=== PATIENT | male | born 1950 | race American Indian/Alaskan Native ===

== ENCOUNTER 2016-10-23 16:49 | Inpatient (IN) | payer BC, MEDICARE ==
--- NOTE | 2016-10-23 17:47 | Emergency Department Report ---
ED General Adult HPI - General Chief complaint: Chest Pain Stated complaint: CHEST PAIN Time Seen by Provider: 10/23/16 17:46 Source: patient, EMS (ems notes not available at time of chart dictation), RN notes reviewed Mode of arrival: Stretcher Limitations: Physical Limitation - History of Present Illness Initial comments: This is a 66-year-old male. He is previously unknown to me. He comes [facility] us from a local prison. Primary care doctor is Dr. Tinoco. Past medical history includes chronic pain, spinal stenosis, diabetes, bipolar, schizophrenia, congestive heart failure, atrial fibrillation, currently on anticoagulation ( xarelto). The patient indicates the chest pain as central, cannot describe exacerbating or relieving factors, patient is not certain if he's had an thromboembolic disease, he doesn't indicate compliance with his systemic anticoagulation. There is no vomiting or diaphoresis. -: Gradual Location: chest Severity scale (0 -10): 7 Consistency: intermittent Improves with: none Worsens with: none Associated Symptoms: chest pain - Related Data Home Medications Medication Instructions Recorded Confirmed Last Taken ALBUTEROL NEB's 2.5 mg INHALATION Q6HR 10/23/16 10/23/16 Unknown Acetaminophen 325 mg PO Q6HR PRN 10/23/16 10/23/16 Unknown Bumetanide 1 mg PO BID 10/23/16 10/23/16 Unknown Carvedilol 25 mg PO BID 10/23/16 10/23/16 Unknown Dilantin 100 mg PO HS 10/23/16 10/23/16 Unknown Donepezil 5 mg PO HS 10/23/16 10/23/16 Unknown Ergocalciferol 50,000 units PO QWEEK 10/23/16 10/23/16 Unknown Famotidine 20 mg PO BID 10/23/16 10/23/16 Unknown Losartan 25 mg PO DAILY 10/23/16 10/23/16 Unknown Lyrica 200 mg PO BID 10/23/16 10/23/16 Unknown Phenytoin 300 mg PO BID 10/23/16 10/23/16 Unknown Prednisone 5 mg PO DAILY 10/23/16 10/23/16 Unknown Rivaroxaban 20 mg PO DAILY 10/23/16 10/23/16 Unknown Spironolactone 25 mg PO DAILY 10/23/16 10/23/16 Unknown Venlafaxine HCl 75 mg PO BID 10/23/16 10/23/16 Unknown levETIRAcetam 1,000 mg PO BID 10/23/16 10/23/16 Unknown metFORMIN 500 mg PO BID 10/23/16 10/23/16 Unknown Allergies Allergy/AdvReac Type Severity Reaction Status Date / Time No Known Allergies Allergy Verified 10/23/16 17:35 ED Review of Systems ROS: Stated complaint: CHEST PAIN Other details as noted in HPI Constitutional: denies: malaise Eyes: denies: vision change ENT: denies: epistaxis Respiratory: see HPI Cardiovascular: chest pain Gastrointestinal: denies: nausea Genitourinary: as per HPI Musculoskeletal: as per HPI Skin: as per HPI Neurological: weakness Psychiatric: as per HPI ED Past Medical Hx - Past Medical History Hx Congestive Heart Failure: Yes Hx Diabetes: Yes Hx Psychiatric Treatment: Yes (bipolar, depression) - Surgical History Past Surgical History?: Yes Additional Surgical History: righrt leg amputation 10 years ago - Social History Smoking Status: Never Smoker Substance Use Type: None - Medications Home Medications: Home Medications Medication Instructions Recorded Confirmed Last Taken Type ALBUTEROL NEB's 2.5 mg INHALATION Q6HR 10/23/16 10/23/16 Unknown History Acetaminophen 325 mg PO Q6HR PRN 10/23/16 10/23/16 Unknown History Bumetanide 1 mg PO BID 10/23/16 10/23/16 Unknown History Carvedilol 25 mg PO BID 10/23/16 10/23/16 Unknown History Dilantin 100 mg PO HS 10/23/16 10/23/16 Unknown History Donepezil 5 mg PO HS 10/23/16 10/23/16 Unknown History Ergocalciferol 50,000 units PO QWEEK 10/23/16 10/23/16 Unknown History Famotidine 20 mg PO BID 10/23/16 10/23/16 Unknown History Losartan 25 mg PO DAILY 10/23/16 10/23/16 Unknown History Lyrica 200 mg PO BID 10/23/16 10/23/16 Unknown History Phenytoin 300 mg PO BID 10/23/16 10/23/16 Unknown History Prednisone 5 mg PO DAILY 10/23/16 10/23/16 Unknown History Rivaroxaban 20 mg PO DAILY 10/23/16 10/23/16 Unknown History Spironolactone 25 mg PO DAILY 10/23/16 10/23/16 Unknown History Venlafaxine HCl 75 mg PO BID 10/23/16 10/23/16 Unknown History levETIRAcetam 1,000 mg PO BID 10/23/16 10/23/16 Unknown History metFORMIN 500 mg PO BID 10/23/16 10/23/16 Unknown History ED Physical Exam - General Limitations: Physical Limitation General appearance: obese - Head Head exam: Present: atraumatic, normocephalic - Eye Eye exam: Present: normal appearance, EOMI. Absent: nystagmus - ENT ENT exam: Present: normal exam, normal orophraynx, mucous membranes moist, normal external ear exam - Neck Neck exam: Present: normal inspection, full ROM. Absent: tenderness, meningismus - Respiratory Respiratory exam: Present: normal lung sounds bilaterally. Absent: respiratory distress, wheezes, rales, rhonchi, stridor, chest wall tenderness, accessory muscle use, decreased breath sounds, prolonged expiratory - Cardiovascular Cardiovascular Exam: Present: regular rate, irregular rhythm, normal heart sounds. Absent: systolic murmur, diastolic murmur, rubs, gallop - GI/Abdominal GI/Abdominal exam: Present: soft, normal bowel sounds. Absent: distended, tenderness, guarding, rebound, rigid, pulsatile mass - Rectal Rectal exam: Present: deferred - Extremities Exam Extremities exam: Present: normal inspection, normal capillary refill, pedal edema, other (patient has a history of right lower extremity above-knee amputation). Absent: calf tenderness - Back Exam Back exam: Present: normal inspection, CVA tenderness (L). Absent: muscle spasm , paraspinal tenderness, vertebral tenderness - Neurological Exam Neurological exam: Present: alert, other (Extraocular movements intact. Tongue midline. No facial droop. Facial sensation intact to light touch in the V1, V2 , V3 distribution bilaterally. 5 and 5 strength in 4 extremities.. Sensation is intact to light touch in 4 extremities.). Absent: motor sensory deficit - Psychiatric Psychiatric exam: Present: flat affect - Skin Skin exam: Present: warm, dry, intact, normal color. Absent: rash ED Course Vital Signs 10/23/16 17:37 Temperature 98 F Pulse Rate 87 Respiratory 16 Rate Blood Pressure 138/74 O2 Sat by Pulse 95 Oximetry - Reevaluation(s) Reevaluation #1: 10/23/16 18:42 Differential diagnosis: Pneumonia, acute coronary syndrome, GERD, gastritis, reflux, pulmonary embolus Assessment and plan: 66-year-old male with atypical chest pain. Patient has psychiatric illness, he is a poor historian. He is not actively psychotic, and he does not require 1013. He is taking systemic anticoagulation for chronic atrial fibrillation as per his prison documentation. Patient will be admitted for acute coronary syndrome risk stratification. He appears quite comfortable now. I think pulmonary embolus is unlikely as the patient is not hypoxic, not tachycardic, and is taking systemic anticoagulation. The case is discussed with the Hospital physician, Dr. Mercado, who accepts the patient to his service. 10/23/16 21:02 ED Medical Decision Making - Lab Data Result diagrams: 10/23/16 17:56 10/23/16 17:56 Vital Signs 10/23/16 17:37 Temperature 98 F Pulse Rate 87 Respiratory 16 Rate Blood Pressure 138/74 O2 Sat by Pulse 95 Oximetry Lab Results 10/23/16 10/23/16 Range/Units 17:56 17:56 WBC 9.0 (4.5-11.0) K/mm3 RBC 4.95 (3.65-5.03) M/mm3 Hgb 12.2 (11.8-15.2) gm/dl Hct 39.1 (35.5-45.6) % MCV 79 L (84-94) fl MCH 25 L (28-32) pg MCHC 31 L (32-34) % RDW 18.2 H (13.2-15.2) % Plt Count 155 (140-440) K/mm3 Lymph % (Auto) 33.6 (13.4-35.0) % [place] % (Auto) 7.4 H (0.0-7.3) % Eos % (Auto) 1.3 (0.0-4.3) % Baso % (Auto) 0.4 (0.0-1.8) % Lymph # 3.0 (1.2-5.4) K/mm3 [place] # 0.7 (0.0-0.8) K/mm3 Eos # 0.1 (0.0-0.4) K/mm3 Baso # 0.0 (0.0-0.1) K/mm3 Seg Neutrophils % 57.3 (40.0-70.0) % Seg Neutrophils # 5.1 (1.8-7.7) K/mm3 Sodium 139 (137-145) mmol/L Chloride 99.6 (98-107) mmol/L Carbon Dioxide 28 (22-30) mmol/L BUN 10 (9-20) mg/dL Creatinine 0.8 (0.8-1.5) mg/dL Estimated GFR > 60 ml/min BUN/Creatinine Ratio 12.50 % Glucose 109 H (75-100) mg/dL Calcium 9.8 (8.4-10.2) mg/dL Troponin T < 0.010 (0.00-0.029) ng/mL - EKG Data When compared to previous EKG there are: previous EKG unavailable 10/23/16 18:43 Atrial fibrillation, 91 beats per minute, low voltage, poor R-wave progression, incomplete right bundle branch block, not morphologically consistent with STEMI. There is no prior EKG available for comparison. - Radiology Data Radiology results: image reviewed Critical care attestation.: If time is entered above; I have spent that time in minutes in the direct care of this critically ill patient, excluding procedure time. ED Disposition Clinical Impression: Chest pain, Abnormal EKG Disposition: OP ADMITTED IP TO THIS HOSP Is pt being admited?: Yes Does the pt Need Aspirin: Yes Condition: Good
[2016-10-23 18:12] LABS: Basophils % (Auto) 0.4 % (0.0-1.8); Eosinophils % (Auto) 1.3 % (0.0-4.3); Hematocrit 39.1 % (35.5-45.6); Hemoglobin 12.2 gm/dl (11.8-15.2); Mean Corpuscular HGB Conc 31 % (32-34); Mean Corpuscular Volume 79 fl (84-94); Platelet Count 155 K/mm3 (140-440); Red Blood Count 4.95 M/mm3 (3.65-5.03); Red Cell Distribution Width 18.2 % (13.2-15.2)
[2016-10-23 18:15] LABS: Mean Corpuscular Hemoglobin 25 pg (28-32)
[2016-10-23 18:31] LABS: Blood Urea Nitrogen 10 mg/dL (9-20); Calcium 9.8 mg/dL (8.4-10.2); Carbon Dioxide 28 mmol/L (22-30); Chloride 99.6 mmol/L (98-107); Glucose 109 mg/dL (75-100); Sodium 139 mmol/L (137-145)
--- NOTE | 2016-10-23 18:31 | Admit Criteria Form ---
Admission Criteria Documentation: CARDIOLOGY GRG Clinical Indications for Admission to Inpatient Care ( Place 'X' for any and all applicable criteria): Hospital admission is needed for appropriate care of the patient because of ANY ONE of the following (1): [ ] I. Hemodynamic instability as indicated by ALL of the following (1)(2)(3) (4)(5) [ ]a) Vital signs or other findings not as expected for chronic patient condition or baseline [ ]b) Instability indicated by ANY ONE of the following: [ ]i) Hypotension [ ]ii) Symptomatic Tachycardia unresponsive to treatment ( e.g., analgesia, fluids, sedation as indicated) [ ]iii) Inadequate perfusion indicated by ANY ONE of the following: [ ] 1) Lactic acidosis (> 2 mmol/L) [ ] 2) New abnormal capillary refill (> 3 seconds) [ ] 3) Reduced urine output [ ] 4) New altered mental status [ ]iv) Orthostatic vital sign changes unresponsive to treatment (e.g., fluids) [ ]v) IV inotropic or vasopressor medication required to maintain adequate blood pressure or perfusion [ ] II. Severe heart failure as indicated by ANY ONE of the following(17)(18) [ ]a) Respiratory distress [ ]b) Hypotension [ ]c) Anasarca (refractory to outpatient therapy) [ ]d) Cardiac arrhythmias of immediate concern [ ]e) Myocardial ischemia [ ] III. Cardiac arrhythmias or findings of immediate concern indicated by ANY ONE of the following (19)(20): [ ] a) Heart rhythms that are inherently dangerous or unstable indicated by ANY ONE of the following (21)(22)(23): [ ] i) Resuscitated ventricular fibrillation or cardiac arrest [ ] ii) Ventricular escape rhythm [ ] iii) Sustained ventricular tachycardia (30 seconds or more of ventricular rhythm at greater than 100 beats per minute) [ ] iv) Nonsustained ventricular tachycardia and ANY ONE of the following: [ ] 1) Suspected cardiac ischemia as cause or consequence of ventricular tachycardia [ ] 2) In setting of acute myocarditis [ ] b) Unstable cardiac conduction defects indicated by ANY ONE of the following(23)(24)(25) [ ] i) Type II second-degree atrioventricular block [ ]ii) Third-degree atrioventricular block [ ]iii) New-onset left bundle branch block with suspected myocardial ischemia [ ]c) Any heart rhythm and ANY ONE of the following (21)(22)(26)(27) (28) [ ] i) Continuous long-term ECG monitoring needed (e.g., initiation of drug requiring monitoring for more than 24 hours) [ ] ii) Patient has automatic implanted cardioverter defibrillator that is repeatedly firing, malfunctioning, or in need of immediate adjustment of settings beyond the scope of ambulatory or observation care [ ]d) Heart rhythms of concern due to ANY ONE of the following: [ ] i) Hypotension [ ] ii) Respiratory distress [ ] iii) Association with other significant symptoms (e.g., bradycardia with syncope or ongoing dizziness, supraventricular tachycardia with chest pain (14)(15)(17) [ ] IV. Monitoring for cardiac contusion beyond the scope of observation care needed [A](30)(31)(32) [ ] V. Surgical or device complication (e.g., valve replacement complication , pacemaker dysfunction) (35)(41)(44)(45)(46) [ ] . Inpatient palliative care needed. [B](49) Also use Inpatient Palliative Care Criteria [ ] VII. Nonbacterial thrombotic (marantic) endocarditis (36)(43)(47)(48) [X] VIII. Cardiology condition, symptom, or finding for which emergency and observation care has failed or are not considered appropriate. [ ] IX. Acute valvular disease requiring inpatient as indicated by ANY ONE of the following (41) [ ]a) Acute valvular regurgitation (42) [ ]b) Noninfectious valvulitis (43) [ ]c) Obstructive valve thrombosis [ ]d) Paravalvular leak [ ]e) Other significant valvular disorder remaining after emergency or observation level of care (as appropriate) [ ]X. Pericardial disease requiring inpatient treatment as indicated by ANY ONE of the following (33)(34)(35)(36)(37) [ ]a) Suspected tamponade (38)(39)(40) [ ]b) Hemopericardium [ ]c) Other significant pericardial disorder remaining after emergency or observation level of care (as appropriate) [ ] XI. Cardiac ischemia beyond scope of emergency and observation care. [ ] XII. Hypertension requiring inpatient treatment as indicated by ANY ONE of the following (6)(7)(8) [ ]a) SBP greater than 220 mm Hg or DBP greater than 120 mmHg despite treatment [ ]b) SBP greater than 140 mm Hg or DBP greater than 100 mm Hg with evidence of acute end organ damage as indicated by ANY ONE of the following [ ] i) Altered mental status [ ] ii) Acute renal failure as indicated by new onset of ANY ONE of the following (9)(10)(11)(12)(13) [ ]1) 3-fold rise in serum creatinine from baseline [ ]2) Serum creatinine greater than 4 mg/dL ( 354 micromoles/L) with acute rise greater than 0.5 mg/dL (44.2 micromoles/L) [ ]3) Reduction of more than 75% in estimated glomerular filtration rate from baseline [ ]4) Estimated glomerular filtration rate less than 35 mL/min/1.73m2 (0.59 mL/sec/1.73m2) in child up to 18 years of age [ ]5) Cessation of urine output indicated by ALL of the following [ ]A. Adequate volume status [ ]B. Inadequate urine output as indicated by ANY ONE of the following [ ]a. Urine output less than 0.3 mL/kg/hr for 24 hours [ ]b. Anuria (urine output less than 0.1 mL/kg/hr) for 12 hours [ ] iii) Aortic dissection [ ] iv) Myocardial Ischemia [ ] v) Left ventricular heart failure [ ]vi) Retinal Hemorrhage [ ]vii) Other significant finding [ ]c) Hypertension in child requiring inpatient treatment as indicated by ALL of the following(14)(15)(16) [ ] i) Outpatient treatment not effective, not available, or not appropriate [ ]ii) SBP or DBP greater than 95th percentile for age [ ]iii) Evidence of acute end organ damage as indicated by ANY ONE of the following [ ]1) Altered mental status [ ]2) Acute renal failure as indicated by new onset of ANY ONE of the following(9)(10)(11)(12)(13) [ ]A. 3-fold rise in serum creatinine from baseline [ ]B. Serum creatinine greater than 4 mg/dL (354 micromoles/L) with acute rise greater than 0.5 mg/dL (44.2 micromoles/L) [ ]C. Reduction of more than 75% in estimated glomerular filtration rate from baseline [ ]D. Estimated glomerular filtration rate less than 35 mL/min/1.73m2 (0.59 mL/sec/1.73m2) in child up to 18 years of age [ ]E. Cessation of urine output indicated by ALL of the following [ ]a. Adequate volume status [ ]b. Inadequate urine output as indicated by ANY ONE of the following [ ]i) Urine output less than 0.3 mL/kg/hr for 24 hours [ ]ii) Anuria ( urine output less than 0.1 mL/kg/hr) for 12 hours [ ]3) Severe headache [ ]4) Visual disturbance [ ]5) Retinal hemorrhage [ ]6) Other significant finding [ ]XIII. Complications of transplanted heart indicated by ANY ONE of the following(61): [ ]a) Acute graft rejection requiring inpatient management (eg, intravenous immunosuppression)(62)(63) [ ]b) Acute graft heart failure indicated by ANY ONE of the following(64): [ ]i) Hemodynamic instability [ ]ii) Cardiac arrhythmias of immediate concern [ ]iii) Pulmonary edema that is very severe (eg, mechanical ventilation needed, imminent or likely, need for 100% oxygen to keep oxygen saturation above 90%) [ ]iv) Pulmonary edema that is persistent as indicated by ALL of the following: [ ]1) New need for oxygen therapy to keep oxygen saturation above 90% (or increased FiO2 need from baseline) [ ]2) Has not improved sufficiently with emergency department or observation care IV diuretics or other heart failure treatments[E] [ ]v) Altered mental status that is severe or persistent [ ]vi) Increased creatinine (new on laboratory test) with reduction of more than 50% in estimated glomerular filtration rate from baseline [ ]vii) Progressively (ongoing) rising creatinine (known from past laboratory test) with reduction of more than 25% in estimated glomerular filtration rate from baseline [ ]viii) Acute renal failure [ ]ix) Acute peripheral ischemia (eg, examination shows pulseless, cool, mottled, or cyanotic extremity) [ ]x) Pulmonary artery catheter monitoring needed [ ]xi) Other sign or symptom of heart failure requiring inpatient treatment (ie, too severe or not responsive to outpatient and observation care treatment) [ ]c) Infection requiring inpatient management (eg, Hemodynamic instability, need for intravenous antimicrobial treatment)(66)(67)(68)(69)(70) [ ]d) Cardiac allograft vasculopathy requiring inpatient management ( eg evidence of cardiac ischemia)(71) [ ]e) Other complication of transplanted heart (eg, stroke, severe pulmonary hypertension, severe valvular dysfunction) requiring inpatient management(72) The original [facility] [employer] content created by [facility] has been revised. The portions of the content which have been revised are identified through the use of italic text or in bold, and [facility] has neither reviewed nor approved the modified material. All other unmodified content is copyright [facility] [employer] Please see references footnoted in the original [facility] [employer] edition 2016 Admission Criteria Met: Yes
[2016-10-23] MEDS ORDERED: BABY ASPIRIN PO ONE (18:45)
[2016-10-23 18:49] LABS: INR 1.15 (0.87-1.13)
[2016-10-23 18:50] LABS: Partial Thromboplastin Time 39.1 Sec. (24.2-36.6)
[2016-10-23 19:20] LABS: Anion Gap 16 mmol/L; Potassium 4.9 mmol/L (3.6-5.0)
[2016-10-23] MEDS ORDERED: ACETAMINOPHEN 325 MG PO PRN (20:14)
--- NOTE | 2016-10-23 20:14 | Event Note ---
Date: 10/23/16 See H/p in reports Chest pain r/o ME HTN Morbid obesity S/p R AKA
[2016-10-23] MEDS ORDERED: [UNRECOGNIZED DRUG - OTHER] INHALATION SCH (20:15)
[2016-10-23] MEDS ORDERED: SODIUM CHLORIDE FLUSH SYRINGE 10 ML IV PRN (20:19)
[2016-10-23] MEDS ORDERED: TYLENOL PO PRN ×2 (20:25→20:30)
[2016-10-23] MEDS ORDERED: NON-FORMULARY (Losartan 25 MG) PO SCH (20:30)
[2016-10-23] MEDS ORDERED: NON-FORMULARY (Prednisone 5 MG) PO SCH (20:30)
[2016-10-23] MEDS ORDERED: DILAUDID IV PRN (20:30)
[2016-10-23] MEDS ORDERED: NON-FORMULARY (Spironolactone 25 MG) PO SCH (20:30)
[2016-10-23] MEDS ORDERED: DULCOLAX PR PRN (20:30)
[2016-10-23] MEDS ORDERED: RIVAROXABAN 20 MG PO SCH (20:30)
[2016-10-23] MEDS ORDERED: ZOFRAN IV PRN (20:30)
[2016-10-23] MEDS ORDERED: MILK OF MAGNESIA PO PRN (20:30)
--- NOTE | 2016-10-23 21:09 | History and Physical Report ---
CHIEF COMPLAINT: Left-sided chest pain since morning. HISTORY OF PRESENT ILLNESS: A 66-year-old -[place] male, heavy set with a right above-knee amputation and multiple medical problems including chronic pain, diabetes, bipolar disorder, schizophrenia, congestive heart failure, atrial fibrillation, comes in for retrosternal left-sided chest pain. No radiation. The patient has AFib and is on Xarelto. The patient lives in a fpc. Some diaphoresis present. No palpitations. No radiation. Pain is about 6 on a scale of 1 to 10, intermittent in nature. No exacerbating or relieving factors. This is the first episode of chest pain. Does not remember having a catheterization or stress test in the past. PAST MEDICAL HISTORY: 1. As mentioned asthma. 2. Hypertension. 3. Gastroesophageal reflux disease. 4. Peripheral neuropathy. 5. Seizure disorder. 6. Atrial fibrillation with anticoagulation. 7. Depression. 8. Type 2 diabetes. 9. Bipolar disorder. 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 SOCIAL HISTORY: Does not smoke. No alcohol, no recreational drugs. CURRENT MEDICATIONS: Albuterol 2.5 q.6 h. p.r.n., acetaminophen 325 mg p.o. q. 6 p.r.n., bumetanide 1 mg p.o. b.i.d., Coreg 25 mg twice a day, Dilantin 100 mg p.o. at bedtime, donepezil 5 mg p.o. at bedtime, vitamin D 50,000 units q. weekly, famotidine 20 mg twice a day, losartan 25 mg once a day, Lyrica 200 mg twice a day, phenytoin 300 mg twice a day, prednisone 5 mg p.o. daily, Xarelto 20 mg p.o. daily, spironolactone 25 mg p.o. daily, Effexor 75 mg twice a day, Keppra 1000 mg twice a day, metformin 500 mg twice a day. ALLERGIES: No known allergies. FAMILY HISTORY: Significant for hypertension. PERSONAL HISTORY: Does not smoke. No alcohol, no recreational drugs. Lives at a local fpc. Gets around by the electric power chair. REVIEW OF SYSTEMS: CONSTITUTIONAL: No weight loss, no weight gain. No fever, no chills. HEENT: No sore throat. No postnasal drip. CARDIOVASCULAR AND RESPIRATORY: As mentioned in history of present illness. Left-sided chest pain and retrosternal chest pain present. No cough, no wheezing. GASTROINTESTINAL: No nausea, no vomiting, no diarrhea. MUSCULOSKELETAL: No joint pains. CENTRAL NERVOUS SYSTEM: No syncope, no seizures. EXTREMITIES: Right ____ amputation secondary to right knee surgery. CENTRAL NERVOUS SYSTEM: No syncope, no seizures, no focal deficits. SKIN: No rashes. PSYCHIATRIC: No depression. No suicidal or homicidal ideation. A 14-point review of systems done, otherwise negative other than the chest pain. 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 VITAL SIGNS: Blood pressure is 138/74, temperature is 98, pulse is 87, respirations 16, sats are 95%. HEENT: Unremarkable. Pupils equal and reactive. NECK: Supple, no lymphadenopathy, no thyromegaly. LUNGS: Clear to auscultation and percussion. Good air entry. CARDIOVASCULAR: S1, S2 heard. No gallop, no murmur, no rub. Apical impulse in left fifth intercostal space and midclavicular line. ABDOMEN: Soft and benign. No hepatosplenomegaly. No guarding, no rigidity. Hernial orifices are normal. EXTREMITIES: Left lower extremity, good pedal pulses. Right lower extremity above-knee amputation. SKIN: Normal. LABORATORY DATA: White count is 9000, H and H is 12.2 and 39.1, platelet count is 155,000. Protime is 14.6. INR is 1.15. Sodium is 139, potassium is 4.9, chloride is 99.6, bicarbonate is 28, BUN and creatinine is 10 and 0.8. Estimated GFR is more than 60. Glucose is 109, calcium is 9.8. Troponin is less than 0.010. Phenytoin is 29.2, high. DIAGNOSTIC DATA: EKG shows atrial fibrillation, heart rate of 80 per minute, rate controlled. Chest x-ray, no acute infiltrates. ASSESSMENT AND PLAN: 1. Chest pain, rule out myocardial infarction, chest pain protocol. Differential diagnosis of costochondritis, acute coronary syndrome and gastroesophageal reflux disease. I am more in favor of gastroesophageal reflux disease with severe reflux because of his morbid obesity. We will get a cardiac Lexiscan in the morning and also serial cardiac enzymes in the meantime. The question is whether he needs echocardiogram at this point. 2. Asthma/chronic obstructive pulmonary disease. Continue albuterol inhalers 2 puffs q.i.d. p.r.n. 3. Hypertension. Continue Coreg 25 b.i.d. and losartan 25 mg p.o. daily. 4. Seizure disorder. Continue phenytoin 300 mg twice a day. We shall decrease it to 200 mg because of the high phenytoin levels and also Keppra 1000 mg twice a day 5. Mild dementia. Continue Aricept (donepezil) 5 mg p.o. at bedtime. 6. Type 2 diabetes. The patient is on metformin, which may be secondary to metabolic syndrome. We will get Accu-Cheks and coverage. 7. Gastroesophageal reflux disease. Continue famotidine 20 mg twice a day. 8. Peripheral neuropathy. Continue Lyrica 200 mg twice a day 9. Atrial fibrillation. Continue Xarelto at 20 mg daily. 10. Depression. Continue Effexor 75 mg twice a day. 11. Deep venous thrombosis prophylaxis, Lovenox 40 mg subcutaneous daily. JOB# [id number] VSM/NTS
[2016-10-23 21:57] LABS: Creatine Kinase 57 units/L (55-170)
[2016-10-23 21:59] LABS: Creatine Kinase MB < 1.0 ng/mL (0.0-4.0)
[2016-10-23] MEDS ORDERED: DONEPEZIL 5 MG PO SCH (22:00)
[2016-10-23] MEDS ORDERED: LYRICA 200 MG PO SCH (22:00)
[2016-10-23] MEDS ORDERED: BUMETANIDE 1 MG PO SCH (22:00)
[2016-10-23] MEDS ORDERED: PHENYTOIN 300 MG PO SCH (22:00)
[2016-10-23] MEDS ORDERED: VENLAFAXINE HCL 75 MG PO SCH (22:00)
[2016-10-23] MEDS ORDERED: DILANTIN 100 MG PO SCH (22:00)
[2016-10-23] MEDS ORDERED: NON-FORMULARY (Carvedilol 25 MG) PO SCH (22:00)
[2016-10-23] MEDS ORDERED: NON-FORMULARY (Metformin 500 MG) PO SCH (22:00)
[2016-10-23] MEDS ORDERED: NON-FORMULARY (Famotidine 20 MG) PO SCH (22:00)
[2016-10-23] MEDS ORDERED: NON-FORMULARY (Levetiracetam 1,000 MG) PO SCH (22:00)
[2016-10-23] MEDS: DILANTIN PO SCH (22:40)
[2016-10-23] MEDS: PEPCID PO SCH (22:41)
[2016-10-23] MEDS: LYRICA PO SCH ×2 (22:42→22:43)
[2016-10-23] MEDS: COZAAR PO SCH (22:42)
[2016-10-23] MEDS: KEPPRA PO SCH (22:44)
[2016-10-23] MEDS: COREG PO SCH (22:45)
[2016-10-23] MEDS: EFFEXOR PO SCH (22:45)
[2016-10-23] MEDS: ALDACTONE PO SCH (22:46)
[2016-10-23] MEDS: ARICEPT PO SCH (22:46)
[2016-10-23] MEDS: DELTASONE PO SCH (22:46)
[2016-10-23] MEDS: GLUCOPHAGE PO SCH (22:47)
[2016-10-23] MEDS: XARELTO PO SCH (22:50)
[2016-10-23] MEDS: BUMEX PO SCH (22:51)
[2016-10-23] MEDS: AMBIEN PO PRN (22:51)
[2016-10-23] MEDS: NORCO 5/325 PO PRN (22:51)
[2016-10-23] MEDS: NOVOLOG SUB-Q SCH (22:53)
[2016-10-24] MEDS: PROVENTIL IH SCH ×4 (02:34→21:18)
[2016-10-24 06:59] LABS: Creatine Kinase MB < 1.0 ng/mL (0.0-4.0)
[2016-10-24 07:02] LABS: Creatine Kinase 27 units/L (55-170)
--- NOTE | 2016-10-24 07:11 | XRay Report ---
Single view chest: History: Chest pain. Findings: Cardiomegaly. Trachea is midline. Mild pulmonary venous congestion. No consolidation or pleural effusion. Impression: Cardiomegaly with mild pulmonary venous congestion.
--- NOTE | 2016-10-24 09:18 | Discharge Summary ---
Providers - Providers Date of Admission: 10/23/16 18:44 Date of discharge: 10/24/16 Attending physician: AMARA CHARLES MD 10/23/16 Consult to Cardiac Rehabilitation [CONS] Routine Reason For Exam: Phase I 10/24/16 04:13 Consult to Dietitian/Nutrition [CONS] Routine Physician Instructions: Reason For Exam: Reason for Consult: Torsten score of 14 10/24/16 08:48 Consult to Physician [CONS] Routine Consulting Provider: FRANDY SOTELO Reason For Exam: chest pain Primary care physician: AUDI ALCARAZ Hospitalization Reason for admission: CHEST PAIN Condition: Good Hospital course: The patient is a 66-year-old male with a past medical history significant for hypertension, atrial fibrillation on Xarelto, status post right AKA, bipolar disorder, schizophrenia, morbid obesity, and chronic pain syndrome and 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 He presented with complaints of chest pain 3 days prior to arrival and states that the pain is reproducible. He denies any precipitating, aggravating or relieving factors. He is a poor historian. He denies any shortness of breath, palpitations, nausea, vomiting, diaphoresis, dizziness, or syncope. patient unfortunately cannot obtain stress test due to weight, obesity management discussed in detail with the patient. Cardiology consulted and Echo cardiogram ordered and will be follow with cardiology for result. Plan discussed with the patient and also with the daughter, Gini Discharge Diagnosis * Atypical Chest pain * Atrial fibrillation -Chronic. * HTN * Morbid obesity * s/p right AKA * Bipolar / schizophrenia Disposition: DISCHARGED TO HOME OR SELFCARE Time spent for discharge: 35 MINS Core Measure Documentation - Palliative Care Palliative Care/ Comfort Measures: Not Applicable - Core Measures Any of the following diagnoses?: none - VTE Discharge Requirements Deep Vein Thrombosis/Pulmonary Embolism Present on Admission: No Exam - Physical Exam Narrative exam: VITAL SIGNS: Reviewed. GENERAL: The patient appeared well nourished and normally developed. Morbidly obese. Vital signs as documented. HEAD: No signs of head trauma. EYES: Pupils are equal. Extraocular motions intact. EARS: Hearing grossly intact. MOUTH: Oropharynx is normal. NECK: No adenopathy, no JVD. CHEST: Chest with clear breath sounds bilaterally. No wheezes, rales, or rhonchi. CARDIAC: Regular rate and rhythm. S1 and S2, without murmurs, gallops, or rubs. VASCULAR: No Edema. Peripheral pulses normal and equal in all extremities. ABDOMEN: Soft, without detectable tenderness. No sign of distention. No rebound or guarding, and no masses palpated. Bowel Sounds normal. MUSCULOSKELETAL: Good range of motion of all major joints. Extremities Right BKA NEUROLOGIC EXAM: Alert and oriented x 3. No focal sensory or strength deficits. Speech normal. Follows commands. PSYCHIATRIC: Mood normal. SKIN: No rash or lesions. - Constitutional Vitals: Temp Pulse Resp BP Pulse Ox 97.8 F 70 20 132/61 95 10/24/16 04:05 10/24/16 04:05 10/24/16 04:05 10/24/16 04:05 10/24/16 04:05 Plan Activity: advance as tolerated, fall precautions Diet: low fat, low salt Special Instructions: record daily weights, record daily BP diary, record blood sugar diary, physical therapy, occupational therapy Follow up with: AUDI ALCARAZ MD [Primary Care Provider] - 3-5 Days Prescriptions: Famotidine [Pepcid] 20 mg PO BID #30 tablet HYDROcodone/APAP 5-325 [[place] 5-325 mg TAB] 1 each PO Q6H PRN #20 tablet PRN Reason: Pain, Moderate (4-6)
[2016-10-24] MEDS: LYRICA PO SCH ×4 (10:47→21:28)
[2016-10-24] MEDS: COREG PO SCH ×2 (10:48→21:29)
[2016-10-24] MEDS: PEPCID PO SCH ×2 (10:48→21:28)
[2016-10-24] MEDS: KEPPRA PO SCH ×2 (10:48→21:28)
[2016-10-24] MEDS: COZAAR PO SCH (10:49)
[2016-10-24] MEDS: DELTASONE PO SCH (10:50)
[2016-10-24] MEDS: DILANTIN PO SCH ×2 (10:50→21:28)
[2016-10-24] MEDS: ALDACTONE PO SCH (10:50)
[2016-10-24] MEDS: EFFEXOR PO SCH ×2 (10:51→21:29)
[2016-10-24] MEDS: NORCO 5/325 PO PRN ×2 (10:57→18:18)
[2016-10-24] MEDS: BUMEX PO SCH ×2 (10:57→21:29)
[2016-10-24] MEDS: GLUCOPHAGE PO SCH ×2 (11:06→18:18)
[2016-10-24] MEDS: XARELTO PO SCH (11:06)
--- NOTE | 2016-10-24 11:41 | Consultation ---
History of Present Illness Consult date: 10/24/16 Requesting physician: AMARA CHARLES Consult reason: chest pain History of present illness: The patient is a 66-year-old male with a past medical history significant for hypertension, atrial fibrillation on Xarelto, status post right AKA, bipolar disorder, schizophrenia, morbid obesity, and chronic pain syndrome. He has previously been known to our practice. 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 He presented with complaints of chest pain 3 days prior to arrival. He describes his chest pain as a nonexertional, nonradiating, midsternal, constant chest pressure. He denies any precipitating, aggravating or relieving factors. He is a poor historian. He denies any shortness of breath, palpitations, nausea, vomiting, diaphoresis, dizziness, or syncope. Past History Past Medical History: atrial fib, hypertension, other (morbid obesity; s/p right AKA; bipolar; schizophrenia ) Past Surgical History: total knee replacement, Other (right AKA - states he developed infection in right knee after right TKR and required amputation ) Social history: denies: smoking, alcohol abuse, prescription drug abuse Medications and Allergies Allergies Allergy/AdvReac Type Severity Reaction Status Date / Time No Known Allergies Allergy Verified 10/23/16 17:35 Home Medications Medication Instructions Recorded Confirmed Last Taken Type ALBUTEROL NEB's 2.5 mg INHALATION Q6HR 10/23/16 10/23/16 Unknown History Acetaminophen 325 mg PO Q6HR PRN 10/23/16 10/23/16 Unknown History Bumetanide 1 mg PO BID 10/23/16 10/23/16 Unknown History Carvedilol 25 mg PO BID 10/23/16 10/23/16 Unknown History Dilantin 100 mg PO HS 10/23/16 10/23/16 Unknown History Donepezil 5 mg PO HS 10/23/16 10/23/16 Unknown History Ergocalciferol 50,000 units PO QWEEK 10/23/16 10/23/16 Unknown History Famotidine 20 mg PO BID 10/23/16 10/23/16 Unknown History Losartan 25 mg PO DAILY 10/23/16 10/23/16 Unknown History Lyrica 200 mg PO BID 10/23/16 10/23/16 Unknown History Phenytoin 300 mg PO BID 10/23/16 10/23/16 Unknown History Prednisone 5 mg PO DAILY 10/23/16 10/23/16 Unknown History Rivaroxaban 20 mg PO DAILY 10/23/16 10/23/16 Unknown History Spironolactone 25 mg PO DAILY 10/23/16 10/23/16 Unknown History Venlafaxine HCl 75 mg PO BID 10/23/16 10/23/16 Unknown History levETIRAcetam 1,000 mg PO BID 10/23/16 10/23/16 Unknown History metFORMIN 500 mg PO BID 10/23/16 10/23/16 Unknown History Famotidine [Pepcid] 20 mg PO BID #30 tablet 10/24/16 Unknown Rx HYDROcodone/APAP 5-325 [[place] 1 each PO Q6H PRN #20 tablet 10/24/16 Unknown Rx 5-325 mg TAB] Active Meds: Active Medications Acetaminophen (Tylenol) 650 mg PO Q4H PRN PRN Reason: Pain MILD(1-3)/Fever >100.5/[place] Acetaminophen/Hydrocodone Bitart ([place] 5/325) 2 each PO Q6H PRN PRN Reason: Pain, Moderate (4-6) Last Admin: 10/24/16 10:57 Dose: 2 each Albuterol (Proventil) 2.5 mg IH Q6HRT [facility] Last Admin: 10/24/16 07:42 Dose: 2.5 mg Bisacodyl (Dulcolax) 10 mg NE QDAY PRN PRN Reason: Constipation unrelieved by MOM Bumetanide (Bumex) 1 mg PO BID [facility] Last Admin: 10/24/16 10:57 Dose: 1 mg Carvedilol (Coreg) 25 mg PO BID [facility] Last Admin: 10/24/16 10:48 Dose: 25 mg Donepezil HCl (Aricept) 5 mg PO QHS [facility] Last Admin: 10/23/16 22:46 Dose: 5 mg Famotidine (Pepcid) 20 mg PO BID [facility] Last Admin: 10/24/16 10:48 Dose: 20 mg Hydromorphone HCl (Dilaudid) 1 mg IV Q3H PRN PRN Reason: Pain , Severe (7-10) Insulin Aspart (Novolog) 0 units SUB-Q ACHS [facility] PRN Reason: Protocol Last Admin: 10/23/16 22:53 Dose: Not Given Levetiracetam (Keppra) 1,000 mg PO BID [facility] Last Admin: 10/24/16 10:48 Dose: 1,000 mg Losartan Potassium (Cozaar) 25 mg PO QDAY [facility] Last Admin: 10/24/16 10:49 Dose: 25 mg Magnesium Hydroxide (Milk Of Magnesia) 30 ml PO Q4H PRN PRN Reason: Constipation Metformin HCl (Glucophage) 500 mg PO BIDDIAB [facility] Last Admin: 10/24/16 11:06 Dose: 500 mg Ondansetron HCl (Zofran) 4 mg IV Q8H PRN PRN Reason: N/V unrelieved by Reglan Phenytoin (Dilantin) 300 mg PO QAM [facility] Last Admin: 10/24/16 10:50 Dose: 300 mg Phenytoin (Dilantin) 400 mg PO QHS [facility] Last Admin: 10/23/16 22:40 Dose: 400 mg Prednisone (Deltasone) 5 mg PO QDAY [facility] Last Admin: 10/24/16 10:50 Dose: 5 mg Pregabalin (Lyrica) 150 mg PO BID [facility] Last Admin: 10/24/16 10:47 Dose: 150 mg Pregabalin (Lyrica) 50 mg PO BID [facility] Last Admin: 10/24/16 10:47 Dose: 50 mg Rivaroxaban (Xarelto) 20 mg PO QDDIAB [facility] Last Admin: 10/24/16 11:06 Dose: 20 mg Sodium Chloride (Sodium Chloride Flush Syringe 10 Ml) 10 ml IV PRN PRN PRN Reason: LINE FLUSH Spironolactone (Aldactone) 25 mg PO QDAY [facility] Last Admin: 10/24/16 10:50 Dose: 25 mg Venlafaxine HCl (Effexor) 75 mg PO BID [facility] Last Admin: 10/24/16 10:51 Dose: 75 mg Zolpidem Tartrate (Ambien) 5 mg PO QHS PRN PRN Reason: Insomnia Last Admin: 10/23/16 22:51 Dose: 5 mg Review of Systems Constitutional: no weight loss, no weight gain, no fever, no chills, no sweats Ears, nose, mouth and throat: no ear pain, no nasal congestion, no nasal discharge, no sinus pressure, no sinus pain Cardiovascular: chest pain, no orthopnea, no palpitations, no rapid/irregular heart beat, no edema, no syncope, no lightheadedness, no shortness of breath, no high blood pressure, no leg edema Respiratory: no cough, no shortness of breath, no congestion, no wheezing, no pain Gastrointestinal: no abdominal pain, no nausea, no vomiting, no diarrhea, no constipation Genitourinary Male: no dysuria, no hematuria, no flank pain, no discharge, no urinary frequency, no urinary hesitancy Musculoskeletal: other (chronic generalized pain ) Integumentary: no rash, no pruritis, no redness, no sores, no wounds Neurological: no paralysis, no weakness, no parathesias, no numbness, no tingling, no seizures, no syncope Psychiatric: mood swings Endocrine: no cold intolerance, no heat intolerance Hematologic/Lymphatic: no easy bruising, no easy bleeding, no lymphadenopathy Allergic/Immunologic: no urticaria, no wheezing, no persistent infections Physical Examination Vital Signs Temp Pulse Resp BP Pulse Ox 98 F 87 16 138/74 95 10/23/16 17:37 10/23/16 17:37 10/23/16 17:37 10/23/16 17:37 10/23/16 17:37 General appearance: no acute distress HEENT: Positive: PERRL, Normocephaly, Mucus Membranes Moist Neck: Positive: neck supple, trachea midline Cardiac: Positive: irregularly irregular, S1/S2 Lungs: Positive: Decreased Breath Sounds Neuro: Positive: Grossly Intact, Cranial Nerve 2-12 Intact Abdomen: Positive: Unremarkable, Soft, Active Bowel Sounds Skin: Positive: Clear. Negative: Rash, Wound Musculoskeletal: No Pain, Normal Range of Motion Extremities: Present: upper extr. pulses, lower extr. pulses, edema (trace chronic BLE edema ) Results 10/23/16 17:56 10/23/16 17:56 Cardiac Enzymes 10/23/16 10/24/16 Range/Units 20:57 05:44 CK-MB (CK-2) < 1.0 < 1.0 (0.0-4.0) ng/mL - Imaging and Cardiology Echo: pending EKG: report reviewed, image reviewed EKG interpretations - Telemetry EKG Rhythm: Atrial Fibrillation - EKG Supraventricular dysrhythmia: atrial fibrillation Assessment and Plan Assessment: Chest pain, aypical - ECG with NAF; Zoe negative for AMI. Atrial fibrillation - ? chronic; rate controlled; on Xarelto. HTN Morbid obesity s/p right AKA Bipolar / schizophrenia Plan: Obtain echo. Pending echo reveals no gross abnormalities, pt may discharge from cardiology standpoint. Consider ischemic eval (PET) as OP for risk stratification. Assessment and plan reviewed with pt at bedside. The patient has been seen in conjunction with Dr. Stern who agrees with the assessment and plan of care.
[2016-10-24] MEDS: AMBIEN PO PRN (21:29)
[2016-10-24] MEDS: ARICEPT PO SCH (21:29)
[2016-10-24] MEDS: NOVOLOG SUB-Q SCH (21:29)
[2016-10-25] MEDS: PROVENTIL IH SCH ×5 (02:30→19:53)
[2016-10-25] MEDS: NORCO 5/325 PO PRN ×3 (04:30→21:11)
[2016-10-25] MEDS: XARELTO PO SCH (08:35)
[2016-10-25] MEDS: KEPPRA PO SCH ×2 (11:11→21:10)
[2016-10-25] MEDS: PEPCID PO SCH ×2 (11:11→21:11)
[2016-10-25] MEDS: LYRICA PO SCH ×4 (11:12→21:11)
[2016-10-25] MEDS: COREG PO SCH ×2 (11:12→21:12)
[2016-10-25] MEDS: DILANTIN PO SCH ×2 (11:13→21:09)
[2016-10-25] MEDS: COZAAR PO SCH (11:14)
[2016-10-25] MEDS: ALDACTONE PO SCH (11:15)
[2016-10-25] MEDS: EFFEXOR PO SCH ×2 (11:15→21:12)
[2016-10-25] MEDS: BUMEX PO SCH ×2 (11:15→21:09)
[2016-10-25] MEDS: GLUCOPHAGE PO SCH ×2 (11:17→21:10)
[2016-10-25] MEDS: DELTASONE PO SCH (11:23)
--- NOTE | 2016-10-25 12:20 | Progress Note ---
Assessment and Plan Chest pain, aypical - ECG with NAF; Zoe negative for AMI. Atrial fibrillation - ? chronic; rate controlled; on Xarelto. HTN Morbid obesity s/p right AKA Bipolar / schizophrenia Echo. Moderate LVH. EF is 60%. Plan:May be Dc. To office for Pet scan. Here the table for Spect images was not possible because of his weight. Subjective Date of service: 10/25/16 Interval history: No chest pain. Having Echocardiography. Objective Vital Signs Temp Pulse Pulse Pulse Pulse Resp Resp 10/25/16 11:15 64 10/25/16 11:14 64 10/25/16 11:12 64 10/25/16 08:30 72 20 10/25/16 08:20 70 18 10/25/16 07:35 97.8 F 64 22 10/25/16 04:00 98.7 F 72 20 10/25/16 02:51 78 18 10/25/16 02:30 74 16 10/25/16 00:52 98.9 F 70 20 10/25/16 00:51 98.9 F 70 18 10/24/16 22:00 68 10/24/16 21:41 82 16 10/24/16 21:20 66 16 10/24/16 21:19 10/24/16 20:00 98.1 F 83 22 10/24/16 18:51 97.9 F 84 16 10/24/16 13:25 73 20 10/24/16 13:15 76 20 BP BP Pulse Ox 10/25/16 11:15 135/76 10/25/16 11:14 131/76 10/25/16 11:12 135/74 10/25/16 08:30 10/25/16 08:20 97 10/25/16 07:35 135/76 98 10/25/16 04:00 124/53 92 10/25/16 02:51 10/25/16 02:30 10/25/16 00:52 127/59 93 10/25/16 00:51 127/59 93 10/24/16 22:00 10/24/16 21:41 10/24/16 21:20 10/24/16 21:19 96 10/24/16 20:00 107/55 95 10/24/16 18:51 156/84 97 10/24/16 13:25 10/24/16 13:15 - Physical Examination HEENT: Positive: PERRL, Normocephaly, Mucus Membranes Moist Neck: Positive: neck supple, trachea midline. Negative: JVD/HJR Cardiac: Positive: Irregularly Regular Lungs: Positive: Normal Breath Sounds Neuro: Positive: Grossly Intact, Cranial Nerve 2-12 Intact Abdomen: Positive: Unremarkable, Soft, Active Bowel Sounds Skin: Positive: Clear. Negative: Rash, Wound Musculoskeletal: No Pain, Normal Range of Motion Extremities: Present: upper extr. pulses, lower extr. pulses, edema (trace chronic BLE edema ) - Imaging and Cardiology EKG: report reviewed, image reviewed Echo: pending
[2016-10-25] MEDS: NOVOLOG SUB-Q SCH (21:12)
[2016-10-25] MEDS: ARICEPT PO SCH (21:12)
[2016-10-26 00:33] VITALS: BP 115/61
[2016-10-26] MEDS: PROVENTIL IH SCH (01:36)
[2016-10-26] MEDS: NORCO 5/325 PO PRN (03:04)
== END 2016-10-26 04:56 | DRG 392 ==
LOC: ED 16:49 → 4A 18:44
PROVIDERS: ADMIT Internal Medicine; ATTEND Internal Medicine
DX: K21.9 Gastro-esophageal reflux disease without esophagitis (principal); Z68.43 Body mass index [BMI] 50.0-59.9, adult; R94.31 Abnormal electrocardiogram [ECG] [EKG]; I48.91 Unspecified atrial fibrillation; F31.9 Bipolar disorder, unspecified; F20.9 Schizophrenia, unspecified; E66.01 Morbid (severe) obesity due to excess calories; G89.4 Chronic pain syndrome; I11.0 Hypertensive heart disease with heart failure; I50.9 Heart failure, unspecified; E11.42 Type 2 diabetes mellitus with diabetic polyneuropathy; G40.909 Epilepsy, unspecified, not intractable, without status epilepticus; J44.9 Chronic obstructive pulmonary disease, unspecified; F03.90 Unspecified dementia, unspecified severity, without behavioral disturbance, psychotic disturbance, mood disturbance, and anxiety; Z96.651 Presence of right artificial knee joint; Z89.611 Acquired absence of right leg above knee; Z79.01 Long term (current) use of anticoagulants; Z82.49 Family history of ischemic heart disease and other diseases of the circulatory system
CPT/HCPCS: 36415; 71010; 80048; 80185; 82550; 82553; 82962; 83036; 84484; 85025; 85610; 85730; 93005; 93010; 93306; 94640; J7512

== ENCOUNTER 2018-08-12 18:29 | Emergency (ER) | payer MEDICARE ==
--- NOTE | 2018-08-12 20:17 | Emergency Department Report ---
HPI - General Chief Complaint: Extremity Injury, Lower Time Seen by Provider: 08/12/18 20:06 - HPI HPI: Lorenz 25 The patient is a 68-year-old male presenting with a chief complaint of left ankle pain. Patient states 2 days ago while in the mall in his wheelchair he actually got his left lower extremity closed an elevator doors. Patient complains of pain in the left leg since the incident. Patient is a resident at a longterm had an x-ray performed which revealed a fracture. Patient was sent to the ED for further evaluation. Location: Left ankle Duration: [See above] Quality: Pain Severity: Moderate Modifying factors: [see above] Context: [see above] Mode of transportation: [not driving] ED Past Medical Hx - Past Medical History Previous Medical History?: Yes Hx Hypertension: Yes Hx Congestive Heart Failure: Yes Hx Arthritis: Yes Hx Psychiatric Treatment: Yes (bipolar, depression) Hx Asthma: Yes - Surgical History Past Surgical History?: Yes Additional Surgical History: right leg amputation 10 years ago - Family History Family history: no significant - Social History Smoking Status: Never Smoker Substance Use Type: None - Medications Home Medications: Home Medications Medication Instructions Recorded Confirmed Last Taken Type ALBUTEROL NEB's 2.5 mg INHALATION Q6HR 10/23/16 07/17/17 Unknown History Bumetanide 1 mg PO BID 10/23/16 07/17/17 Unknown History Carvedilol 25 mg PO BID 10/23/16 07/17/17 Unknown History Donepezil 5 mg PO HS 10/23/16 07/17/17 Unknown History Ergocalciferol 50,000 units PO QWEEK 10/23/16 07/17/17 Unknown History Famotidine 20 mg PO BID 10/23/16 07/17/17 Unknown History Losartan 25 mg PO DAILY 10/23/16 07/17/17 Unknown History Phenytoin 300 mg PO BID 10/23/16 07/17/17 Unknown History Prednisone 5 mg PO DAILY 10/23/16 07/17/17 Unknown History Spironolactone 25 mg PO DAILY 10/23/16 07/17/17 Unknown History HYDROcodone/APAP 5-325 [[place] 1 each PO Q6H PRN #20 tablet 10/24/16 07/17/17 Unknown Rx 5-325 mg TAB] Lisinopril [Zestril TAB] 40 mg PO BID #60 tablet 07/19/17 Unknown Rx Phenytoin [Dilantin] 100 mg PO QHS #30 capsule.er 07/19/17 Unknown Rx Phenytoin [Dilantin] 300 mg PO BID #60 capsule.er 07/19/17 Unknown Rx Pregabalin [Lyrica] 150 mg PO BID 30 Days #60 capsule 07/19/17 Unknown Rx Rivaroxaban [Xarelto] 20 mg PO DAILY #30 tablet 07/19/17 Unknown Rx levETIRAcetam [Keppra TAB] 1,000 mg PO BID #60 tablet 07/19/17 Unknown Rx levoFLOXacin [Levaquin] 750 mg PO QDAY #5 tablet 07/19/17 Unknown Rx metFORMIN [Glucophage] 500 mg PO BIDDIAB tablet 07/19/17 Unknown Rx HYDROcodone/APAP 5-325 [[place] 1 - 2 each PO Q6HR PRN #30 tablet 08/12/18 Unknown Rx 5/325] Ibuprofen [Motrin 800 MG tab] 800 mg PO Q8HR PRN #20 tablet 08/12/18 Unknown Rx ED Review of Systems ROS: Stated complaint: ANKLE PAIN Other details as noted in HPI Constitutional: no symptoms reported Eyes: denies: eye pain ENT: denies: throat pain Respiratory: no symptoms reported Cardiovascular: denies: chest pain Endocrine: no symptoms reported Gastrointestinal: denies: abdominal pain Genitourinary: denies: dysuria Musculoskeletal: arthralgia, myalgia Neurological: denies: headache Physical Exam - Physical Exam Vital Signs: Vital Signs 08/12/18 18:41 Temperature 97.5 F L Pulse Rate 76 Respiratory 16 Rate Blood Pressure 119/72 O2 Sat by Pulse 97 Oximetry Physical Exam: GENERAL: The patient is well-developed well-nourished male lying on stretcher sleeping at appearing to be in acute distress. [] HEENT: Normocephalic. Atraumatic. Extraocular motions are intact. Patient has moist mucous membranes. NECK: Supple. Trachea midline CHEST/LUNGS: Clear to auscultation. There is no respiratory distress noted. HEART/CARDIOVASCULAR: Regular. There is no tachycardia. There is no gallop rub or murmur. ABDOMEN: Abdomen is soft, nontender. Patient has normal bowel sounds. There is no abdominal distention. SKIN: There is no rash. There is no edema. There is no diaphoresis. No lacerations seen NEURO: The patient is awake, alert, and oriented. The patient is cooperative. The patient has normal speech MUSCULOSKELETAL: Mild tenderness to the distal portion of the anterior left montero. ED Course Vital Signs 08/12/18 18:41 Temperature 97.5 F L Pulse Rate 76 Respiratory 16 Rate Blood Pressure 119/72 O2 Sat by Pulse 97 Oximetry ED Medical Decision Making - Radiology Data Radiology results: image reviewed (left ankle x-ray, left knee x-ray) interpreted by me: Left ankle [id number] tibia fracture Left knee x-ray-no acute fracture. Hardware in place [facility] [address] [place] [address] XRay Report Signed Patient: JAGRUTI THOMAS MR#: [id number] : 1950 Acct:[id number] Age/Sex: 68 / M ADM Date: 08/12/18 Loc: ED Attending Dr: Ordering Physician: CAROL CURRIE MD Date of Service: 08/12/18 Procedure(s): XR ankle 3+V LT Accession Number(s): [id number] cc: CAROL CURRIE MD Fluoro Time In Minutes: FINAL REPORT EXAM: XR ANKLE 3+V LT HISTORY: obvious swelling, pain, injury TECHNIQUE: Left ankle two views PRIORS: None. FINDINGS: Skeletal structures are markedly osteopenic. There is complex minimally displaced fracture through the distal tibia metadiaphysis. Tip of the lateral malleolus is not included in the field of view. Additional views is suggested. Noted is diffuse soft tissue edema IMPRESSION: Acute fracture of the distal tibial metadiaphysis with minimal displacement Marked osteopenia The lateral malleolus is incompletely included on the AP view. Suggest additional AP and oblique views for better visualization. Transcribed By: SAMSON Dictated By: PATY KIM MD Electronically Authenticated By: PATY KIM MD Signed Date/Time: 08/12/182035 DD/ 33 TD/TT: 08/12/182033 - Differential Diagnosis ankle fracture, ankle contusion Critical care attestation.: If time is entered above; I have spent that time in minutes in the direct care of this critically ill patient, excluding procedure time. ED Disposition Clinical Impression: Fracture of distal end of tibia Disposition: - TO HOME OR SELFCARE Is pt being admited?: No Does the pt Need Aspirin: No Condition: Stable Instructions: Leg Fracture (ED) Additional Instructions: Return to the emergency department immediately should you develop worsening symptoms, fever, inability to tolerate food or liquid or any other concerns. Prescriptions: HYDROcodone/APAP 5-325 [[place] 5/325] 1 - 2 each PO Q6HR PRN #30 tablet PRN Reason: Pain Ibuprofen [Motrin 800 MG tab] 800 mg PO Q8HR PRN #20 tablet PRN Reason: Pain, Moderate (4-6) Referrals: MOO MORILLO [Primary Care Provider] - 3-5 Days JOSE MOORE MD [Staff Physician] - 3-5 Days (Dr. Moore is an orthopedic surgeon. Please follow up with him for further evaluation) Time of Disposition: 21:57
--- NOTE | 2018-08-12 20:36 | XRay Report ---
FINAL REPORT EXAM: XR ANKLE 3+V LT HISTORY: obvious swelling, pain, injury TECHNIQUE: Left ankle two views PRIORS: None. FINDINGS: Skeletal structures are markedly osteopenic. There is complex minimally displaced fracture through the distal tibia metadiaphysis. Tip of the late ral malleolus is not included in the field of view. Additional views is suggested. Noted is diffuse soft tissue edema IMPRESSION: Acute fracture of the distal tibial metadiaphysis with minimal displacement Marked osteopenia The lateral malleolus is incompletely included on the AP view. Suggest additional AP and oblique view s for better visualization.
[2018-08-12] MEDS ORDERED: TORADOL IM ONE (22:35)
[2018-08-12] MEDS ORDERED: TORADOL ONE (22:38)
--- NOTE | 2018-08-12 22:50 | XRay Report ---
FINAL REPORT EXAM: XR KNEE 3V LT HISTORY: pain after getting leg caught in an elevator door TECHNIQUE: Two views of the left knee cross-table PRIORS: None. FINDINGS: Positioning is suboptimal. Skeletal structures are osteopenic. There is a total knee prosthesis prese nt. There is subcutaneous soft tissue edema noted. There is suggestion of small joint effusion. IMPRESSION: Total knee prosthesis Possible small joint effusion Osteopenia Subcutaneous edema Limited exam due to positioning
[2018-08-13 03:16] VITALS: BP 122/68
== END 2018-08-13 00:40 | disposition home or self-care (01) ==
LOC: ED 18:29
DX: S82.832A Other fracture of upper and lower end of left fibula, initial encounter for closed fracture (principal); I11.0 Hypertensive heart disease with heart failure; I50.9 Heart failure, unspecified; M19.90 Unspecified osteoarthritis, unspecified site; J45.909 Unspecified asthma, uncomplicated; F31.9 Bipolar disorder, unspecified; F32.9 Major depressive disorder, single episode, unspecified; W22.8XXA Striking against or struck by other objects, initial encounter; Y93.89 Activity, other specified; Y92.89 Other specified places as the place of occurrence of the external cause; Y99.8 Other external cause status
CPT/HCPCS: 73562; 73610; 96372; 99284; J1885

== ENCOUNTER 2018-08-30 14:08 | Inpatient (IN) | payer MEDICARE ==
[2018-08-30] MEDS ORDERED: NACL 0.9% 1000 ML 1,000 ML IV ONE ×2 (16:30→17:42)
[2018-08-30] MEDS ORDERED: NARCAN 2 MG/2 ML IV ONE (16:30)
[2018-08-30] MEDS ORDERED: NACL 0.9% 1000 ML 1,000 ML ONE ×2 (16:30→16:34)
[2018-08-30] MEDS ORDERED: NARCAN 2 MG/2 ML ONE (16:34)
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
[2018-08-30] MEDS ORDERED: ZOFRAN ONE (16:37)
[2018-08-30] MEDS ORDERED: ZOFRAN IV ONE (16:42)
[2018-08-30 17:03] LABS: Basophils % (Auto) 0.4 % (0.0-1.8); Eosinophils # (Auto) 0.1 K/mm3 (0.0-0.4); Eosinophils % (Auto) 1.3 % (0.0-4.3); Hematocrit 32.3 % (35.5-45.6); Hemoglobin 10.4 gm/dl (11.8-15.2); Lymphocytes # (Auto) 2.3 K/mm3 (1.2-5.4); Lymphocytes % (Auto) 37.6 % (13.4-35.0); Mean Corpuscular HGB Conc 32 % (32-34); Mean Corpuscular Volume 78 fl (84-94); Monocytes # (Auto) 0.4 K/mm3 (0.0-0.8); Monocytes % (Auto) 6.1 % (0.0-7.3); Platelet Count 115 K/mm3 (140-440); Red Blood Count 4.14 M/mm3 (3.65-5.03); Red Cell Distribution Width 16.2 % (13.2-15.2)
[2018-08-30 17:15] LABS: INR 1.35 (0.87-1.13)
[2018-08-30 17:16] LABS: Partial Thromboplastin Time 38.8 Sec. (24.2-36.6)
[2018-08-30 17:23] LABS: Alanine Aminotransferase 14 units/L (7-56); Albumin 3.1 g/dL (3.9-5); BUN/Creatinine Ratio 23; Blood Urea Nitrogen 34 mg/dL (9-20); Hemolysis Index 0
[2018-08-30 17:30] LABS: Bilirubin,Direct < 0.2 mg/dL (0-0.2)
[2018-08-30] MEDS ORDERED: LEVAQUIN 500MG/100ML 500 MG/100 ML BAG IV ONE (17:50)
[2018-08-30] MEDS ORDERED: NACL 0.9% 1000 ML IV ONE (17:51)
[2018-08-30 18:35] LABS: Bilirubin,Urine NEG (Negative); Blood,Urine NEG (Negative); Color,Urine Yellow (Yellow); Mucus,Urine FEW /HPF; Protein,Urine <15 mg/dL mg/dL (Negative); Urobilinogen,Urine < 2.0 mg/dL (<2.0); WBC,Urine < 1.0 /HPF (0.0-6.0)
[2018-08-30 18:44] LABS: Amphetamine Screen,Urine PRESUMPTIVE NEGATIVE; Benzodiazepines Screen,Urine PRESUMPTIVE NEGATIVE; Cannabinoid Screen,Urine PRESUMPTIVE NEGATIVE; Cocaine Screen,Urine PRESUMPTIVE NEGATIVE; Methadone Screen,Urine PRESUMPTIVE NEGATIVE
[2018-08-30 19:01] LABS: Opiate Screen,Urine PRESUMPTIVE POSITIVE
--- NOTE | 2018-08-30 19:02 | XRay Report ---
PROCEDURES: XR CHEST 1V AP TECHNIQUE: AP portable view of the chest. HISTORY: AMS COMPARISON: None FINDINGS: Lines, tubes, and devices: N/A Lungs and pleura: Trachea is normal in position. Lungs are clear of infiltrate, pleural effusion, vas cular congestion, or pneumothorax. Cardiomediastinal silhouette: Cardiac size is normal. Calcification of the aortic arch is noted. Other: Bony structures are intact. IMPRESSION: No acute cardiopulmonary process seen. This document is electronically signed by Nicci Marie MD., August 30 2018 07:00:03 PM ET
[2018-08-30 19:07] LABS: Albumin 3.8 g/dL (3.9-5)
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
[2018-08-30] MEDS ORDERED: ZOFRAN IV PRN (19:21)
[2018-08-30] MEDS ORDERED: PROVENTIL IH PRN (19:21)
[2018-08-30] MEDS ORDERED: SODIUM CHLORIDE FLUSH SYRINGE 10 ML IV PRN (19:21)
--- NOTE | 2018-08-30 20:12 | Cat Scan Report ---
PROCEDURE: CT HEAD/BRAIN WO CON TECHNIQUE: Computerized tomography of the head was performed without contrast material. Imaging was obtained in axial increments. Sagittal and coronal reconstruction was also obtained. CT DOSE LENGTH PRODUCT: 1078.78 mGycm HISTORY: Altered Mental Status COMPARISONS: None . FINDINGS: The ventricular system is normal in size and configuration. There is no evidence for parenchymal volu me loss. There is no evidence for mass lesion, mass effect, midline shift, acute intracranial hemorrhage, or a cute ischemia/ infarction. No evidence for acute skull fracture is seen. No abnormality in the overlying scalp soft tissues is s een. Visualized paranasal sinuses are clear. IMPRESSION: No acute intracranial process noted. This document is electronically signed by Nicci Marie MD., August 30 2018 08:10:18 PM ET
[2018-08-30] MEDS ORDERED: BUMETANIDE 1 MG PO SCH (22:00)
[2018-08-30] MEDS ORDERED: PHENYTOIN 300 MG PO SCH (22:00)
[2018-08-30] MEDS ORDERED: NON-FORMULARY (Carvedilol 25 MG) PO SCH (22:00)
[2018-08-30] MEDS ORDERED: NON-FORMULARY (Famotidine 20 MG) PO SCH (22:00)
[2018-08-30] MEDS ORDERED: DONEPEZIL 5 MG PO SCH (22:00)
[2018-08-30] MEDS: COREG PO SCH (23:01)
[2018-08-30] MEDS: DILANTIN PO SCH (23:02)
[2018-08-30] MEDS: LYRICA PO SCH (23:03)
[2018-08-30] MEDS: ARICEPT PO SCH (23:03)
[2018-08-30] MEDS: NORCO 5/325 PO PRN (23:03)
[2018-08-30] MEDS: KEPPRA PO SCH (23:04)
[2018-08-30] MEDS: ZESTRIL PO SCH (23:05)
[2018-08-30] MEDS: PEPCID PO SCH (23:05)
[2018-08-30] MEDS: SODIUM CHLORIDE FLUSH SYRINGE 10 ML IV SCH (23:06)
[2018-08-31] MEDS ORDERED: NACL 0.9% 250ML 250 ML IV ONE ×2 (04:45→06:17)
[2018-08-31] MEDS ORDERED: LASIX IV SCH (06:00)
[2018-08-31 07:24] LABS: Basophils % (Auto) 0.3 % (0.0-1.8); Eosinophils # (Auto) 0.1 K/mm3 (0.0-0.4); Eosinophils % (Auto) 1.8 % (0.0-4.3); Hematocrit 32.1 % (35.5-45.6); Lymphocytes % (Auto) 41.1 % (13.4-35.0); Mean Corpuscular HGB Conc 31 % (32-34); Mean Corpuscular Volume 78 fl (84-94); Monocytes # (Auto) 0.4 K/mm3 (0.0-0.8); Monocytes % (Auto) 8.7 % (0.0-7.3); Platelet Count 122 K/mm3 (140-440); Red Blood Count 4.09 M/mm3 (3.65-5.03); Red Cell Distribution Width 16.4 % (13.2-15.2)
[2018-08-31 07:51] LABS: Calcium 9.7 mg/dL (8.4-10.2)
[2018-08-31] MEDS ORDERED: COZAAR PO SCH (10:00)
[2018-08-31] MEDS ORDERED: ALDACTONE PO SCH (10:00)
[2018-08-31] MEDS ORDERED: NON-FORMULARY (Spironolactone 25 MG) PO SCH (10:00)
[2018-08-31] MEDS ORDERED: NON-FORMULARY (Prednisone 5 MG) PO SCH (10:00)
[2018-08-31] MEDS ORDERED: NON-FORMULARY (Losartan 25 MG) PO SCH (10:00)
--- NOTE | 2018-08-31 11:35 | Consultation ---
History of Present Illness Consult date: 08/31/18 Requesting physician: NAIMA GODOY Consult reason: atrial fibrillation History of present illness: The patient was brought to the ER with complaint of lethargy and altered sensorium. He was also noted to be hypotensive with RLL infiltrate on CXR. He is awake and alert today. He denies CP, dyspnea, palpitations or dizziness. He recently suffered L ankle fracture which is in a cast. He has permanent AF with EF of 60-65% in 11/05. Past History Past Medical History: atrial fib (permanent), diabetes, seizures, other (Chronic pain syndrome, Schizophrenia, Bipolar DO) Past Surgical History: Other (R BKA) Social history: single. denies: smoking, alcohol abuse Family history: denies: CAD Medications and Allergies Allergies Allergy/AdvReac Type Severity Reaction Status Date / Time Penicillins Allergy Unknown Verified 07/16/17 17:29 Home Medications Medication Instructions Recorded Confirmed Last Taken Type Atorvastatin Calcium 10 mg PO DAILY 08/30/18 08/30/18 08/30/18 History Baclofen [Lioresal] 10 mg PO BID 08/30/18 08/30/18 08/30/18 History Bumetanide [Bumex 1 mg tab] 2 mg PO DAILY 08/30/18 08/30/18 08/30/18 History Carvedilol [Coreg] 25 mg PO BID 08/30/18 08/30/18 08/30/18 History Docusate Sodium [Colace] 100 mg PO BID PRN 08/30/18 08/30/18 08/30/18 History Ergocalciferol [Vitamin D2] 1 cap PO QWEEK 08/30/18 08/30/18 08/30/18 History Lactulose [Cephulac] 20 gm PO QDAY 08/30/18 08/30/18 08/30/18 History Metformin HCl [Glucophage Xr] 500 mg PO BID 08/30/18 08/30/18 08/30/18 History Morphine Sulfate [Morphine Sulfate 60 mg PO BID 08/30/18 08/30/18 08/30/18 History ER] Omeprazole 20 mg PO DAILY 08/30/18 08/30/18 08/30/18 History Oxycodone HCl [Roxicodone] 30 mg PO Q4HR PRN 0308/30/18 08/30/18 History Phenytoin Sodium Extended 200 mg PO Q8HR 08/30/18 08/30/18 08/30/18 History [Dilantin] Pregabalin [Lyrica] 200 mg PO BID 08/30/18 08/30/18 08/30/18 History Rivaroxaban [Xarelto Starter Pack] 20 each PO DAILY 08/30/18 08/30/18 08/30/18 History Venlafaxine [Effexor 37.5mg tab] 37.5 mg PO DAILY 08/30/18 08/30/18 08/30/18 History levETIRAcetam [Keppra] 1,000 mg PO BID 08/30/18 08/30/18 08/30/18 History metOLazone [Zaroxolyn] 2.5 mg PO 3XW 08/30/18 08/30/18 08/30/18 History predniSONE [Prednisone] 5 mg PO DAILY 08/30/18 08/30/18 08/30/18 History Active Meds: Active Medications Acetaminophen (Tylenol) 650 mg PO Q4H PRN PRN Reason: Pain MILD(1-3)/Fever >100.5/[place] Acetaminophen/Hydrocodone Bitart ([place] 5/325) 1 each PO Q6H PRN PRN Reason: Pain, Moderate (4-6) Last Admin: 08/30/18 23:03 Dose: 1 each Documented by: Albuterol (Proventil) 2.5 mg IH Q4HRT PRN PRN Reason: Shortness Of Breath Carvedilol (Coreg) 25 mg PO Q12HR [facility] Last Admin: 08/30/18 23:01 Dose: 25 mg Documented by: Donepezil HCl (Aricept) 5 mg PO QHS [facility] Last Admin: 08/30/18 23:03 Dose: 5 mg Documented by: Famotidine (Pepcid) 20 mg PO BID [facility] Last Admin: 08/30/18 23:05 Dose: 20 mg Documented by: Furosemide (Lasix) 20 mg IV DAILY@0600 [facility] Last Admin: 08/31/18 05:10 Dose: Not Given Documented by: Levofloxacin/Dextrose (Levaquin 750mg/150ml) 750 mg in 150 mls @ 100 mls/hr IV Q24HR [facility]; Protocol Ibuprofen (Motrin) 800 mg PO Q8HR PRN PRN Reason: Pain, Moderate (4-6) Levetiracetam (Keppra) 1,000 mg PO BID [facility] Last Admin: 08/30/18 23:04 Dose: 1,000 mg Documented by: Lisinopril (Zestril) 40 mg PO BID [facility] Last Admin: 08/30/18 23:05 Dose: 40 mg Documented by: Losartan Potassium (Cozaar) 25 mg PO QDAY [facility] Ondansetron HCl (Zofran) 4 mg IV Q8H PRN PRN Reason: Nausea And Vomiting Phenytoin (Dilantin) 300 mg PO BID [facility] Last Admin: 08/30/18 23:02 Dose: 300 mg Documented by: Prednisone (Deltasone) 5 mg PO QDAY [facility] Pregabalin (Lyrica) 150 mg PO BID [facility] Last Admin: 08/30/18 23:03 Dose: 150 mg Documented by: Rivaroxaban (Xarelto) 20 mg PO DAILY [facility]; Protocol Sodium Chloride (Sodium Chloride Flush Syringe 10 Ml) 10 ml IV BID [facility] Last Admin: 08/30/18 23:06 Dose: 10 ml Documented by: Sodium Chloride (Sodium Chloride Flush Syringe 10 Ml) 10 ml IV PRN PRN PRN Reason: LINE FLUSH Spironolactone (Aldactone) 25 mg PO QDAY [facility] Review of Systems Constitutional: no fever, no chills Ears, nose, mouth and throat: no ear pain, no ear discharge, no sore throat Cardiovascular: no chest pain, no palpitations, no lightheadedness, no shortness of breath Respiratory: no cough, no hemoptysis Gastrointestinal: no abdominal pain, no nausea, no vomiting, no diarrhea Genitourinary Male: no dysuria, no urinary frequency Rectal: no pain, no bleeding Musculoskeletal: other (AKA stump - chronic pain), no neck stiffness, no neck pain Integumentary: no rash, no pruritis Neurological: no weakness, no numbness, no headaches Endocrine: no cold intolerance, no heat intolerance Hematologic/Lymphatic: no easy bruising, no easy bleeding Allergic/Immunologic: no urticaria, no wheezing Physical Examination Vital Signs Last Vital Signs Temp 98.4 F 08/31/18 04:39 Pulse 55 L 08/31/18 09:52 Resp 20 08/31/18 04:39 BP 82/45 08/31/18 09:52 Pulse Ox 99 08/31/18 09:52 General appearance: no acute distress HEENT: Positive: EOMI, Normocephaly, Mucus Membranes Moist Neck: Positive: neck supple, trachea midline Cardiac: Positive: Reg Rate and Rhythm, irregularly irregular, S1/S2 Lungs: Positive: clear to auscultation Neuro: Positive: Grossly Intact Abdomen: Positive: Soft, Active Bowel Sounds. Negative: Tender Skin: Positive: Clear. Negative: Rash Musculoskeletal: other (Left foot and leg in cast. s/p R AKA) Extremities: Absent: edema Results 08/31/18 06:53 08/31/18 06:53 Cardiac Enzymes 08/30/18 08/30/18 Range/Units 16:39 18:08 AST 17 18 (5-40) units/L Coagulation 08/30/18 Range/Units 16:39 PT 17.5 H (12.2-14.9) Sec. INR 1.35 H (0.87-1.13) APTT 38.8 H (24.2-36.6) Sec. CBC 08/30/18 08/31/18 Range/Units 16:39 06:53 WBC 6.0 5.0 (4.5-11.0) K/mm3 RBC 4.14 4.09 (3.65-5.03) M/mm3 Hgb 10.4 L 10.0 L (11.8-15.2) gm/dl Hct 32.3 L 32.1 L (35.5-45.6) % Plt Count 115 L 122 L (140-440) K/mm3 Lymph # 2.3 2.0 (1.2-5.4) K/mm3 [place] # 0.4 0.4 (0.0-0.8) K/mm3 Eos # 0.1 0.1 (0.0-0.4) K/mm3 Baso # 0.0 0.0 (0.0-0.1) K/mm3 Comprehensive Metabolic Panel 08/30/18 08/30/18 08/31/18 Range/Units 16:39 18:08 06:53 Sodium 143 145 148 H (137-145) mmol/L Potassium 3.5 L 3.7 3.5 L (3.6-5.0) mmol/L Chloride 104.9 105.1 106.7 (98-107) mmol/L Carbon Dioxide 33 H 31 H 30 (22-30) mmol/L BUN 34 H 35 H 33 H (9-20) mg/dL Creatinine 1.5 1.5 1.5 (0.8-1.5) mg/dL Glucose 90 98 74 L (75-100) mg/dL Calcium 10.0 10.0 9.7 (8.4-10.2) mg/dL Direct Bilirubin < 0.2 (0-0.2) mg/dL Indirect Bilirubin 0.0 mg/dL AST 17 18 (5-40) units/L ALT 14 15 (7-56) units/L Alkaline Phosphatase 66 76 (35-129) units/L Total Protein 6.3 6.5 (6.3-8.2) g/dL Albumin 3.1 L 3.8 L (3.9-5) g/dL - Imaging and Cardiology EKG: image reviewed EKG interpretations - Telemetry EKG Rhythm: Atrial Fibrillation - EKG Supraventricular dysrhythmia: atrial fibrillation AV and intraventricular conduction: right bundle branch block Assessment and Plan Hold Coreg for now until BP improves adequately. DC all BP meds and diurectics while patient is hypotensive. - Patient Problems (1) Sepsis Current Visit: Yes Status: Acute (2) Sepsis associated hypotension Current Visit: Yes Status: Acute (3) Permanent atrial fibrillation Current Visit: Yes Status: Chronic (4) Acute kidney injury Current Visit: Yes Status: Acute (5) Pneumonia Current Visit: Yes Status: Acute Qualifiers: Pneumonia type: due to unspecified organism (6) H/O: hypertension Current Visit: Yes Status: Chronic (7) Morbid obesity Current Visit: Yes Status: Chronic (8) H/O schizophrenia Current Visit: Yes Status: Chronic (9) H/O bipolar disorder Current Visit: Yes Status: Chronic
[2018-08-31] MEDS: LEVAQUIN 750MG/150ML 750 MG/150 ML BAG IV SCH (11:39)
[2018-08-31] MEDS: LYRICA PO SCH ×2 (11:40→22:13)
[2018-08-31] MEDS: DILANTIN PO SCH ×2 (11:41→22:13)
[2018-08-31] MEDS: PEPCID PO SCH ×2 (11:41→22:13)
[2018-08-31] MEDS: XARELTO PO SCH (11:42)
[2018-08-31] MEDS: DELTASONE PO SCH (11:42)
[2018-08-31] MEDS: KEPPRA PO SCH ×2 (11:42→22:13)
[2018-08-31] MEDS: SODIUM CHLORIDE FLUSH SYRINGE 10 ML IV SCH ×2 (11:43→22:14)
[2018-08-31] MEDS: COREG PO SCH (11:46)
[2018-08-31] MEDS: ZESTRIL PO SCH (11:47)
--- NOTE | 2018-08-31 12:19 | Progress Note ---
Assessment and Plan Assessment and plan: Systemic inflammatory response syndrome IV antibiotic therapy, IVF resuscitation as clinically indicated Hypotension Hold meds for now. hold Coreg Seizure disorder Resume meds Schizophrenia History of Hypertension Monitor BP, continue medical management. Diabetes Mellitus type 2 Fingerstick q ac and hs Consistent carb diet Gastroesophageal reflux disease) PPI therapy, Atrial fibrillation Resume xarelto Chronic pain. Hold meds for now because hypotension DVT prophylaxis SALUD will monitor History Interval history: confused generalized weakness Hospitalist Physical - Physical exam Narrative exam: GEN: Not in acute distress, lying in bed, morbidly obese HEENT: Normocephalic, atraumatic, Neck: supple, No JVD Lungs: Clear to auscultation bilat, no crackles, no wheeze Abd:soft, non tender, non distended, normal bowel sounds Ext: No edema, no clubbing, no cyanosis Neuro:Awake,alert, mild confusion, no focal signs Skin:No rash - Constitutional Vitals: Temp Pulse Resp BP Pulse Ox 98.4 F 65 20 82/45 99 08/31/18 04:39 08/31/18 11:47 08/31/18 04:39 08/31/18 09:52 08/31/18 09:52 Results - Labs CBC & Chem 7: 09/01/18 06:50 09/01/18 06:50 Labs: Laboratory Last Values WBC 5.0 K/mm3 (4.5-11.0) 08/31/18 06:53 RBC 4.09 M/mm3 (3.65-5.03) 08/31/18 06:53 Hgb 10.0 gm/dl (11.8-15.2) L 08/31/18 06:53 Hct 32.1 % (35.5-45.6) L 08/31/18 06:53 MCV 78 fl (84-94) L 08/31/18 06:53 MCH 24 pg (28-32) L 08/31/18 06:53 MCHC 31 % (32-34) L 08/31/18 06:53 RDW 16.4 % (13.2-15.2) H 08/31/18 06:53 Plt Count 122 K/mm3 (140-440) L 08/31/18 06:53 Lymph % (Auto) 41.1 % (13.4-35.0) H 08/31/18 06:53 [place] % (Auto) 8.7 % (0.0-7.3) H 08/31/18 06:53 Eos % (Auto) 1.8 % (0.0-4.3) 08/31/18 06:53 Baso % (Auto) 0.3 % (0.0-1.8) 08/31/18 06:53 Lymph # 2.0 K/mm3 (1.2-5.4) 08/31/18 06:53 [place] # 0.4 K/mm3 (0.0-0.8) 08/31/18 06:53 Eos # 0.1 K/mm3 (0.0-0.4) 08/31/18 06:53 Baso # 0.0 K/mm3 (0.0-0.1) 08/31/18 06:53 Seg Neutrophils % 48.1 % (40.0-70.0) 08/31/18 06:53 Seg Neutrophils # 2.4 K/mm3 (1.8-7.7) 08/31/18 06:53 PT 17.5 Sec. (12.2-14.9) H 08/30/18 16:39 INR 1.35 (0.87-1.13) H 08/30/18 16:39 APTT 38.8 Sec. (24.2-36.6) H 08/30/18 16:39 D-Dimer 254.74 ng/mlDDU (0-234) H 08/30/18 16:39 Sodium 148 mmol/L (137-145) H 08/31/18 06:53 Potassium 3.5 mmol/L (3.6-5.0) L 08/31/18 06:53 Chloride 106.7 mmol/L (98-107) 08/31/18 06:53 Carbon Dioxide 30 mmol/L (22-30) 08/31/18 06:53 Anion Gap 15 mmol/L 08/31/18 06:53 BUN 33 mg/dL (9-20) H 08/31/18 06:53 Creatinine 1.5 mg/dL (0.8-1.5) 08/31/18 06:53 Estimated GFR 57 ml/min 08/31/18 06:53 BUN/Creatinine Ratio 22 % 08/31/18 06:53 Glucose 74 mg/dL (75-100) L 08/31/18 06:53 Lactic Acid 1.70 mmol/L (0.7-2.0) 08/30/18 20:45 Calcium 9.7 mg/dL (8.4-10.2) 08/31/18 06:53 Total Bilirubin 0.30 mg/dL (0.1-1.2) 08/30/18 18:08 Direct Bilirubin < 0.2 mg/dL (0-0.2) 08/30/18 16:39 Indirect Bilirubin 0.0 mg/dL 08/30/18 16:39 AST 18 units/L (5-40) 08/30/18 18:08 ALT 15 units/L (7-56) 08/30/18 18:08 Alkaline Phosphatase 76 units/L (35-129) 08/30/18 18:08 Ammonia 51.0 umol/L (25-60) 08/31/18 09:27 Troponin T 0.024 ng/mL (0.00-0.029) 08/30/18 18:08 NT-Pro-B Natriuret Pep 504.7 pg/mL (0-900) 08/30/18 19:23 Total Protein 6.5 g/dL (6.3-8.2) 08/30/18 18:08 Albumin 3.8 g/dL (3.9-5) L 08/30/18 18:08 Albumin/Globulin Ratio 1.4 % 08/30/18 18:08 Urine Color Yellow (Yellow) 08/30/18 17:41 Urine Turbidity Clear (Clear) 08/30/18 17:41 Urine pH 5.0 (5.0-7.0) 08/30/18 17:41 Ur Specific [place] 1.010 (1.003-1.030) 08/30/18 17:41 Urine Protein <15 mg/dl mg/dL (Negative) 08/30/18 17:41 Urine Glucose (UA) Neg mg/dL (Negative) 08/30/18 17:41 Urine Ketones Neg mg/dL (Negative) 08/30/18 17:41 Urine Blood Neg (Negative) 08/30/18 17:41 Urine Nitrite Neg (Negative) 08/30/18 17:41 Urine Bilirubin Neg (Negative) 08/30/18 17:41 Urine Urobilinogen < 2.0 mg/dL (<2.0) 08/30/18 17:41 Ur Leukocyte Esterase Neg (Negative) 08/30/18 17:41 Urine WBC (Auto) < 1.0 /HPF (0.0-6.0) 08/30/18 17:41 Urine RBC (Auto) 0.0 /HPF (0.0-6.0) 08/30/18 17:41 U Epithel Cells (Auto) < 1.0 /HPF (0-13.0) 08/30/18 17:41 Urine Mucus Few /HPF 08/30/18 17:41 Salicylates < 0.3 mg/dL (2.8-20.0) L 08/30/18 16:39 Urine Opiates Screen Presumptive positive 08/30/18 17:42 Urine Methadone Screen Presumptive negative 08/30/18 17:42 Acetaminophen < 5.0 ug/mL (10.0-30.0) L 08/30/18 16:39 Ur Barbiturates Screen Presumptive negative 08/30/18 17:42 Ur Phencyclidine Scrn Presumptive negative 08/30/18 17:42 Ur Amphetamines Screen Presumptive negative 08/30/18 17:42 U Benzodiazepines Scrn Presumptive negative 08/30/18 17:42 Urine Cocaine Screen Presumptive negative 08/30/18 17:42 U Marijuana (THC) Screen Presumptive negative 08/30/18 17:42 Drugs of Abuse Note Disclamer 08/30/18 17:42
[2018-08-31] MEDS: IBUPROFEN PO PRN (18:50)
[2018-08-31] MEDS: ARICEPT PO SCH (22:13)
[2018-09-01] MEDS: NORCO 5/325 PO PRN ×3 (05:28→23:15)
[2018-09-01 08:04] LABS: Hematocrit 31.7 % (35.5-45.6); Hemoglobin 10.1 gm/dl (11.8-15.2); Mean Corpuscular HGB Conc 32 % (32-34); Mean Corpuscular Volume 78 fl (84-94); Platelet Count 100 K/mm3 (140-440); Red Blood Count 4.05 M/mm3 (3.65-5.03); Red Cell Distribution Width 15.9 % (13.2-15.2)
[2018-09-01 08:26] LABS: Calcium 9.3 mg/dL (8.4-10.2)
[2018-09-01] MEDS ORDERED: COLACE PO PRN (08:38)
[2018-09-01] MEDS: LEVAQUIN 750MG/150ML 750 MG/150 ML BAG IV SCH (09:35)
[2018-09-01] MEDS: LYRICA PO SCH ×2 (09:36→21:33)
[2018-09-01] MEDS: DELTASONE PO SCH (09:36)
[2018-09-01] MEDS: PEPCID PO SCH ×2 (09:36→21:32)
[2018-09-01] MEDS: DILANTIN PO SCH ×3 (09:36→21:32)
[2018-09-01] MEDS: KEPPRA PO SCH ×2 (09:37→21:32)
[2018-09-01] MEDS: XARELTO PO SCH (09:37)
[2018-09-01] MEDS: IBUPROFEN PO PRN (09:38)
[2018-09-01] MEDS ORDERED: NON-FORMULARY (Omeprazole [Omeprazole] 20 MG) PO SCH (10:00)
[2018-09-01] MEDS ORDERED: KEPPRA PO SCH (10:00)
[2018-09-01] MEDS ORDERED: RIVAROXABAN PO SCH (10:00)
[2018-09-01] MEDS ORDERED: NACL 0.45% 500 ML IV SCH (10:00)
[2018-09-01] MEDS ORDERED: ZAROXOLYN PO SCH (10:00)
[2018-09-01] MEDS: SODIUM CHLORIDE FLUSH SYRINGE 10 ML IV SCH ×2 (11:20→21:41)
[2018-09-01] MEDS: CEPHULAC PO SCH (11:21)
[2018-09-01] MEDS: PROTONIX PO SCH (11:24)
[2018-09-01] MEDS: LIORESAL PO SCH ×2 (11:31→21:32)
[2018-09-01] MEDS ORDERED: DELTASONE PO SCH (12:00)
--- NOTE | 2018-09-01 12:11 | Progress Note ---
Assessment and Plan Cont present cardiac management. The patient has been seen in conjunction with Dr. Salguero who agrees with the assessment and plan of care. - Patient Problems (1) Sepsis Current Visit: Yes Status: Acute (2) Sepsis associated hypotension Current Visit: Yes Status: Acute (3) Permanent atrial fibrillation Current Visit: Yes Status: Chronic (4) Acute kidney injury Current Visit: Yes Status: Acute (5) Pneumonia Current Visit: Yes Status: Acute Qualifiers: Pneumonia type: due to unspecified organism (6) H/O: hypertension Current Visit: Yes Status: Chronic (7) Morbid obesity Current Visit: Yes Status: Chronic (8) H/O schizophrenia Current Visit: Yes Status: Chronic (9) H/O bipolar disorder Current Visit: Yes Status: Chronic Subjective Date of service: 09/01/18 Principal diagnosis: AFib Interval history: pt resting in bed, states he is feeling a little better. in AFib with CVR on telemetry. Objective Last Vital Signs Temp 97.3 F L 09/01/18 11:46 Pulse 60 09/01/18 11:45 Resp 18 09/01/18 11:45 BP 111/81 09/01/18 11:45 Pulse Ox 95 09/01/18 11:45 - Physical Examination HEENT: Positive: EOMI, Normocephaly, Mucus Membranes Moist Neck: Positive: neck supple, trachea midline Cardiac: Positive: irregularly irregular, S1/S2 Lungs: Positive: Decreased Breath Sounds Neuro: Positive: Grossly Intact Abdomen: Positive: Soft, Active Bowel Sounds. Negative: Tender Skin: Positive: Clear. Negative: Rash Musculoskeletal: other (Left foot and leg in cast. s/p R AKA) Extremities: Absent: edema - Labs and Meds CBC 09/01/18 Range/Units 06:50 WBC 4.9 (4.5-11.0) K/mm3 RBC 4.05 (3.65-5.03) M/mm3 Hgb 10.1 L (11.8-15.2) gm/dl Hct 31.7 L (35.5-45.6) % Plt Count 100 L (140-440) K/mm3 Comprehensive Metabolic Panel 09/01/18 Range/Units 06:50 Sodium 148 H (137-145) mmol/L Potassium 3.3 L (3.6-5.0) mmol/L Chloride 109.2 H (98-107) mmol/L Carbon Dioxide 32 H (22-30) mmol/L BUN 43 H (9-20) mg/dL Creatinine 1.8 H (0.8-1.5) mg/dL Glucose 131 H (75-100) mg/dL Calcium 9.3 (8.4-10.2) mg/dL - Imaging and Cardiology EKG: image reviewed - Telemetry EKG Rhythm: Atrial Fibrillation AV and intraventricular conduction: right bundle branch block
--- NOTE | 2018-09-01 14:40 | Progress Note ---
Assessment and Plan Assessment and plan: ?Systemic inflammatory response syndrome to r/o sepsis Cont IV antibiotic therapy, IVF resuscitation as clinically indicated Consult ID Bacteremia Gram variable rods and Gram Pos cocci in pairs ??contamination vs infection Repeat blood cultures Consult ID Discussed with ID Physician Hypotension Hold meds for now. hold Coreg, hold diuretic start iv fluids encephalopathy ammonia normal check TSH Check ABG Seizure disorder Resume meds Schizophrenia History of Hypertension Monitor BP, continue medical management. Diabetes Mellitus type 2 Fingerstick q ac and hs Consistent carb diet Gastroesophageal reflux disease) PPI therapy, Atrial fibrillation Resume xarelto Chronic pain. Hold meds for now because hypotension DVT prophylaxis SALUD worse. Start iv fluids consult Nephrology History Interval history: Less confused generalized weakness no fever Hospitalist Physical - Physical exam Narrative exam: GEN: Not in acute distress, lying in bed, morbidly obese HEENT: Normocephalic, atraumatic, Neck: supple, No JVD Lungs: Clear to auscultation bilat, no crackles, no wheeze Abd:soft, non tender, non distended, normal bowel sounds Ext: Right AKA, no cyanosis Neuro:Awake,alert, mild confusion, oriented to person , place, time, no focal signs Psych:Normal mood - Constitutional Vitals: Temp Pulse Resp BP Pulse Ox 97.3 F L 60 18 111/81 95 09/01/18 11:46 09/01/18 11:45 09/01/18 11:45 09/01/18 11:45 09/01/18 11:45 General appearance: Present: no acute distress Results - Labs CBC & Chem 7: 09/01/18 06:50 09/02/18 04:42 Labs: Laboratory Last Values WBC 4.9 K/mm3 (4.5-11.0) 09/01/18 06:50 RBC 4.05 M/mm3 (3.65-5.03) 09/01/18 06:50 Hgb 10.1 gm/dl (11.8-15.2) L 09/01/18 06:50 Hct 31.7 % (35.5-45.6) L 09/01/18 06:50 MCV 78 fl (84-94) L 09/01/18 06:50 MCH 25 pg (28-32) L 09/01/18 06:50 MCHC 32 % (32-34) 09/01/18 06:50 RDW 15.9 % (13.2-15.2) H 09/01/18 06:50 Plt Count 100 K/mm3 (140-440) L 09/01/18 06:50 Lymph % (Auto) 41.1 % (13.4-35.0) H 08/31/18 06:53 [place] % (Auto) 8.7 % (0.0-7.3) H 08/31/18 06:53 Eos % (Auto) 1.8 % (0.0-4.3) 08/31/18 06:53 Baso % (Auto) 0.3 % (0.0-1.8) 08/31/18 06:53 Lymph # 2.0 K/mm3 (1.2-5.4) 08/31/18 06:53 [place] # 0.4 K/mm3 (0.0-0.8) 08/31/18 06:53 Eos # 0.1 K/mm3 (0.0-0.4) 08/31/18 06:53 Baso # 0.0 K/mm3 (0.0-0.1) 08/31/18 06:53 Seg Neutrophils % 48.1 % (40.0-70.0) 08/31/18 06:53 Seg Neutrophils # 2.4 K/mm3 (1.8-7.7) 08/31/18 06:53 PT 17.5 Sec. (12.2-14.9) H 08/30/18 16:39 INR 1.35 (0.87-1.13) H 08/30/18 16:39 APTT 38.8 Sec. (24.2-36.6) H 08/30/18 16:39 D-Dimer 254.74 ng/mlDDU (0-234) H 08/30/18 16:39 Sodium 148 mmol/L (137-145) H 09/01/18 06:50 Potassium 3.3 mmol/L (3.6-5.0) L 09/01/18 06:50 Chloride 109.2 mmol/L (98-107) H 09/01/18 06:50 Carbon Dioxide 32 mmol/L (22-30) H 09/01/18 06:50 Anion Gap 10 mmol/L 09/01/18 06:50 BUN 43 mg/dL (9-20) H 09/01/18 06:50 Creatinine 1.8 mg/dL (0.8-1.5) H 09/01/18 06:50 Estimated GFR 46 ml/min 09/01/18 06:50 BUN/Creatinine Ratio 24 % 09/01/18 06:50 Glucose 131 mg/dL (75-100) H 09/01/18 06:50 Lactic Acid 1.70 mmol/L (0.7-2.0) 08/30/18 20:45 Calcium 9.3 mg/dL (8.4-10.2) 09/01/18 06:50 Total Bilirubin 0.30 mg/dL (0.1-1.2) 08/30/18 18:08 Direct Bilirubin < 0.2 mg/dL (0-0.2) 08/30/18 16:39 Indirect Bilirubin 0.0 mg/dL 08/30/18 16:39 AST 18 units/L (5-40) 08/30/18 18:08 ALT 15 units/L (7-56) 08/30/18 18:08 Alkaline Phosphatase 76 units/L (35-129) 08/30/18 18:08 Ammonia 51.0 umol/L (25-60) 08/31/18 09:27 Troponin T 0.024 ng/mL (0.00-0.029) 08/30/18 18:08 NT-Pro-B Natriuret Pep 504.7 pg/mL (0-900) 08/30/18 19:23 Total Protein 6.5 g/dL (6.3-8.2) 08/30/18 18:08 Albumin 3.8 g/dL (3.9-5) L 08/30/18 18:08 Albumin/Globulin Ratio 1.4 % 08/30/18 18:08 Urine Color Yellow (Yellow) 08/30/18 17:41 Urine Turbidity Clear (Clear) 08/30/18 17:41 Urine pH 5.0 (5.0-7.0) 08/30/18 17:41 Ur Specific [place] 1.010 (1.003-1.030) 08/30/18 17:41 Urine Protein <15 mg/dl mg/dL (Negative) 08/30/18 17:41 Urine Glucose (UA) Neg mg/dL (Negative) 08/30/18 17:41 Urine Ketones Neg mg/dL (Negative) 08/30/18 17:41 Urine Blood Neg (Negative) 08/30/18 17:41 Urine Nitrite Neg (Negative) 08/30/18 17:41 Urine Bilirubin Neg (Negative) 08/30/18 17:41 Urine Urobilinogen < 2.0 mg/dL (<2.0) 08/30/18 17:41 Ur Leukocyte Esterase Neg (Negative) 08/30/18 17:41 Urine WBC (Auto) < 1.0 /HPF (0.0-6.0) 08/30/18 17:41 Urine RBC (Auto) 0.0 /HPF (0.0-6.0) 08/30/18 17:41 U Epithel Cells (Auto) < 1.0 /HPF (0-13.0) 08/30/18 17:41 Urine Mucus Few /HPF 08/30/18 17:41 Salicylates < 0.3 mg/dL (2.8-20.0) L 08/30/18 16:39 Urine Opiates Screen Presumptive positive 08/30/18 17:42 Urine Methadone Screen Presumptive negative 08/30/18 17:42 Acetaminophen < 5.0 ug/mL (10.0-30.0) L 08/30/18 16:39 Ur Barbiturates Screen Presumptive negative 08/30/18 17:42 Ur Phencyclidine Scrn Presumptive negative 08/30/18 17:42 Ur Amphetamines Screen Presumptive negative 08/30/18 17:42 U Benzodiazepines Scrn Presumptive negative 08/30/18 17:42 Urine Cocaine Screen Presumptive negative 08/30/18 17:42 U Marijuana (THC) Screen Presumptive negative 08/30/18 17:42 Drugs of Abuse Note Disclamer 08/30/18 17:42
--- NOTE | 2018-09-01 15:00 | Consultation ---
History of Present Illness - Reason for Consult Consult date: 09/01/18 Bacteremia Requesting physician: PAULINE CRYSTAL - History of Present Illness The patient is a 68-year-old male with morbid obesity, right AKA several years ago, hypertension, atrial fibrillation on anticoagulation, chronic pain syndrome was brought to the emergency room on 08/30/2018 with lethargy. Patient was noted to be lethargic, hypotensive and started on BiPAP. He was started on IV levofl oxacin for possible pneumonia. Infectious diseases was consulted due to positive blood cultures. Patient is currently on the floor. He has remained afebrile throughout the hospitalization. He still a little drowsy, but denies any complaints and can be easily awakened. Review of Systems: General: no fevers,chills or rigors HEENT: no new visual disturbance Respiratory: No cough, sputum, hemoptysis or shortness of breath Cardiovascular: No chest pain, syncope Gastrointestinal: No nausea, vomiting or diarrhea Genitourinary: No dysuria or hematuria Musculoskeletal: No new or worsening neck pain or back pain Neurologic: No headaches, seizures Hematologic: No easy bruising or bleeding Endocrine: No night sweats or acute weight loss Skin: negative for rash, jaundice Psychiatric: No suicidal or homicidal ideation Past History Past Medical History: atrial fib (permanent), diabetes, seizures, other (Chronic pain syndrome, Schizophrenia, Bipolar DO) Past Surgical History: Other (R BKA) Social history: single. denies: smoking, alcohol abuse Family history: denies: CAD Medications and Allergies Allergies Allergy/AdvReac Type Severity Reaction Status Date / Time Penicillins Allergy Unknown Verified 07/16/17 17:29 Home Medications Medication Instructions Recorded Confirmed Last Taken Type Atorvastatin Calcium 10 mg PO DAILY 08/30/18 08/30/18 08/30/18 History Baclofen [Lioresal] 10 mg PO BID 08/30/18 08/30/18 08/30/18 History Bumetanide [Bumex 1 mg tab] 2 mg PO DAILY 08/30/18 08/30/18 08/30/18 History Carvedilol [Coreg] 25 mg PO BID 08/30/18 08/30/18 08/30/18 History Docusate Sodium [Colace] 100 mg PO BID PRN 08/30/18 08/30/18 08/30/18 History Ergocalciferol [Vitamin D2] 1 cap PO QWEEK 08/30/18 08/30/18 08/30/18 History Lactulose [Cephulac] 20 gm PO QDAY 08/30/18 08/30/18 08/30/18 History Metformin HCl [Glucophage Xr] 500 mg PO BID 08/30/18 08/30/18 08/30/18 History Morphine Sulfate [Morphine Sulfate 60 mg PO BID 08/30/18 08/30/18 08/30/18 History ER] Omeprazole 20 mg PO DAILY 08/30/18 08/30/18 08/30/18 History Oxycodone HCl [Roxicodone] 30 mg PO Q4HR PRN 08/30/18 08/30/18 08/30/18 History Phenytoin Sodium Extended 200 mg PO Q8HR 08/30/18 08/30/18 08/30/18 History [Dilantin] Pregabalin [Lyrica] 200 mg PO BID 08/30/18 08/30/18 08/30/18 History Rivaroxaban [Xarelto Starter Pack] 20 each PO DAILY 08/30/18 08/30/18 08/30/18 History Venlafaxine [Effexor 37.5mg tab] 37.5 mg PO DAILY 08/30/18 08/30/18 08/30/18 History levETIRAcetam [Keppra] 1,000 mg PO BID 08/30/18 08/30/18 08/30/18 History metOLazone [Zaroxolyn] 2.5 mg PO 3XW 08/30/18 08/30/18 08/30/18 History predniSONE [Prednisone] 5 mg PO DAILY 08/30/18 08/30/18 08/30/18 History Active Meds: Active Medications Acetaminophen (Tylenol) 650 mg PO Q4H PRN PRN Reason: Pain MILD(1-3)/Fever >100.5/[place] Acetaminophen/Hydrocodone Bitart ([place] 5/325) 1 each PO Q6H PRN PRN Reason: Pain, Moderate (4-6) Last Admin: 09/01/18 05:28 Dose: 1 each Documented by: Albuterol (Proventil) 2.5 mg IH Q4HRT PRN PRN Reason: Shortness Of Breath Atorvastatin Calcium (Lipitor) 10 mg PO QHS [facility] Baclofen (Lioresal) 10 mg PO BID [facility] Last Admin: 09/01/18 11:31 Dose: 10 mg Documented by: Docusate Sodium (Colace) 100 mg PO BID PRN PRN Reason: Constipation Donepezil HCl (Aricept) 5 mg PO QHS [facility] Last Admin: 08/31/18 22:13 Dose: 5 mg Documented by: Famotidine (Pepcid) 20 mg PO BID [facility] Last Admin: 09/01/18 09:36 Dose: 20 mg Documented by: Levofloxacin/Dextrose (Levaquin 750mg/150ml) 750 mg in 150 mls @ 100 mls/hr IV Q24HR [facility]; Protocol Last Admin: 09/01/18 09:35 Dose: 100 mls/hr Documented by: Sodium Chloride (Nacl 0.45%) 500 mls @ 100 mls/hr IV DIRECT [facility] Last Admin: 09/01/18 11:31 Dose: 100 mls/hr Documented by: Ibuprofen (Motrin) 800 mg PO Q8HR PRN PRN Reason: Pain, Moderate (4-6) Last Admin: 09/01/18 09:38 Dose: 800 mg Documented by: Lactulose (Cephulac) 20 gm PO QDAY [facility] Last Admin: 09/01/18 11:21 Dose: 20 gm Documented by: Levetiracetam (Keppra) 1,000 mg PO BID [facility] Last Admin: 09/01/18 09:37 Dose: 1,000 mg Documented by: Metolazone (Zaroxolyn) 2.5 mg PO 3XW [facility] Last Admin: 09/01/18 13:04 Dose: 2.5 mg Documented by: Ondansetron HCl (Zofran) 4 mg IV Q8H PRN PRN Reason: Nausea And Vomiting Pantoprazole Sodium (Protonix) 20 mg PO QDAY [facility] Last Admin: 09/01/18 11:24 Dose: 20 mg Documented by: Phenytoin (Dilantin) 200 mg PO Q8HR [facility] Last Admin: 09/01/18 13:00 Dose: 200 mg Documented by: Prednisone (Deltasone) 5 mg PO QDAY [facility] Last Admin: 09/01/18 09:36 Dose: 5 mg Documented by: Pregabalin (Lyrica) 150 mg PO BID [facility] Last Admin: 09/01/18 09:36 Dose: 150 mg Documented by: Rivaroxaban (Xarelto) 20 mg PO DAILY [facility]; Protocol Last Admin: 09/01/18 09:37 Dose: 20 mg Documented by: Sodium Chloride (Sodium Chloride Flush Syringe 10 Ml) 10 ml IV BID [facility] Last Admin: 09/01/18 11:20 Dose: 10 ml Documented by: Sodium Chloride (Sodium Chloride Flush Syringe 10 Ml) 10 ml IV PRN PRN PRN Reason: LINE FLUSH Physical Examination - Physical Exam Narrative exam: Physical Exam: Constitutional: drowsy but easily awakened. Morbidly obese Head, Ears, Nose: Normocephalic, atraumatic. External ears, nose normal Eyes: Conjunctivae/corneas clear. No icterus. No ptosis. Neck: Supple, no meningeal signs Oral: no thrush Cardiovascular: S1, S2 normal. Respiratory: Good air entry, clear to auscultation bilaterally GI: Soft, non-tender; bowel sounds normal. No peritoneal signs Musculoskeletal: Morbid obesity. Left leg in is in a cast. The right AKA stump is well-healed. Skin: Skin breakdowns in the gluteal and sacral region which are superficial. Hem/Lymphatic: No palpable cervical or supraclavicular nodes. No lymphangitis Psych: drowsy Neurological: drowsy but easily awakened - Constitutional Vitals: Vital Signs Temp Pulse Resp BP Pulse Ox 97.3 F L 60 18 111/81 95 09/01/18 11:46 09/01/18 11:45 09/01/18 11:45 09/01/18 11:45 09/01/18 11:45 Temperature -Last 24 Hours Temperature 97.3 F Temperature 97.5 F Temperature 97.2 F Temperature 98.5 F Temperature 98.3 F Results - Labs CBC & Chem 7: 09/01/18 06:50 09/01/18 06:50 Labs: Abnormal lab results 09/01/18 09/01/18 Range/Units 06:50 06:50 Hgb 10.1 L (11.8-15.2) gm/dl Hct 31.7 L (35.5-45.6) % MCV 78 L (84-94) fl MCH 25 L (28-32) pg RDW 15.9 H (13.2-15.2) % Plt Count 100 L (140-440) K/mm3 Sodium 148 H (137-145) mmol/L Potassium 3.3 L (3.6-5.0) mmol/L Chloride 109.2 H (98-107) mmol/L Carbon Dioxide 32 H (22-30) mmol/L BUN 43 H (9-20) mg/dL Creatinine 1.8 H (0.8-1.5) mg/dL Glucose 131 H (75-100) mg/dL - Imaging and Cardiology Chest x-ray: report reviewed, image reviewed (no obvious pneumonia seen) Assessment and Plan Cultures: 08/30/2018 urine culture: No growth 08/30/2018 blood culture: Growing gram-variable rods and Gram positive cocci in 1 of 2 bottles from set 1. Set 2 is negative at 24 hours. A/P: 68-year-old male with morbid obesity, right AKA several years ago, hypertension, atrial fibrillation on anticoagulation, chronic pain syndrome was brought to the emergency room on 08/30/2018 with lethargy. Also with: 1) Mixed bacteremia: Growing gram-variable rods and Gram positive cocci in 1 of 2 bottles from set 1. Set 2 is negative at 24 hours. No fever or leucocytosis. Hemodynamically stable. Follow up speciation, could be contaminant. No additional abx for now. 2) Acute encephalopathy: Probably metabolic from hypercapnia. Patient is on chronic pain medications and also is at risk for obesity hypoventilation. 3) Question of pneumonia: Chest x-ray unremarkable. Patient without any fevers or leukocytosis. Overall, low suspicion for acute bacterial pneumonia. 4) SALUD: renally dose abx Recs: Growing gram-variable rods and Gram positive cocci in 1 of 2 bottles from set 1. Set 2 is negative at 24 hours. No fever or leucocytosis. Hemodynamically stable. Follow up speciation, could be contaminant. No additional abx for now Given decline in renal function, would renally dose Levofloxacin. d/w MD [facility] C: [phone] O: [phone] F: [phone]
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
[2018-09-01] MEDS ORDERED: K-DUR PO ONE (19:34)
[2018-09-01] MEDS ORDERED: NACL 0.45% 1000 ML 1,000 ML IV SCH (20:00)
[2018-09-01] MEDS: ARICEPT PO SCH (21:32)
[2018-09-02 05:23] LABS: Calcium 9.4 mg/dL (8.4-10.2)
[2018-09-02] MEDS: DILANTIN PO SCH ×3 (05:41→21:09)
[2018-09-02] MEDS: NORCO 5/325 PO PRN ×3 (05:41→18:52)
[2018-09-02] MEDS: CEPHULAC PO SCH (09:46)
[2018-09-02] MEDS: DELTASONE PO SCH (09:52)
[2018-09-02] MEDS: KEPPRA PO SCH ×2 (09:52→21:09)
[2018-09-02] MEDS: LYRICA PO SCH (09:52)
[2018-09-02] MEDS: XARELTO PO SCH (09:52)
[2018-09-02] MEDS: PEPCID PO SCH ×2 (09:53→21:08)
[2018-09-02] MEDS: PROTONIX PO SCH (09:53)
[2018-09-02] MEDS: LIORESAL PO SCH ×2 (09:55→21:06)
[2018-09-02] MEDS: SODIUM CHLORIDE FLUSH SYRINGE 10 ML IV SCH ×2 (09:56→21:22)
--- NOTE | 2018-09-02 11:12 | Progress Note ---
Assessment and Plan Cultures: 08/30/2018 urine culture: No growth 08/30/2018 blood culture: Growing gram-variable rods and Gram positive cocci in 1 of 2 bottles from set 1. Set 2 is negative at 24 hours. A/P: 68-year-old male with morbid obesity, right AKA several years ago, hypertension, atrial fibrillation on anticoagulation, chronic pain syndrome was brought to the emergency room on 08/30/2018 with lethargy. Also with: 1) Mixed bacteremia: Growing gram-variable rods and Gram positive cocci in 1 of 2 bottles from set 1. Set 2 is negative at 24 hours. No fever or leucocytosis. Hemodynamically stable. Follow up speciation, could be contaminant. No additional abx for now. 2) Acute encephalopathy: Probably metabolic from hypercapnia. Patient is on chronic pain medications and also is at risk for obesity hypoventilation. 3) Question of pneumonia: Chest x-ray unremarkable. Patient without any fevers or leukocytosis. Overall, low suspicion for acute bacterial pneumonia. 4) SALUD: renally dose abx Recs: Growing gram-variable rods and Gram positive cocci in 1 of 2 bottles from set 1. Set 2 is negative at 24 hours. No fever or leucocytosis. Hemodynamically stable. Continue levofloxacin, renally dosed [facility] M: [phone] O:[phone] Subjective Date of service: 09/02/18 Principal diagnosis: AFib Interval history: Patient seen and examined. Denied generalized pain, SOB. No fevers. Objective - Exam Narrative Exam: Constitutional: Alert, Awake Morbidly obese Head, Ears, Nose: Normocephalic, atraumatic. External ears, nose normal Eyes: Conjunctivae/corneas clear. No icterus. No ptosis. Neck: Supple, no meningeal signs Oral: no thrush Cardiovascular: S1, S2 normal. Respiratory: Good air entry, clear to auscultation bilaterally GI: Soft, non-tender; bowel sounds normal. No peritoneal signs Musculoskeletal: Morbid obesity. Left leg in is in a cast. The right AKA stump is well-healed. Skin: Skin breakdowns in the gluteal and sacral region which are superficial. Hem/Lymphatic: No palpable cervical or supraclavicular nodes. No lymphangitis Psych: Mood: good Neurological: Awake, alert - Constitutional Vitals: Vital Signs Temp Pulse Resp BP Pulse Ox 98.3 F 74 20 112/64 96 09/02/18 10:33 09/02/18 10:33 09/02/18 10:33 09/02/18 10:33 09/02/18 10:33 Temperature -Last 24 Hours Temperature 98.3 F Temperature 98.3 F Temperature 97.7 F Temperature 97.6 F Temperature 97.5 F Temperature 97.3 F - Labs CBC & Chem 7: 09/01/18 06:50 09/02/18 04:42 Labs: Abnormal lab results 08/31/18 08/31/18 08/31/18 Range/Units 13:29 17:21 18:43 POC ABG pCO2 47.7 H (35-45) POC ABG pO2 65 L (80-105) Potassium (3.6-5.0) mmol/L Chloride (98-107) mmol/L BUN (9-20) mg/dL Glucose (75-100) mg/dL POC Glucose 123 H 168 H (70-105) Free T4 (0.76-1.46) ng/dL 08/31/18 09/01/18 09/01/18 Range/Units 21:34 07:51 11:46 POC ABG pCO2 (35-45) POC ABG pO2 (80-105) Potassium (3.6-5.0) mmol/L Chloride (98-107) mmol/L BUN (9-20) mg/dL Glucose (75-100) mg/dL POC Glucose 109 H 123 H 115 H (70-105) Free T4 (0.76-1.46) ng/dL 09/01/18 09/01/18 09/01/18 Range/Units 16:45 17:20 17:21 POC ABG pCO2 51.7 H (35-45) POC ABG pO2 (80-105) Potassium (3.6-5.0) mmol/L Chloride (98-107) mmol/L BUN (9-20) mg/dL Glucose (75-100) mg/dL POC Glucose 126 H (70-105) Free T4 0.75 L (0.76-1.46) ng/dL 09/01/18 09/01/18 09/02/18 Range/Units 18:08 22:38 04:42 POC ABG pCO2 48.9 H (35-45) POC ABG pO2 79 L (80-105) Potassium 3.4 L (3.6-5.0) mmol/L Chloride 107.3 H (98-107) mmol/L BUN 32 H (9-20) mg/dL Glucose 127 H (75-100) mg/dL POC Glucose 116 H (70-105) Free T4 (0.76-1.46) ng/dL
--- NOTE | 2018-09-02 11:51 | Progress Note ---
Assessment and Plan Currently stable cardiac status. Cont present cardiac management. Nothing further to add from cardiac perspective at this time. Will sign off. Recommend follow up in our office with Dr. Salguero within 1-2 weeks of hospital discharge ([phone]). The patient has been seen in conjunction with Dr. Salguero who agrees with the assessment and plan of care. - Patient Problems (1) Sepsis Current Visit: Yes Status: Acute (2) Sepsis associated hypotension Current Visit: Yes Status: Acute (3) Permanent atrial fibrillation Current Visit: Yes Status: Chronic (4) Acute kidney injury Current Visit: Yes Status: Acute (5) Pneumonia Current Visit: Yes Status: Acute Qualifiers: Pneumonia type: due to unspecified organism (6) H/O: hypertension Current Visit: Yes Status: Chronic (7) Morbid obesity Current Visit: Yes Status: Chronic (8) H/O schizophrenia Current Visit: Yes Status: Chronic (9) H/O bipolar disorder Current Visit: Yes Status: Chronic Subjective Date of service: 09/02/18 Principal diagnosis: AFib Interval history: pt resting in bed, states he is feeling a little better. in AFib with CVR on telemetry. Objective Last Vital Signs Temp 98.3 F 09/02/18 10:33 Pulse 74 09/02/18 10:33 Resp 20 09/02/18 10:33 BP 112/64 09/02/18 10:33 Pulse Ox 96 09/02/18 10:33 - Physical Examination General: No Apparent Distress HEENT: Positive: EOMI, Normocephaly, Mucus Membranes Moist Neck: Positive: neck supple, trachea midline Cardiac: Positive: irregularly irregular, S1/S2 Lungs: Positive: Decreased Breath Sounds Neuro: Positive: Grossly Intact Abdomen: Positive: Soft, Active Bowel Sounds. Negative: Tender Skin: Positive: Clear. Negative: Rash Musculoskeletal: other (Left foot and leg in cast. s/p R AKA) Extremities: Absent: edema - Labs and Meds Comprehensive Metabolic Panel 09/02/18 Range/Units 04:42 Sodium 145 (137-145) mmol/L Potassium 3.4 L (3.6-5.0) mmol/L Chloride 107.3 H (98-107) mmol/L Carbon Dioxide 27 (22-30) mmol/L BUN 32 H (9-20) mg/dL Creatinine 1.5 (0.8-1.5) mg/dL Glucose 127 H (75-100) mg/dL Calcium 9.4 (8.4-10.2) mg/dL - Imaging and Cardiology EKG: image reviewed AV and intraventricular conduction: right bundle branch block
--- NOTE | 2018-09-02 17:16 | Progress Note ---
Assessment and Plan Assessment and plan: ?Systemic inflammatory response syndrome to r/o sepsis Cont IV antibiotic therapy, IVF resuscitation as clinically indicated Consult ID Bacteremia Coagulase negative staph ??contamination vs infection Repeat blood cultures Consult ID Discussed with ID Physician Hypotension, resolved Hold meds for now. hold Coreg, hold diuretic start iv fluids Metabolic encephalopathy improving ammonia normal TSH normal MRI ordered but cannot be done because of body habitus Seizure disorder Cont Keppra Schizophrenia History of Hypertension Monitor BP, continue medical management. Diabetes Mellitus type 2 Fingerstick q ac and hs Consistent carb diet Gastroesophageal reflux disease) PPI therapy, Atrial fibrillation Resume xarelto Chronic pain. Hold meds for now because hypotension DVT prophylaxis SALUD improved Creatinine down to 1.5 cont iv fluids Nephrology following. Discussed with Nephrology History Interval history: Less confused generalized weakness no fever Hospitalist Physical - Physical exam Narrative exam: GEN: Not in acute distress, lying in bed, morbidly obese HEENT: Normocephalic, atraumatic, Neck: supple, No JVD Lungs: Clear to auscultation bilat, no crackles, no wheeze Abd:soft, non tender, non distended, normal bowel sounds Ext: Right AKA, no cyanosis Neuro:Awake,alert, mild confusion, oriented to person , place, time, no focal signs Psych:Normal mood - Constitutional Vitals: Temp Pulse Resp BP Pulse Ox 98.3 F 74 20 112/64 96 09/02/18 10:33 09/02/18 10:33 09/02/18 10:33 09/02/18 10:33 09/02/18 10:33 General appearance: Present: no acute distress Results - Labs CBC & Chem 7: 09/01/18 06:50 09/02/18 04:42 Labs: Laboratory Last Values WBC 4.9 K/mm3 (4.5-11.0) 09/01/18 06:50 RBC 4.05 M/mm3 (3.65-5.03) 09/01/18 06:50 Hgb 10.1 gm/dl (11.8-15.2) L 09/01/18 06:50 Hct 31.7 % (35.5-45.6) L 09/01/18 06:50 MCV 78 fl (84-94) L 09/01/18 06:50 MCH 25 pg (28-32) L 09/01/18 06:50 MCHC 32 % (32-34) 09/01/18 06:50 RDW 15.9 % (13.2-15.2) H 09/01/18 06:50 Plt Count 100 K/mm3 (140-440) L 09/01/18 06:50 Lymph % (Auto) 41.1 % (13.4-35.0) H 08/31/18 06:53 [place] % (Auto) 8.7 % (0.0-7.3) H 08/31/18 06:53 Eos % (Auto) 1.8 % (0.0-4.3) 08/31/18 06:53 Baso % (Auto) 0.3 % (0.0-1.8) 08/31/18 06:53 Lymph # 2.0 K/mm3 (1.2-5.4) 08/31/18 06:53 [place] # 0.4 K/mm3 (0.0-0.8) 08/31/18 06:53 Eos # 0.1 K/mm3 (0.0-0.4) 08/31/18 06:53 Baso # 0.0 K/mm3 (0.0-0.1) 08/31/18 06:53 Seg Neutrophils % 48.1 % (40.0-70.0) 08/31/18 06:53 Seg Neutrophils # 2.4 K/mm3 (1.8-7.7) 08/31/18 06:53 PT 17.5 Sec. (12.2-14.9) H 08/30/18 16:39 INR 1.35 (0.87-1.13) H 08/30/18 16:39 APTT 38.8 Sec. (24.2-36.6) H 08/30/18 16:39 D-Dimer 254.74 ng/mlDDU (0-234) H 08/30/18 16:39 POC ABG pH 7.412 (7.35-7.45) 09/01/18 18:08 POC ABG pCO2 48.9 (35-45) H 09/01/18 18:08 POC ABG pO2 79 (80-105) L 09/01/18 18:08 POC ABG HCO3 31.1 (22-26 mml/L) 09/01/18 18:08 POC ABG Total CO2 33 (23-27mmol/L) 09/01/18 18:08 POC ABG O2 Sat 96 09/01/18 18:08 POC ABG Base Excess 7 ((-2) - (+3)mmol/L) 09/01/18 18:08 FiO2 21 % 09/01/18 18:08 Sodium 145 mmol/L (137-145) 09/02/18 04:42 Potassium 3.4 mmol/L (3.6-5.0) L 09/02/18 04:42 Chloride 107.3 mmol/L (98-107) H 09/02/18 04:42 Carbon Dioxide 27 mmol/L (22-30) 09/02/18 04:42 Anion Gap 14 mmol/L 09/02/18 04:42 BUN 32 mg/dL (9-20) H 09/02/18 04:42 Creatinine 1.5 mg/dL (0.8-1.5) 09/02/18 04:42 Estimated GFR 57 ml/min 09/02/18 04:42 BUN/Creatinine Ratio 21 % 09/02/18 04:42 Glucose 127 mg/dL (75-100) H 09/02/18 04:42 POC Glucose 105 (70-105) 09/02/18 12:57 Lactic Acid 1.70 mmol/L (0.7-2.0) 08/30/18 20:45 Calcium 9.4 mg/dL (8.4-10.2) 09/02/18 04:42 Magnesium 1.80 mg/dL (1.7-2.3) 09/02/18 04:42 Total Bilirubin 0.30 mg/dL (0.1-1.2) 08/30/18 18:08 Direct Bilirubin < 0.2 mg/dL (0-0.2) 08/30/18 16:39 Indirect Bilirubin 0.0 mg/dL 08/30/18 16:39 AST 18 units/L (5-40) 08/30/18 18:08 ALT 15 units/L (7-56) 08/30/18 18:08 Alkaline Phosphatase 76 units/L (35-129) 08/30/18 18:08 Ammonia 51.0 umol/L (25-60) 08/31/18 09:27 Troponin T 0.024 ng/mL (0.00-0.029) 08/30/18 18:08 NT-Pro-B Natriuret Pep 504.7 pg/mL (0-900) 08/30/18 19:23 Total Protein 6.5 g/dL (6.3-8.2) 08/30/18 18:08 Albumin 3.8 g/dL (3.9-5) L 08/30/18 18:08 Albumin/Globulin Ratio 1.4 % 08/30/18 18:08 TSH 0.680 mlU/mL (0.270-4.200) 09/01/18 16:45 Free T4 0.75 ng/dL (0.76-1.46) L 09/01/18 16:45 Urine Color Yellow (Yellow) 08/30/18 17:41 Urine Turbidity Clear (Clear) 08/30/18 17:41 Urine pH 5.0 (5.0-7.0) 08/30/18 17:41 Ur Specific [place] 1.010 (1.003-1.030) 08/30/18 17:41 Urine Protein <15 mg/dl mg/dL (Negative) 08/30/18 17:41 Urine Glucose (UA) Neg mg/dL (Negative) 08/30/18 17:41 Urine Ketones Neg mg/dL (Negative) 08/30/18 17:41 Urine Blood Neg (Negative) 08/30/18 17:41 Urine Nitrite Neg (Negative) 08/30/18 17:41 Urine Bilirubin Neg (Negative) 08/30/18 17:41 Urine Urobilinogen < 2.0 mg/dL (<2.0) 08/30/18 17:41 Ur Leukocyte Esterase Neg (Negative) 08/30/18 17:41 Urine WBC (Auto) < 1.0 /HPF (0.0-6.0) 08/30/18 17:41 Urine RBC (Auto) 0.0 /HPF (0.0-6.0) 08/30/18 17:41 U Epithel Cells (Auto) < 1.0 /HPF (0-13.0) 08/30/18 17:41 Urine Mucus Few /HPF 08/30/18 17:41 Salicylates < 0.3 mg/dL (2.8-20.0) L 08/30/18 16:39 Urine Opiates Screen Presumptive positive 08/30/18 17:42 Urine Methadone Screen Presumptive negative 08/30/18 17:42 Acetaminophen < 5.0 ug/mL (10.0-30.0) L 08/30/18 16:39 Ur Barbiturates Screen Presumptive negative 08/30/18 17:42 Ur Phencyclidine Scrn Presumptive negative 08/30/18 17:42 Ur Amphetamines Screen Presumptive negative 08/30/18 17:42 U Benzodiazepines Scrn Presumptive negative 08/30/18 17:42 Urine Cocaine Screen Presumptive negative 08/30/18 17:42 U Marijuana (THC) Screen Presumptive negative 08/30/18 17:42 Drugs of Abuse Note Disclamer 08/30/18 17:42
--- NOTE | 2018-09-02 20:06 | Progress Note ---
Assessment and Plan - Patient Problems (1) Acute kidney injury Current Visit: Yes Status: Acute Plan to address problem: Suspect Pre-renal azotemia versus acute tubular necrosis secondary to hypotension. I am also concerned about urinary retention given his symptoms. Patient was on Bumex, Losartan and spironolactone. Kidney function improving. Follow-up electrolytes and renal function. (2) Hypernatremia Current Visit: Yes Status: Acute Plan to address problem: Continue free water replacement and follow sodium. (3) Hypokalemia Current Visit: Yes Status: Acute Plan to address problem: Supplement potassium and follow-up level (4) Hypotension Current Visit: Yes Status: Acute Plan to address problem: BP improved off all hypotensive medications. Follow closely (5) Encephalopathy acute Current Visit: Yes Status: Acute Plan to address problem: Suspect toxic encephalopathy secondary to medications and obstructive sleep apnea syndrome/obesity hypoventilation syndrome. Improving (6) Type 2 diabetes mellitus Current Visit: Yes Status: Acute Plan to address problem: Blood sugar management by primary attending. Increase Lyrica back to 150 mg twice a day Subjective Date of service: 09/02/18 Principal diagnosis: AFib Interval history: Patient seen lying in bed. Complains of burning in his amputation stump. Shortness of breath improving. Had nausea earlier this morning but result. No vomiting Objective - Exam Narrative Exam: Middle-aged -[place] male morbidly obese lying in bed in no acute distress HEENT: NCAT, pink oral mucous membrane Neck: Supple, no venous distention CVS: S1S2 RRR with no murmur, rub or gallop Chest: Clear to auscultation Abdomen: Obese, soft, nontender, no organomegaly, bowel sounds are present Extremities: No edema, right above-knee amputation with well-healed stump. Left leg and foot immobilized with dressing Genitourinary deferred Skin is warm and dry Neuro: Awake, alert no focal deficits - Vital Signs Vital signs: Vital Signs - 12hr 09/02/18 09/02/18 09/02/18 09:11 10:00 10:33 Temperature 98.3 F Pulse Rate 86 74 Respiratory 19 20 Rate Blood Pressure 112/64 O2 Sat by Pulse 96 Oximetry 09/02/18 17:55 Temperature 98.2 F Pulse Rate 66 Respiratory 18 Rate Blood Pressure 121/71 O2 Sat by Pulse 96 Oximetry - Lab 09/01/18 06:50 09/02/18 04:42 Most recent lab results Calcium 9.4 mg/dL (8.4-10.2) 09/02/18 04:42 Magnesium 1.80 mg/dL (1.7-2.3) 09/02/18 04:42 Medications & Allergies - Medications Allergies/Adverse Reactions: Allergies Penicillins Allergy (Verified 07/16/17 17:29) Unknown Home Medications: Home Medications Medication Instructions Recorded Confirmed Last Taken Type Atorvastatin Calcium 10 mg PO DAILY 08/30/18 08/30/18 08/30/18 History Baclofen [Lioresal] 10 mg PO BID 08/30/18 08/30/18 08/30/18 History Bumetanide [Bumex 1 mg tab] 2 mg PO DAILY 08/30/18 08/30/18 08/30/18 History Carvedilol [Coreg] 25 mg PO BID 08/30/18 08/30/18 08/30/18 History Docusate Sodium [Colace] 100 mg PO BID PRN 08/30/18 08/30/18 08/30/18 History Ergocalciferol [Vitamin D2] 1 cap PO QWEEK 08/30/18 08/30/18 08/30/18 History Lactulose [Cephulac] 20 gm PO QDAY 08/30/18 08/30/18 08/30/18 History Metformin HCl [Glucophage Xr] 500 mg PO BID 08/30/18 08/30/18 08/30/18 History Morphine Sulfate [Morphine Sulfate 60 mg PO BID 08/30/18 08/30/18 08/30/18 History ER] Omeprazole 20 mg PO DAILY 08/30/18 08/30/18 08/30/18 History Oxycodone HCl [Roxicodone] 30 mg PO Q4HR PRN 08/30/18 08/30/18 08/30/18 History Phenytoin Sodium Extended 200 mg PO Q8HR 08/30/18 08/30/18 08/30/18 History [Dilantin] Pregabalin [Lyrica] 200 mg PO BID 08/30/18 08/30/18 08/30/18 History Rivaroxaban [Xarelto Starter Pack] 20 each PO DAILY 08/30/18 08/30/18 08/30/18 History Venlafaxine [Effexor 37.5mg tab] 37.5 mg PO DAILY 08/30/18 08/30/18 08/30/18 History levETIRAcetam [Keppra] 1,000 mg PO BID 08/30/18 08/30/18 08/30/18 History metOLazone [Zaroxolyn] 2.5 mg PO 3XW 08/30/18 08/30/18 08/30/18 History predniSONE [Prednisone] 5 mg PO DAILY 08/30/18 08/30/18 08/30/18 History Active Medications: Generic Name Dose Route Start Last Admin Trade Name Freq PRN Reason Stop Dose Admin Acetaminophen 650 mg 08/30/18 19:21 Tylenol PO Q4H PRN Pain MILD(1-3)/Fever >100.5/[place] Acetaminophen/Hydrocodone Bitart 1 each 08/30/18 19:25 09/02/18 18:52 [place] 5/325 PO 1 each Q6H PRN Administration Pain, Moderate (4-6) Albuterol 2.5 mg 08/30/18 19:21 Proventil IH Q4HRT PRN Shortness Of Breath Atorvastatin Calcium 10 mg 09/01/18 22:00 09/01/18 21:32 Lipitor PO 10 mg QHS MELINA Administration Baclofen 10 mg 09/01/18 11:00 09/02/18 09:55 Lioresal PO 10 mg BID MELINA Administration Docusate Sodium 100 mg 09/01/18 08:38 Colace PO BID PRN Constipation Donepezil HCl 5 mg 08/30/18 22:00 09/01/18 21:32 Aricept PO 5 mg QHS MELINA Administration Famotidine 20 mg 08/30/18 22:00 09/02/18 09:53 Pepcid PO 20 mg BID MELINA Administration Levofloxacin/Dextrose 750 mg in 150 mls @ 100 mls/hr 09/03/18 10:00 Levaquin 750mg/150ml IV Q48HR MELINA Protocol Sodium Chloride 1,000 mls @ 50 mls/hr 09/01/18 20:00 09/01/18 21:33 Nacl 0.45% 1000 Ml IV 50 mls/hr DIRECT MELINA Administration Lactulose 20 gm 09/01/18 11:00 09/02/18 09:46 Cephulac PO Not Given QDAY MELINA Levetiracetam 1,000 mg 08/30/18 22:00 09/02/18 09:52 Keppra PO 1,000 mg BID MELINA Administration Ondansetron HCl 4 mg 08/30/18 19:21 Zofran IV Q8H PRN Nausea And Vomiting Pantoprazole Sodium 20 mg 09/01/18 12:00 09/02/18 09:53 Protonix PO 20 mg QDAY MELINA Administration Phenytoin 200 mg 09/01/18 14:00 09/02/18 14:17 Dilantin PO 200 mg Q8HR MELINA Administration Prednisone 5 mg 08/31/18 10:00 09/02/18 09:52 Deltasone PO 5 mg QDAY MELINA Administration Pregabalin 100 mg 09/01/18 19:36 09/02/18 09:52 Lyrica PO 100 mg BID MELINA Administration Rivaroxaban 20 mg 08/31/18 10:00 09/02/18 09:52 Xarelto PO 20 mg DAILY MELINA Administration Protocol Sodium Chloride 10 ml 08/30/18 22:00 09/02/18 09:56 Sodium Chloride Flush Syringe 10 Ml IV 10 ml BID MELINA Administration Sodium Chloride 10 ml 08/30/18 19:21 Sodium Chloride Flush Syringe 10 Ml IV PRN PRN LINE FLUSH
[2018-09-02] MEDS: TYLENOL PO PRN (21:08)
[2018-09-02] MEDS: ARICEPT PO SCH (21:10)
[2018-09-02] MEDS ORDERED: LYRICA PO SCH ×2 (22:00)
[2018-09-03] MEDS: DILANTIN PO SCH ×3 (04:53→14:21)
[2018-09-03] MEDS: NORCO 5/325 PO PRN ×3 (04:53→17:28)
[2018-09-03 05:50] LABS: Calcium 9.8 mg/dL (8.4-10.2)
[2018-09-03] MEDS ORDERED: LYRICA PO SCH ×2 (09:37→14:30)
--- NOTE | 2018-09-03 09:39 | Progress Note ---
Assessment and Plan - Patient Problems (1) Acute kidney injury Current Visit: Yes Status: Acute Plan to address problem: Suspect Pre-renal azotemia versus acute tubular necrosis secondary to hypotension. Patient was on Bumex, Losartan and spironolactone. Kidney function improving. Follow-up electrolytes and renal function. (2) Hypernatremia Current Visit: Yes Status: Acute Plan to address problem: Continue free water replacement and follow sodium. (3) Hypokalemia Current Visit: Yes Status: Acute Plan to address problem: Supplement potassium and follow-up level (4) Hypotension Current Visit: Yes Status: Acute Plan to address problem: BP improved off all hypotensive medications. Follow closely (5) Encephalopathy acute Current Visit: Yes Status: Acute Plan to address problem: Suspect toxic encephalopathy secondary to medications and obstructive sleep apne a syndrome/obesity hypoventilation syndrome. Improving (6) Type 2 diabetes mellitus Current Visit: Yes Status: Acute Plan to address problem: Blood sugar management by primary attending. Increase Lyrica back to 150 mg twice a day Subjective Date of service: 09/03/18 Principal diagnosis: AFib Interval history: Patient seen lying in bed. Still Complains of burning in his amputation stump. Shortness of breath improved. No nausea or vomiting Objective - Exam Narrative Exam: Middle-aged -[place] male morbidly obese lying in bed in no acute distress HEENT: NCAT, pink oral mucous membrane Neck: Supple, no venous distention CVS: S1S2 RRR with no murmur, rub or gallop Chest: Clear to auscultation Abdomen: Obese, soft, nontender, no organomegaly, bowel sounds are present Extremities: No edema, right above-knee amputation with well-healed stump. Left leg and foot immobilized with dressing Genitourinary deferred Skin is warm and dry Neuro: Awake, alert no focal deficits - Vital Signs Vital signs: Vital Signs - 12hr 09/02/18 09/03/18 22:00 01:26 Temperature 97.2 F L Pulse Rate 60 67 Respiratory 18 18 Rate Blood Pressure 92/55 O2 Sat by Pulse 100 Oximetry - Lab 09/01/18 06:50 09/03/18 04:37 Most recent lab results Calcium 9.8 mg/dL (8.4-10.2) 09/03/18 04:37 Magnesium 1.80 mg/dL (1.7-2.3) 09/02/18 04:42 Medications & Allergies - Medications Allergies/Adverse Reactions: Allergies Penicillins Allergy (Verified 07/16/17 17:29) Unknown Home Medications: Home Medications Medication Instructions Recorded Confirmed Last Taken Type Atorvastatin Calcium 10 mg PO DAILY 08/30/18 08/30/18 08/30/18 History Baclofen [Lioresal] 10 mg PO BID 08/30/18 08/30/18 08/30/18 History Bumetanide [Bumex 1 mg tab] 2 mg PO DAILY 08/30/18 08/30/18 08/30/18 History Carvedilol [Coreg] 25 mg PO BID 08/30/18 08/30/18 08/30/18 History Docusate Sodium [Colace] 100 mg PO BID PRN 08/30/18 08/30/18 08/30/18 History Ergocalciferol [Vitamin D2] 1 cap PO QWEEK 08/30/18 08/30/18 08/30/18 History Lactulose [Cephulac] 20 gm PO QDAY 08/30/18 08/30/18 08/30/18 History Metformin HCl [Glucophage Xr] 500 mg PO BID 08/30/18 08/30/18 08/30/18 History Morphine Sulfate [Morphine Sulfate 60 mg PO BID 08/30/18 08/30/18 08/30/18 History ER] Omeprazole 20 mg PO DAILY 08/30/18 08/30/18 08/30/18 History Oxycodone HCl [Roxicodone] 30 mg PO Q4HR PRN 08/30/18 08/30/18 08/30/18 History Phenytoin Sodium Extended 200 mg PO Q8HR 08/30/18 08/30/18 08/30/18 History [Dilantin] Pregabalin [Lyrica] 200 mg PO BID 08/30/18 08/30/18 08/30/18 History Rivaroxaban [Xarelto Starter Pack] 20 each PO DAILY 08/30/18 08/30/18 08/30/18 History Venlafaxine [Effexor 37.5mg tab] 37.5 mg PO DAILY 08/30/18 08/30/18 08/30/18 History levETIRAcetam [Keppra] 1,000 mg PO BID 08/30/18 08/30/18 08/30/18 History metOLazone [Zaroxolyn] 2.5 mg PO 3XW 08/30/18 08/30/18 08/30/18 History predniSONE [Prednisone] 5 mg PO DAILY 08/30/18 08/30/18 08/30/18 History Active Medications: Generic Name Dose Route Start Last Admin Trade Name Freq PRN Reason Stop Dose Admin Acetaminophen 650 mg 08/30/18 19:21 09/02/18 21:08 Tylenol PO 650 mg Q4H PRN Administration Pain MILD(1-3)/Fever >100.5/[place] Acetaminophen/Hydrocodone Bitart 1 each 08/30/18 19:25 09/03/18 04:53 [place] 5/325 PO 1 each Q6H PRN Administration Pain, Moderate (4-6) Albuterol 2.5 mg 08/30/18 19:21 Proventil IH Q4HRT PRN Shortness Of Breath Atorvastatin Calcium 10 mg 09/01/18 22:00 09/02/18 21:08 Lipitor PO 10 mg QHS MELINA Administration Baclofen 10 mg 09/01/18 11:00 09/02/18 21:06 Lioresal PO 10 mg BID MELINA Administration Docusate Sodium 100 mg 09/01/18 08:38 Colace PO BID PRN Constipation Donepezil HCl 5 mg 08/30/18 22:00 09/02/18 21:10 Aricept PO 5 mg QHS MELINA Administration Famotidine 20 mg 08/30/18 22:00 09/02/18 21:08 Pepcid PO 20 mg BID MELINA Administration Levofloxacin/Dextrose 750 mg in 150 mls @ 100 mls/hr 09/03/18 10:00 Levaquin 750mg/150ml IV Q48HR MELINA Protocol Sodium Chloride 1,000 mls @ 50 mls/hr 09/01/18 20:00 09/01/18 21:33 Nacl 0.45% 1000 Ml IV 50 mls/hr DIRECT MELINA Administration Lactulose 20 gm 09/01/18 11:00 09/02/18 09:46 Cephulac PO Not Given QDAY MELINA Levetiracetam 1,000 mg 08/30/18 22:00 09/02/18 21:09 Keppra PO 1,000 mg BID MELINA Administration Ondansetron HCl 4 mg 08/30/18 19:21 Zofran IV Q8H PRN Nausea And Vomiting Pantoprazole Sodium 20 mg 09/01/18 12:00 09/02/18 09:53 Protonix PO 20 mg QDAY MELINA Administration Phenytoin 200 mg 09/01/18 14:00 09/03/18 05:14 Dilantin PO Not Given Q8HR MELINA Prednisone 5 mg 08/31/18 10:00 09/02/18 09:52 Deltasone PO 5 mg QDAY MELINA Administration Pregabalin 25 mg 09/02/18 22:00 09/02/18 21:22 Lyrica PO 25 mg BID MELINA Administration Pregabalin 75 mg 09/02/18 22:00 09/02/18 21:22 Lyrica PO 75 mg BID MELINA Administration Rivaroxaban 20 mg 08/31/18 10:00 09/02/18 09:52 Xarelto PO 20 mg DAILY MELINA Administration Protocol Sodium Chloride 10 ml 08/30/18 22:00 09/02/18 21:22 Sodium Chloride Flush Syringe 10 Ml IV 10 ml BID MELINA Administration Sodium Chloride 10 ml 08/30/18 19:21 Sodium Chloride Flush Syringe 10 Ml IV PRN PRN LINE FLUSH
[2018-09-03] MEDS: TYLENOL PO PRN (09:59)
[2018-09-03] MEDS: PROTONIX PO SCH (10:00)
[2018-09-03] MEDS: KEPPRA PO SCH (10:00)
[2018-09-03] MEDS: PEPCID PO SCH (10:00)
[2018-09-03] MEDS: XARELTO PO SCH (10:00)
[2018-09-03] MEDS: CEPHULAC PO SCH (10:00)
[2018-09-03] MEDS ORDERED: LEVAQUIN 750MG/150ML 750 MG/150 ML BAG IV SCH (10:00)
[2018-09-03] MEDS: LIORESAL PO SCH (10:00)
[2018-09-03] MEDS: DELTASONE PO SCH (10:00)
--- NOTE | 2018-09-03 11:43 | Progress Note ---
Assessment and Plan Cultures: 08/30/2018 urine culture: No growth 08/30/2018 blood culture: A/P: 68-year-old male with morbid obesity, right AKA several years ago, hypertension, atrial fibrillation on anticoagulation, chronic pain syndrome was brought to the emergency room on 08/30/2018 with lethargy. Also with: 1) Mixed bacteremia: No fever or leucocytosis. Hemodynamically stable. CoNS 1 out of 2 bottles, Diptheroids 1 out of 2 bottles, 2 sets negative for 72 hours Likely contaminent. Discontinue Levofloxacin. 2) Acute encephalopathy: Probably metabolic from hypercapnia. Patient is on chronic pain medications and also is at risk for obesity hypoventilation. 3) Question of pneumonia: Chest x-ray unremarkable. Patient without any fevers or leukocytosis. Overall, low suspicion for acute bacterial pneumonia. 4) SALUD: renally dose abx Recs: No fever or leucocytosis. Hemodynamically stable. Discontinue Levofloxacin Monitor off antibiotics Dr. Tinoco will be adult education manager this weekend, , please call for questions. [employer] M: [phone] O:[phone] Subjective Date of service: 09/03/18 Principal diagnosis: AFib Interval history: Patient seen and examined. Denied generalized pain, SOB. No fevers. Objective - Exam Narrative Exam: Constitutional: Alert, Awake Morbidly obese Head, Ears, Nose: Normocephalic, atraumatic. External ears, nose normal Eyes: Conjunctivae/corneas clear. No icterus. No ptosis. Neck: Supple, no meningeal signs Oral: no thrush Cardiovascular: S1, S2 normal. Respiratory: Good air entry, clear to auscultation bilaterally GI: Soft, non-tender; bowel sounds normal. No peritoneal signs Musculoskeletal: Morbid obesity. Left leg in is in a cast. The right AKA stump is well-healed. Skin: Skin breakdowns in the gluteal and sacral region which are superficial. Hem/Lymphatic: No palpable cervical or supraclavicular nodes. No lymphangitis Psych: Mood: good Neurological: Awake, alert - Constitutional Vitals: Vital Signs Temp Pulse Resp BP Pulse Ox 99.1 F 79 18 109/54 100 09/03/18 09:41 09/03/18 09:41 09/03/18 09:41 09/03/18 09:41 09/03/18 01:26 Temperature -Last 24 Hours Temperature 99.1 F Temperature 97.2 F Temperature 98.6 F Temperature 98.2 F - Labs CBC & Chem 7: 09/01/18 06:50 09/03/18 04:37 Labs: Abnormal lab results 09/02/18 09/03/18 Range/Units 21:17 04:37 Potassium 3.5 L (3.6-5.0) mmol/L BUN 26 H (9-20) mg/dL Creatinine 1.6 H (0.8-1.5) mg/dL Glucose 131 H (75-100) mg/dL POC Glucose 144 H (70-105)
--- NOTE | 2018-09-03 14:11 | Discharge Summary ---
Providers - Providers Date of Admission: 08/30/18 19:22 Date of discharge: 09/03/18 Attending physician: PAULINE CRYSTAL 08/30/18 19:21 Consult to Physician [CONS] Routine Comment: Consulting Provider: VIRY COVARRUBIAS Physician Instructions: Reason For Exam: CHF/A fib 09/01/18 09:00 Consult to Physician [CONS] Routine Comment: Consulting Provider: DAIANA WHITT Physician Instructions: Reason For Exam: SALUD 09/01/18 13:46 Consult to Physician [CONS] Routine Comment: Consulting Provider: HANNAH HOOPER Physician Instructions: Reason For Exam: Bacteremia 09/03/18 08:14 Consult to Wound/ET Nurse [CONS] Routine Reason For Exam: wound eval Primary care physician: ANESTHESIOLOGIST ATTENDING Hospitalization Condition: Fair Hospital course: 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 Patient presented with altered mental status, confusion, and worsening phantom limb pain below his right stump. He was seen and evaluated in ED and found to have, SIRS, Encephalopathy, Obesity Hypoventilation Syndrome, Acidosis. He was started on Bipap, admitted to Telemetry. Patient had bacteremia, therefore ID consulted. Blood cultures grew diptheroids and Coag neg staph. ID Physician determined this was due to contamination and discontinued empiric Antibiotic. Encephalopathy improved, and he was discharged to [facility] on 09/03/18. Total time spent on discharge, 32 mins Disposition: [id number]/[place]-03 SNF W [facility] CERT - Discharge Diagnoses (1) Acute kidney injury Status: Acute (2) Diabetes Status: Acute (3) HTN (hypertension) Status: Acute Qualifiers: Hypertension type: essential hypertension Qualified Code(s): I10 - Essential (primary) hypertension (4) Toxic metabolic encephalopathy Status: Acute (5) Hypotension Status: Acute Core Measure Documentation - Palliative Care Palliative Care/ Comfort Measures: Not Applicable - Core Measures Any of the following diagnoses?: none Exam - Constitutional Vitals: Temp Pulse Resp BP Pulse Ox 99.1 F 79 18 109/54 100 09/03/18 09:41 09/03/18 09:41 09/03/18 09:41 09/03/18 09:41 03/15/19 01:26 Plan Activity: advance as tolerated Diet: low fat, low cholesterol, low salt Additional Instructions: 1.Follow up with Physician in SNF in 2-3 days Follow up with: PRIMARY CARE, [Primary Care Provider] - 3-5 Days Prescriptions: glipiZIDE [Glipizide] 5 mg PO DAILY #30 tablet
[2018-09-03 17:32] VITALS: BP 117/76
[2018-09-03] MEDS: SODIUM CHLORIDE FLUSH SYRINGE 10 ML IV SCH (18:09)
== END 2018-09-03 19:16 | DRG 193 ==
LOC: ED 14:08 → 4A 19:22
PROVIDERS: ADMIT Internal Medicine; ATTEND Internal Medicine
PROC: 4A033R1 Measurement of Arterial Saturation, Peripheral, Percutaneous Approach (ICD-10-PCS; principal; 2018-08-31)
DX: J18.9 Pneumonia, unspecified organism (principal); G93.41 Metabolic encephalopathy; N17.9 Acute kidney failure, unspecified; Z68.42 Body mass index [BMI] 45.0-49.9, adult; E66.2 Morbid (severe) obesity with alveolar hypoventilation; E87.0 Hyperosmolality and hypernatremia; F20.9 Schizophrenia, unspecified; G89.4 Chronic pain syndrome; I50.9 Heart failure, unspecified; I11.0 Hypertensive heart disease with heart failure; M19.90 Unspecified osteoarthritis, unspecified site; F31.9 Bipolar disorder, unspecified; J45.909 Unspecified asthma, uncomplicated; I48.91 Unspecified atrial fibrillation; G40.909 Epilepsy, unspecified, not intractable, without status epilepticus; E87.6 Hypokalemia; K21.9 Gastro-esophageal reflux disease without esophagitis; E88.81 Metabolic syndrome and other insulin resistance; E11.9 Type 2 diabetes mellitus without complications; Z83.3 Family history of diabetes mellitus; Z82.49 Family history of ischemic heart disease and other diseases of the circulatory system; Z89.611 Acquired absence of right leg above knee; Z79.01 Long term (current) use of anticoagulants; Z88.0 Allergy status to penicillin; Z79.84 Long term (current) use of oral hypoglycemic drugs
CPT/HCPCS: 36415; 36600; 70450; 71045; 80048; 80053; 80076; 80307; 80320; 81001; 82140; 82803; 82962; 83735; 83880; 84439; 84443; 84484; 85025; 85027; 85379; 85610; 85730; 87040; 87086; 87116; 93005; 93010; 93306; 94760; G0378; A9270-GY; G0480; J1956; J2310; J2405; J7030; J7050; J7512

== ENCOUNTER 2018-11-01 08:13 | Inpatient (IN) | payer MEDICARE ==
--- NOTE | 2018-11-01 08:47 | Emergency Department Report ---
ED General Adult HPI - General Chief complaint: Altered Mental Status Stated complaint: ALTERED MENTAL Time Seen by Provider: 11/01/18 08:44 Source: EMS Mode of arrival: Stretcher Limitations: Altered Mental Status, Physical Limitation - History of Present Illness Initial comments: This is a 68 year old male who is sent from the detention for evaluation of deterioration of his mental status. He was here in August under similar circumstances. He has multiple co-morbidities to include anticoagulant therapy diabetes congestive heart failure chronic pain syndrome and schizophrenia. He was found to have blood cultures that were positive for anaerobic organisms and coagulase-negative staph. Per the discharge summary infectious disease considered this to be likely contamination: Hospitalization Condition: Fair Hospital course: Patient is 68yo Assisted Facility Resident with morbid obesity, atrial fibrillation, on Xarelto,diabetes, CHF, seizure disorder, chronic pain syndrome, schizophrenia presents to ED for evaluation. Patient presented with altered mental status, confusion, and worsening phantom limb pain below his right stump. He was seen and evaluated in ED and found to have, SIRS, Encephalopathy, Obesity Hypoventilation Syndrome, Acidosis. He was started on Bipap, admitted to Telemetry. Patient had bacteremia, therefore ID consulted. Blood cultures grew diptheroids and Coag neg staph. ID Physician determined this was due to contamination and discontinued empiric Antibiotic. Encephalopathy improved, and he was discharged to [facility] on 09/03/18. Total time spent on discharge, 32 mins Disposition: [id number]/[id number] SNF W [facility] CERT - Discharge Diagnoses (1) Acute kidney injury Status: Acute (2) Diabetes Status: Acute (3) HTN (hypertension) Status: Acute Qualifiers: Hypertension type: essential hypertension Qualified Code(s): I10 - Essential (primary) hypertension (4) Toxic metabolic encephalopathy Status: Acute (5) Hypotension Status: Acute Patient presents here today under similar circumstances. He is not able to give any startle information. I have no report of recent fever per the detention. He is found to have a reasonable blood glucose on arrival. -: unknown - Related Data Home Medications Medication Instructions Recorded Confirmed Last Taken Atorvastatin Calcium 10 mg PO DAILY 08/30/18 11/01/18 08/30/18 Bumetanide [Bumex 1 mg tab] 2 mg PO DAILY 08/30/18 11/01/18 08/30/18 Carvedilol [Coreg] 25 mg PO BID 08/30/18 11/01/18 08/30/18 Docusate Sodium [Colace CAP] 100 mg PO BID PRN 08/30/18 11/01/18 08/30/18 Lactulose [Cephulac] 20 gm PO QHS PRN 08/30/18 11/01/18 08/30/18 Phenytoin Sodium Extended 200 mg PO Q8HR 08/30/18 11/01/18 08/30/18 [Dilantin] Pregabalin [Lyrica] 200 mg PO BID 08/30/18 11/01/18 08/30/18 Rivaroxaban [Xarelto Starter Pack] 20 each PO DAILY 08/30/18 11/01/18 08/30/18 Venlafaxine [Effexor 37.5mg tab] 75 mg PO QHS 08/30/18 11/01/18 08/30/18 levETIRAcetam [Keppra] 1,000 mg PO BID 08/30/18 11/01/18 08/30/18 metOLazone [Zaroxolyn] 2.5 mg PO 3XW 08/30/18 11/01/18 08/30/18 predniSONE [Prednisone] 5 mg PO DAILY 08/30/18 11/01/18 08/30/18 Acetaminophen [Arthritis Pain 650 mg PO Q6H PRN 11/01/18 11/01/18 Unknown Relief] Amitriptyline [Elavil] 10 mg PO BID 11/01/18 11/01/18 Unknown Cholecalciferol (Vitamin D3) 2,000 unit PO QDAY 11/01/18 11/01/18 Unknown [Vitamin D3 2,000 UNIT CAP] Divalproex Dr [DepaKOTE DR] 125 mg PO BID 11/01/18 11/01/18 Unknown Magnesium Hydroxide [Milk of 30 ml PO DAILY PRN 11/01/18 11/01/18 Unknown Magnesia] Oxycodone HCl [roxiCODONE] 30 mg PO Q4H PRN 11/01/18 11/01/18 Unknown Polyethylene Glycol 3350 [Miralax 17 gm PO QDAY 11/01/18 11/01/18 Unknown 3350] Previous Rx's Medication Instructions Recorded Last Taken Type glipiZIDE [Glipizide] 5 mg PO DAILY #30 tablet 09/03/18 Unknown Rx Allergies Allergy/AdvReac Type Severity Reaction Status Date / Time Penicillins Allergy Unknown Verified 07/16/17 17:29 ED Review of Systems ROS: Stated complaint: ALTERED MENTAL Other details as noted in HPI Comment: Unobtainable due to pts medical conditions ED Past Medical Hx - Past Medical History Previous Medical History?: Yes Hx Hypertension: Yes Hx Congestive Heart Failure: Yes Hx Diabetes: No Hx Arthritis: Yes Hx Seizures: Yes Hx Psychiatric Treatment: Yes (bipolar, depression) Hx Asthma: Yes - Surgical History Past Surgical History?: Yes Additional Surgical History: right leg amputation 10 years ago - Social History Smoking Status: Unknown if ever smoked Substance Use Type: None - Medications Home Medications: Home Medications Medication Instructions Recorded Confirmed Last Taken Type Atorvastatin Calcium 10 mg PO DAILY 08/30/18 11/01/18 08/30/18 History Bumetanide [Bumex 1 mg tab] 2 mg PO DAILY 08/30/18 11/01/18 08/30/18 History Carvedilol [Coreg] 25 mg PO BID 08/30/18 11/01/18 08/30/18 History Docusate Sodium [Colace CAP] 100 mg PO BID PRN 08/30/18 11/01/18 08/30/18 History Lactulose [Cephulac] 20 gm PO QHS PRN 08/30/18 11/01/18 08/30/18 History Phenytoin Sodium Extended 200 mg PO Q8HR 08/30/18 11/01/18 08/30/18 History [Dilantin] Pregabalin [Lyrica] 200 mg PO BID 08/30/18 11/01/18 08/30/18 History Rivaroxaban [Xarelto Starter Pack] 20 each PO DAILY 08/30/18 11/01/18 08/30/18 History Venlafaxine [Effexor 37.5mg tab] 75 mg PO QHS 08/30/18 11/01/18 08/30/18 History levETIRAcetam [Keppra] 1,000 mg PO BID 08/30/18 11/01/18 08/30/18 History metOLazone [Zaroxolyn] 2.5 mg PO 3XW 08/30/18 11/01/18 08/30/18 History predniSONE [Prednisone] 5 mg PO DAILY 08/30/18 11/01/18 08/30/18 History glipiZIDE [Glipizide] 5 mg PO DAILY #30 tablet 09/03/18 11/01/18 Unknown Rx Acetaminophen [Arthritis Pain 650 mg PO Q6H PRN 11/01/18 11/01/18 Unknown History Relief] Amitriptyline [Elavil] 10 mg PO BID 11/01/18 11/01/18 Unknown History Cholecalciferol (Vitamin D3) 2,000 unit PO QDAY 11/01/18 11/01/18 Unknown History [Vitamin D3 2,000 UNIT CAP] Divalproex Dr [DepaKOTE DR] 125 mg PO BID 11/01/18 11/01/18 Unknown History Magnesium Hydroxide [Milk of 30 ml PO DAILY PRN 11/01/18 11/01/18 Unknown History Magnesia] Oxycodone HCl [roxiCODONE] 30 mg PO Q4H PRN 11/01/18 11/01/18 Unknown History Polyethylene Glycol 3350 [Miralax 17 gm PO QDAY 11/01/18 11/01/18 Unknown History 3350] ED Physical Exam - General Limitations: Altered Mental Status, Physical Limitation General appearance: obese (morbid obese) - Head Head exam: Present: atraumatic - Eye Eye exam: Absent: scleral icterus - ENT ENT exam: Present: normal exam - Neck Neck exam: Absent: tenderness - Respiratory Respiratory exam: Present: normal lung sounds bilaterally. Absent: respiratory distress - Cardiovascular Cardiovascular Exam: Present: normal rhythm, bradycardia (and somewhat irregular). Absent: systolic murmur, diastolic murmur, rubs, gallop - GI/Abdominal GI/Abdominal exam: Present: soft, normal bowel sounds. Absent: distended, tenderness, guarding, rebound, rigid - Extremities Exam Extremities exam: Present: other (AKA on the right. There is a high heel ulcer without signs of superinfection and scab present on the left.) - Back Exam Back exam: Present: other (unable to visualize) - Neurological Exam Neurological exam: Present: altered, other (no gross lateralizing sign) - Psychiatric Psychiatric exam: Present: flat affect, other (smacking movements may be consistent with tardive dyskinesia) - Skin Skin exam: Present: warm, dry ED Course Vital Signs 11/01/18 11/01/18 11/01/18 08:24 08:36 09:01 Temperature 98.5 F Pulse Rate 63 53 L Respiratory 18 17 Rate Blood Pressure 125/66 125/66 127/63 O2 Sat by Pulse 98 Oximetry 11/01/18 11/01/18 11/01/18 10:01 10:13 11:00 Temperature 96.8 F L Pulse Rate 58 L 68 Respiratory 21 17 Rate Blood Pressure 134/77 136/77 O2 Sat by Pulse Oximetry 11/01/18 11/01/18 12:01 12:45 Temperature Pulse Rate 82 Respiratory 19 Rate Blood Pressure 130/97 O2 Sat by Pulse 97 Oximetry - Reevaluation(s) Reevaluation #1: IV fluids initiated. The patient remains stable. 11/01/18 13:00 Reevaluation #2: Patient with multiple defect for a long acute encephalopathy. I do not think he's had a CVA but he does have risk factors. I am uncertain as to whether he is taking Xarelto still in the detention. He will be given a lower dose of aspirin. He will be given controlled IV fluids as he has a cardiomyopathy; his BUN is a bit higher than last. His ammonia level is elevated, as well as, his calcium. These may be contributing factors. 11/01/18 13:12 11/01/18 13:14 ED Medical Decision Making - Lab Data Result diagrams: 11/01/18 08:35 11/01/18 08:35 Laboratory Results - last 24 hr 11/01/18 11/01/18 11/01/18 08:25 08:35 08:35 WBC 9.7 RBC 5.18 H Hgb 13.0 Hct 40.8 MCV 79 L MCH 25 L MCHC 32 RDW 16.9 H Plt Count 173 Lymph % (Auto) 30.6 Terrell % (Auto) 6.3 Eos % (Auto) 0.8 Baso % (Auto) 0.3 Lymph # 3.0 Terrell # 0.6 Eos # 0.1 Baso # 0.0 Seg Neutrophils % 62.0 Seg Neutrophils # 6.0 PT INR APTT Sodium 144 Potassium 3.9 Chloride 101.4 Carbon Dioxide 31 H Anion Gap 16 BUN 32 H Creatinine 1.6 H Estimated GFR 53 BUN/Creatinine Ratio 20 Glucose 89 POC Glucose 74 Lactic Acid Calcium 10.5 H Magnesium 2.40 H Total Bilirubin 0.30 Direct Bilirubin < 0.2 Indirect Bilirubin 0.1 AST 17 ALT 10 Alkaline Phosphatase 89 Ammonia Total Creatine Kinase 34 L CK-MB (CK-2) < 1.0 CK-MB (CK-2) Rel Index 2.9 Troponin T < 0.010 NT-Pro-B Natriuret Pep 247.1 Total Protein 7.3 Albumin 3.5 L Albumin/Globulin Ratio 0.9 TSH Free T4 Urine Color Urine Turbidity Urine pH Ur Specific [place] Urine Protein Urine Glucose (UA) Urine Ketones Urine Blood Urine Nitrite Urine Bilirubin Urine Urobilinogen Ur Leukocyte Esterase Urine WBC (Auto) Urine RBC (Auto) 11/01/18 11/01/18 11/01/18 08:35 09:12 09:12 WBC RBC Hgb Hct MCV MCH MCHC RDW Plt Count Lymph % (Auto) Terrell % (Auto) Eos % (Auto) Baso % (Auto) Lymph # Terrell # Eos # Baso # Seg Neutrophils % Seg Neutrophils # PT 15.2 H INR 1.13 APTT 34.9 Sodium Potassium Chloride Carbon Dioxide Anion Gap BUN Creatinine Estimated GFR BUN/Creatinine Ratio Glucose POC Glucose Lactic Acid 2.00 Calcium Magnesium Total Bilirubin Direct Bilirubin Indirect Bilirubin AST ALT Alkaline Phosphatase Ammonia 72.0 H Total Creatine Kinase CK-MB (CK-2) CK-MB (CK-2) Rel Index Troponin T NT-Pro-B Natriuret Pep Total Protein Albumin Albumin/Globulin Ratio TSH Free T4 Urine Color Urine Turbidity Urine pH Ur Specific [place] Urine Protein Urine Glucose (UA) Urine Ketones Urine Blood Urine Nitrite Urine Bilirubin Urine Urobilinogen Ur Leukocyte Esterase Urine WBC (Auto) Urine RBC (Auto) 11/01/18 11/01/18 09:12 09:27 WBC RBC Hgb Hct MCV MCH MCHC RDW Plt Count Lymph % (Auto) Terrell % (Auto) Eos % (Auto) Baso % (Auto) Lymph # Terrell # Eos # Baso # Seg Neutrophils % Seg Neutrophils # PT INR APTT Sodium Potassium Chloride Carbon Dioxide Anion Gap BUN Creatinine Estimated GFR BUN/Creatinine Ratio Glucose POC Glucose Lactic Acid Calcium Magnesium Total Bilirubin Direct Bilirubin Indirect Bilirubin AST ALT Alkaline Phosphatase Ammonia Total Creatine Kinase CK-MB (CK-2) CK-MB (CK-2) Rel Index Troponin T NT-Pro-B Natriuret Pep Total Protein Albumin Albumin/Globulin Ratio TSH 1.460 Free T4 0.82 Urine Color Yellow Urine Turbidity Clear Urine pH 6.0 Ur Specific [place] 1.019 Urine Protein <15 mg/dl Urine Glucose (UA) Neg Urine Ketones Neg Urine Blood Neg Urine Nitrite Neg Urine Bilirubin Neg Urine Urobilinogen < 2.0 Ur Leukocyte Esterase Neg Urine WBC (Auto) 1.0 Urine RBC (Auto) < 1.0 - EKG Data -: EKG Interpreted by Me Rate: bradycardia (atrial fibrillation with slow ventricular response) - EKG Data Interpretation: no acute changes, other (intraventricular conduction delay more consistent with right bundle, atrial fibrillation) Critical care attestation.: If time is entered above; I have spent that time in minutes in the direct care of this critically ill patient, excluding procedure time. ED Disposition Clinical Impression: Acute encephalopathy, Hypercalcemia, Prerenal azotemia, H/O schizophrenia, Chronic renal insufficiency, stage II (mild), Hyperammonemia Disposition: OP ADMIT IP TO THIS HOSP Is pt being admited?: Yes Does the pt Need Aspirin: Yes Condition: Stable Referrals: ROD PAUL MD [Primary Care Provider] - 3-5 Days Time of Disposition: 13:16
[2018-11-01 09:02] LABS: Basophils % (Auto) 0.3 % (0.0-1.8); Eosinophils # (Auto) 0.1 K/mm3 (0.0-0.4); Eosinophils % (Auto) 0.8 % (0.0-4.3); Hematocrit 40.8 % (35.5-45.6); Lymphocytes % (Auto) 30.6 % (13.4-35.0); Mean Corpuscular HGB Conc 32 % (32-34); Mean Corpuscular Volume 79 fl (84-94); Monocytes # (Auto) 0.6 K/mm3 (0.0-0.8); Monocytes % (Auto) 6.3 % (0.0-7.3); Platelet Count 173 K/mm3 (140-440); Red Blood Count 5.18 M/mm3 (3.65-5.03); Red Cell Distribution Width 16.9 % (13.2-15.2)
[2018-11-01 09:11] LABS: INR 1.13 (0.87-1.13)
[2018-11-01 09:12] LABS: Partial Thromboplastin Time 34.9 Sec. (24.2-36.6)
[2018-11-01 09:28] LABS: Alanine Aminotransferase 10 units/L (7-56); Albumin 3.5 g/dL (3.9-5); BUN/Creatinine Ratio 20; Blood Urea Nitrogen 32 mg/dL (9-20); Calcium 10.5 mg/dL (8.4-10.2); Hemolysis Index 40
[2018-11-01 09:35] LABS: Bilirubin,Direct < 0.2 mg/dL (0-0.2); Creatine Kinase MB < 1.0 ng/mL (0.0-4.0)
[2018-11-01 09:49] LABS: Bilirubin,Urine NEG (Negative); Blood,Urine NEG (Negative); Color,Urine Yellow (Yellow); Protein,Urine <15 mg/dL mg/dL (Negative); RBC,Urine < 1.0 /HPF (0.0-6.0); Urobilinogen,Urine < 2.0 mg/dL (<2.0)
[2018-11-01 10:05] LABS: Free T4 (Free Thyroxine) 0.82 ng/dL (0.76-1.46)
--- NOTE | 2018-11-01 12:14 | XRay Report ---
AP CHEST: HISTORY: Hypertension Compared to 08/30/18. There is poor inspiration. Mild cardiomegaly and pulmonary venous congestion are suspected. The lungs are grossly clear. No large pleural effusion, infiltrate or pneumothorax. IMPRESSION: Poor inspiration. Mild cardiomegaly and central pulmonary venous congestion are suspected.
[2018-11-01] MEDS ORDERED: NACL 0.9% 1000 ML 1,000 ML IV ONE (12:57)
[2018-11-01] MEDS ORDERED: BABY ASPIRIN PO ONE (13:16)
--- NOTE | 2018-11-01 14:07 | Cat Scan Report ---
CT HEAD WITHOUT CONTRAST: HISTORY: Altered mental status. TECHNIQUE: Sequential 2.5mm CT images. COMPARISON: 08/30/18. FINDINGS: Cerebral Parenchyma: Within normal limits. Cerebellum: Within normal limits. Brainstem: Within normal limits. Ventricles: Normal. Sella: Normal. Extra-axial spaces: Normal. Basal Cisterns: Normal. Intracranial Hemorrhage: None. Midline Shift: None. Calvarium: Normal. Sinuses: Normal. Mastoid Air Cells: Normal. Visualized Orbits: Normal. IMPRESSION: Cranial CT scan within normal limits.
--- NOTE | 2018-11-01 22:51 | History and Physical Report ---
History of Present Illness Date of examination: 11/01/18 Date of admission: 11/01/18 13:18 Chief complaint: Altered mental status for 1 day History of present illness: 68-year-old morbidly obese male sent from [facility] by [facility] for altered mental status. At the time of arrival patient is alert and oriented 1 and blood glucose of 74. Patient was here in August and was discharged after being treated for acute kidney injury toxic metabolic encephalopathy diabetes and hypertension. Old chart reviewed. No fever or chills. Patient has a tende ncy altered mental status frequently. His ammonia levels run high. Patient has a history of hypoventilation secondary to his morbid obesity. (Previous Hospitalization from August 2018 Condition: Fair Hospital course: Patient is 68yo Detention Facility Resident with morbid obesity, atrial fibrillation, on Xarelto,diabetes, CHF, seizure disorder, chronic pain syndrome, schizophrenia presents to ED for evaluation. Patient presented with altered mental status, confusion, and worsening phantom limb pain below his right stump. He was seen and evaluated in ED and found to have, SIRS, Encephalopathy, Obesity Hypoventilation Syndrome, Acidosis. He was started on Bipap, admitted to Telemetry. Patient had bacteremia, therefore ID consulted. Blood cultures grew diptheroids and Coag neg staph. ID Physician determined this was due to contamination and discontinued empiric Antibiotic. Encephalopathy improved, and he was discharged to [facility] on 09/03/18. Total time spent on discharge, 32 mins Disposition: [id number]/[place]-03 [facility] - Discharge Diagnoses (1) Acute kidney injury Status: Acute (2) Diabetes Status: Acute (3) HTN (hypertension) Status: Acute Qualifiers: Hypertension type: essential hypertension Qualified Code(s): I10 - Essential (primary) hypertension (4) Toxic metabolic encephalopathy Status: Acute (5) Hypotension Status: Acute ) Past Medical History Previous Medical History?: Yes Hypertension: Yes Congestive Heart Failure: Yes Diabetes: No Arthritis: Yes Seizures: Yes Psychiatric Treatment: Yes (bipolar, depression) Asthma: Yes Surgical History Past Surgical History?: Yes Additional Surgical History: right leg amputation 10 years ago Social History Smoking Status: Unknown if ever smoked Substance Use Type: None Family history Htn Medications Home Medications: Home Medications Medication Instructions Recorded Confirmed Last Taken Type Atorvastatin Calcium 10 mg PO DAILY 08/30/18 11/01/18 08/30/18 History Bumetanide [Bumex 1 mg tab] 2 mg PO DAILY 08/30/18 11/01/18 08/30/18 History Carvedilol [Coreg] 25 mg PO BID 08/30/18 11/01/18 08/30/18 History Docusate Sodium [Colace CAP] 100 mg PO BID PRN 08/30/18 11/01/18 08/30/18 History Lactulose [Cephulac] 20 gm PO QHS PRN 08/30/18 11/01/18 08/30/18 History Phenytoin Sodium Extended 200 mg PO Q8HR 08/30/18 11/01/18 08/30/18 History [Dilantin] Pregabalin [Lyrica] 200 mg PO BID 08/30/18 11/01/18 08/30/18 History Rivaroxaban [Xarelto Starter Pack] 20 each PO DAILY 08/30/18 11/01/18 08/30/18 History Venlafaxine [Effexor 37.5mg tab] 75 mg PO QHS 08/30/18 11/01/18 08/30/18 History levETIRAcetam [Keppra] 1,000 mg PO BID 08/30/18 11/01/18 08/30/18 History metOLazone [Zaroxolyn] 2.5 mg PO 3XW 08/30/18 11/01/18 08/30/18 History predniSONE [Prednisone] 5 mg PO DAILY 08/30/18 11/01/18 08/30/18 History glipiZIDE [Glipizide] 5 mg PO DAILY #30 tablet 09/03/18 11/01/18 Unknown Rx Acetaminophen [Arthritis Pain 650 mg PO Q6H PRN 11/01/18 11/01/18 Unknown History Relief] Amitriptyline [Elavil] 10 mg PO BID 11/01/18 11/01/18 Unknown History Cholecalciferol (Vitamin D3) 2,000 unit PO QDAY 11/01/18 11/01/18 Unknown History [Vitamin D3 2,000 UNIT CAP] Divalproex Dr [DepLillian APARICIO] 125 mg PO BID 11/01/18 11/01/18 Unknown History Magnesium Hydroxide [Milk of 30 ml PO DAILY PRN 11/01/18 11/01/18 Unknown History Magnesia] Oxycodone HCl [roxiCODONE] 30 mg PO Q4H PRN 11/01/18 11/01/18 Unknown History Polyethylene Glycol 3350 [Miralax 17 gm PO QDAY 11/01/18 11/01/18 Unknown History 3350] Review of Systems ROS: Stated complaint: ALTERED MENTAL Other details as noted in HPI Comment: Unobtainable due to pts medical conditions Medications and Allergies Allergies Allergy/AdvReac Type Severity Reaction Status Date / Time Penicillins Allergy Unknown Verified 07/16/17 17:29 Home Medications Medication Instructions Recorded Confirmed Last Taken Type Atorvastatin Calcium 10 mg PO DAILY 08/30/18 11/01/18 08/30/18 History Bumetanide [Bumex 1 mg tab] 2 mg PO DAILY 08/30/18 11/01/18 08/30/18 History Carvedilol [Coreg] 25 mg PO BID 08/30/18 11/01/18 08/30/18 History Docusate Sodium [Colace CAP] 100 mg PO BID PRN 08/30/18 11/01/18 08/30/18 History Lactulose [Cephulac] 20 gm PO QHS PRN 08/30/18 11/01/18 08/30/18 History Phenytoin Sodium Extended 200 mg PO Q8HR 08/30/18 11/01/18 08/30/18 History [Dilantin] Pregabalin [Lyrica] 200 mg PO BID 08/30/18 11/01/18 08/30/18 History Rivaroxaban [Xarelto Starter Pack] 20 each PO DAILY 08/30/18 11/01/18 08/30/18 History Venlafaxine [Effexor 37.5mg tab] 75 mg PO QHS 08/30/18 11/01/18 08/30/18 History levETIRAcetam [Keppra] 1,000 mg PO BID 08/30/18 11/01/18 08/30/18 History metOLazone [Zaroxolyn] 2.5 mg PO 3XW 08/30/18 11/01/18 08/30/18 History predniSONE [Prednisone] 5 mg PO DAILY 08/30/18 11/01/18 08/30/18 History glipiZIDE [Glipizide] 5 mg PO DAILY #30 tablet 09/03/18 11/01/18 Unknown Rx Acetaminophen [Arthritis Pain 650 mg PO Q6H PRN 11/01/18 11/01/18 Unknown History Relief] Amitriptyline [Elavil] 10 mg PO BID 11/01/18 11/01/18 Unknown History Cholecalciferol (Vitamin D3) 2,000 unit PO QDAY 11/01/18 11/01/18 Unknown History [Vitamin D3 2,000 UNIT CAP] Divalproex Dr [DepaKOTE DR] 125 mg PO BID 11/01/18 11/01/18 Unknown History Magnesium Hydroxide [Milk of 30 ml PO DAILY PRN 11/01/18 11/01/18 Unknown History Magnesia] Oxycodone HCl [roxiCODONE] 30 mg PO Q4H PRN 11/01/18 11/01/18 Unknown History Polyethylene Glycol 3350 [Miralax 17 gm PO QDAY 11/01/18 11/01/18 Unknown History 3350] Exam - Physical Exam Narrative exam: Lying in bed-lethargic - Constitutional Vitals: Temp Pulse Resp BP Pulse Ox 97.6 F 66 22 137/81 99 11/01/18 20:12 11/01/18 20:20 11/01/18 20:12 11/01/18 20:12 11/01/18 20:20 General appearance: Present: mild distress, well-nourished - EENT Eyes: Present: PERRL ENT: hearing intact, clear oral mucosa - Neck Neck: Present: supple, normal ROM - Respiratory Respiratory effort: normal Respiratory: bilateral: CTA, diminished - Cardiovascular Heart rate: 58 Rhythm: irregularly irregular Heart Sounds: Present: S1 & S2. Absent: rub, click - Extremities Extremities: no ischemia, pulses intact, pulses symmetrical, No edema Peripheral Pulses: within normal limits - Abdominal General gastrointestinal: Present: soft, non-tender, non-distended, normal bowel sounds Male genitourinary: Present: normal - Rectal Rectal Exam: deferred - Integumentary Integumentary: Present: clear, warm, dry - Musculoskeletal Musculoskeletal: strength equal bilaterally, generalized weakness - Psychiatric Psychiatric: other (lethargic and altered, alert 1) - Neurologic Neurologic: CNII-XII intact, moves all extremities Results - Labs CBC & Chem 7: 11/01/18 08:35 11/01/18 08:35 Labs: Laboratory Last Values WBC 9.7 K/mm3 (4.5-11.0) 11/01/18 08:35 RBC 5.18 M/mm3 (3.65-5.03) H 11/01/18 08:35 Hgb 13.0 gm/dl (11.8-15.2) 11/01/18 08:35 Hct 40.8 % (35.5-45.6) 11/01/18 08:35 MCV 79 fl (84-94) L 11/01/18 08:35 MCH 25 pg (28-32) L 11/01/18 08:35 MCHC 32 % (32-34) 11/01/18 08:35 RDW 16.9 % (13.2-15.2) H 11/01/18 08:35 Plt Count 173 K/mm3 (140-440) 11/01/18 08:35 Lymph % (Auto) 30.6 % (13.4-35.0) 11/01/18 08:35 [place] % (Auto) 6.3 % (0.0-7.3) 11/01/18 08:35 Eos % (Auto) 0.8 % (0.0-4.3) 11/01/18 08:35 Baso % (Auto) 0.3 % (0.0-1.8) 11/01/18 08:35 Lymph # 3.0 K/mm3 (1.2-5.4) 11/01/18 08:35 [place] # 0.6 K/mm3 (0.0-0.8) 11/01/18 08:35 Eos # 0.1 K/mm3 (0.0-0.4) 11/01/18 08:35 Baso # 0.0 K/mm3 (0.0-0.1) 11/01/18 08:35 Seg Neutrophils % 62.0 % (40.0-70.0) 11/01/18 08:35 Seg Neutrophils # 6.0 K/mm3 (1.8-7.7) 11/01/18 08:35 PT 15.2 Sec. (12.2-14.9) H 11/01/18 08:35 INR 1.13 (0.87-1.13) 11/01/18 08:35 APTT 34.9 Sec. (24.2-36.6) 11/01/18 08:35 POC ABG pH 7.427 (7.35-7.45) 11/01/18 10:37 POC ABG pCO2 46.3 (35-45) H 11/01/18 10:37 POC ABG pO2 72 (80-105) L 11/01/18 10:37 POC ABG HCO3 30.5 (22-26 mml/L) 11/01/18 10:37 POC ABG Total CO2 32 (23-27mmol/L) 11/01/18 10:37 POC ABG O2 Sat 95 11/01/18 10:37 POC ABG Base Excess 6 ((-2) - (+3)mmol/L) 11/01/18 10:37 21 % 11/01/18 10:37 Sodium 144 mmol/L (137-145) 11/01/18 08:35 Potassium 3.9 mmol/L (3.6-5.0) 11/01/18 08:35 Chloride 101.4 mmol/L (98-107) 11/01/18 08:35 Carbon Dioxide 31 mmol/L (22-30) H 11/01/18 08:35 16 mmol/L 11/01/18 08:35 BUN 32 mg/dL (9-20) H 11/01/18 08:35 1.6 mg/dL (0.8-1.5) H 11/01/18 08:35 Estimated GFR 53 ml/min 11/01/18 08:35 20 % 11/01/18 08:35 Glucose 89 mg/dL (75-100) 11/01/18 08:35 POC Glucose 76 (70-105) 11/01/18 16:45 Lactic Acid 2.00 mmol/L (0.7-2.0) 11/01/18 09:12 Calcium 10.5 mg/dL (8.4-10.2) H 11/01/18 08:35 Magnesium 2.40 mg/dL (1.7-2.3) H 11/01/18 08:35 0.30 mg/dL (0.1-1.2) 11/01/18 08:35 < 0.2 mg/dL (0-0.2) 11/01/18 08:35 0.1 mg/dL 11/01/18 08:35 AST 17 units/L (5-40) 11/01/18 08:35 ALT 10 units/L (7-56) 11/01/18 08:35 89 units/L (35-129) 11/01/18 08:35 72.0 umol/L (25-60) H 11/01/18 09:12 34 units/L (55-170) L 11/01/18 08:35 CK-MB (CK-2) < 1.0 ng/mL (0.0-4.0) 11/01/18 08:35 CK-MB (CK-2) Rel Index 2.9 (0-4) 11/01/18 08:35 < 0.010 ng/mL (0.00-0.029) 11/01/18 08:35 NT-Pro-B Natriuret Pep 247.1 pg/mL (0-900) 11/01/18 08:35 7.3 g/dL (6.3-8.2) 11/01/18 08:35 3.5 g/dL (3.9-5) L 11/01/18 08:35 0.9 % 11/01/18 08:35 TSH 1.460 mlU/mL (0.270-4.200) 11/01/18 09:12 Free T4 0.82 ng/dL (0.76-1.46) 11/01/18 09:12 Yellow (Yellow) 11/01/18 09:27 Clear (Clear) 11/01/18 09:27 6.0 (5.0-7.0) 11/01/18 09:27 Ur Specific [place] 1.019 (1.003-1.030) 11/01/18 09:27 <15 mg/dl mg/dL (Negative) 11/01/18 09:27 Neg mg/dL (Negative) 11/01/18 09:27 Neg mg/dL (Negative) 11/01/18 09:27 Neg (Negative) 11/01/18 09:27 Neg (Negative) 11/01/18 09:27 Neg (Negative) 11/01/18 09:27 < 2.0 mg/dL (<2.0) 11/01/18 09:27 Ur Leukocyte Esterase Neg (Negative) 11/01/18 09:27 1.0 /HPF (0.0-6.0) 11/01/18 09:27 < 1.0 /HPF (0.0-6.0) 11/01/18 09:27 Short CBC 11/01/18 Range/Units 08:35 WBC 9.7 (4.5-11.0) K/mm3 Hgb 13.0 (11.8-15.2) gm/dl Hct 40.8 (35.5-45.6) % Plt Count 173 (140-440) K/mm3 BMP 11/01/18 08:35 Sodium 144 Potassium 3.9 Chloride 101.4 Carbon Dioxide 31 H BUN 32 H Creatinine 1.6 H Glucose 89 Calcium 10.5 H Cardiac Enzymes 11/01/18 Range/Units 08:35 Total Creatine Kinase 34 L (55-170) units/L CK-MB (CK-2) < 1.0 (0.0-4.0) ng/mL Troponin T < 0.010 (0.00-0.029) ng/mL Liver Function 11/01/18 Range/Units 08:35 Total Bilirubin 0.30 (0.1-1.2) mg/dL Direct Bilirubin < 0.2 (0-0.2) mg/dL AST 17 (5-40) units/L ALT 10 (7-56) units/L Alkaline Phosphatase 89 (35-129) units/L Albumin 3.5 L (3.9-5) g/dL Urine 11/01/18 Range/Units 09:27 Urine Color Yellow (Yellow) Urine pH 6.0 (5.0-7.0) Ur Specific [place] 1.019 (1.003-1.030) Urine Protein <15 mg/dl (Negative) mg/dL Urine Glucose (UA) Neg (Negative) mg/dL - Imaging and Cardiology EKG: report reviewed (atrial fibrillation, heart rate of 58/m) Imaging and Cardiology: Chest x-ray IMPRESSION: Poor inspiration. Mild cardiomegaly and central pulmonary venous congestion are suspected. IMPRESSION: Cranial CT scan within normal limits. Assessment and Plan Advance Directives: Yes (full code) VTE prophylaxis?: Chemical Plan of care discussed with patient/family: Yes - Patient Problems (1) Encephalopathy acute Current Visit: Yes Status: Acute Plan to address problem: Problem list secondary to hyperammonemia Lactulose ordered Patient may have hepatic failure Also hypoventilation Patient has polypharmacy Phenytoin stopped Lyrica decreased from 200 twice a day 200 twice a day Oxycodone on hold Will defer to primary team regarding restarting the oxycodone and phenytoin (2) Acute kidney injury Current Visit: Yes Status: Acute Plan to address problem: IV fluids initiated (3) Hyperammonemia Current Visit: Yes Status: Chronic Plan to address problem: On lactulose (4) Atrial fibrillation Current Visit: Yes Status: Chronic Qualifiers: Atrial fibrillation type: chronic Qualified Code(s): I48.2 - Chronic atrial fibrillation Plan to address problem: Continue Xarelto (5) CHF (congestive heart failure) Current Visit: Yes Status: Chronic Qualifiers: Heart failure type: combined systolic and diastolic Plan to address problem: Continue Bumex (6) Hypertension Current Visit: Yes Status: Chronic Qualifiers: Hypertension type: essential hypertension Qualified Code(s): I10 - Essential (primary) hypertension Plan to address problem: Continue antihypertensive Check blood pressure every shift (7) Peripheral neuropathy Current Visit: Yes Status: Chronic Qualifiers: Peripheral neuropathy type: polyneuropathy, unspecified Qualified Code(s): G62.9 - Polyneuropathy, unspecified Plan to address problem: Continue Lyrica 200 twice a day (8) Seizure disorder Current Visit: Yes Status: Chronic Plan to address problem: Continue Keppra thousand milligrams twice a day (9) Vitamin D deficiency Current Visit: Yes Status: Chronic Plan to address problem: Continue vitamin D (10) Type 2 diabetes mellitus Current Visit: Yes Status: Chronic Qualifiers: 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
[2018-11-01] MEDS ORDERED: ACETAMINOPHEN 650 MG PO PRN (22:59)
[2018-11-01] MEDS ORDERED: COLACE PO PRN (22:59)
[2018-11-01] MEDS ORDERED: NON-FORMULARY (Pregabalin [Lyrica] 100 MG) PO SCH (23:00)
[2018-11-02] MEDS: KEPPRA PO SCH ×3 (01:30→21:38)
[2018-11-02] MEDS: COREG PO SCH ×3 (01:31→21:39)
[2018-11-02] MEDS: CEPHULAC PO SCH ×3 (01:32→21:39)
[2018-11-02] MEDS: LYRICA PO SCH ×6 (01:46→21:38)
[2018-11-02] MEDS: TYLENOL PO PRN ×2 (01:47→18:37)
[2018-11-02] MEDS: ELAVIL PO SCH ×3 (01:47→21:38)
[2018-11-02] MEDS: HumaLOG SUB-Q SCH ×4 (08:14→21:49)
[2018-11-02] MEDS: GLUCOTROL PO SCH (09:17)
[2018-11-02] MEDS: VITAMIN D3 PO SCH (09:17)
[2018-11-02] MEDS: DELTASONE PO SCH (09:18)
[2018-11-02] MEDS: MIRALAX 3350 PO SCH (09:22)
[2018-11-02] MEDS ORDERED: BUMEX PO SCH (10:00)
[2018-11-02] MEDS ORDERED: NON-FORMULARY (Cholecalciferol (Vitamin D3) [Vitamin D3 2,000 Unit Cap] 2,000 UNIT) PO SCH (10:00)
[2018-11-02] MEDS ORDERED: RIVAROXABAN PO SCH (10:00)
[2018-11-02] MEDS ORDERED: LASIX IV ONE ×2 (11:00→17:00)
[2018-11-02] MEDS ORDERED: PROVENTIL IH PRN (12:00)
--- NOTE | 2018-11-02 14:03 | Progress Note ---
Assessment and Plan Assessment and plan: 68-year-old morbidly obese male sent from [facility] by [facility] for altered mental status. Atrial fibrillation on xarelto, CHF, Seizure disorder, chronic pain syndrom, schiozophrenia. At the time of arrival patient is alert and oriented 1 and blood glucose of 74. Patient was here in August and was discharged after being treated for acute kidney injury toxic metabolic encephalopathy diabetes and hypertension. Old chart reviewed. No fever or chills. Patient has a tendency altered mental status frequently. His ammonia levels run high. Patient has a history of hypoventilation secondary to his morbid obesity. CXR:Poor inspiration. Mild cardiomegaly and central pulmonary venous congestion are suspected. CT HEAD: Cranial CT scan within normal limits. EKG: Afib Acute Metabolic Encephalopathy SALUD on CKD Secondary to vasomotor nephropathy Hypoxic respiratory failure- PO2 70 ON ABG Hyperammonemia Atrial fibrillation Acute on chronic systolic congestive heart failure Peripheral Neuropathy Seizure disorder Vitamin D deficiency Type 2 DM Atypical Chest Pain Hypercalcemia Plan: Continue supportive care Check TFT Check EEG Neurology consult Psych consult for med management Continue anticoagulation Give a dose of IV lasix, hold bumex, will restart if BP remains stable. Outpatient stress test. ARB HELD SECONDARY TO SALUD Continue lactulose and as adjusted to BID will change on home does Continue to hold Oxycodone, and phenytonin till Neurology eval Lyrica decreased to 200mg daily from twice a day Continue Keppra Continue glipized and coverage Fall precautions dvt/gi PROPHY History Interval history: Patient seen and examined this morning complains of mild shortness of breath and some reproducible left sided chest pain. Otherwise no new complaints. He tells me that he came to the hospital because he did not know he was in his with him for his daughter to bring in the hands ID card so that he could see if he is who he is, he said that with a laugh. Hospitalist Physical - Physical exam Narrative exam: VITAL SIGNS: Reviewed. GENERAL: The patient appeared well nourished and normally developed, Vital signs as documented. HEAD: No signs of head trauma. EYES: Pupils are equal. Extraocular motions intact. EARS: Hearing grossly intact. MOUTH: Oropharynx is normal. NECK: No adenopathy, no JVD. Mildly tender on the right side. CHEST: Chest with clear breath sounds bilaterally. No wheezes, rales, or rhonchi. CARDIAC: Regular rate and rhythm. S1 and S2, without murmurs, gallops, or rubs. VASCULAR: No Edema. Peripheral pulses normal and equal in all extremities. ABDOMEN: Soft, non tender and non distended. No rebound or guarding, and no masses palpated. Bowel Sounds normal. MUSCULOSKELETAL: Good range of motion of all major joints. Extremities without clubbing, cyanosis or edema. NEUROLOGIC EXAM: Alert and oriented x 3 No focal sensory or strength deficits. Speech normal. Follows commands. PSYCHIATRIC: Mood normal. SKIN: No rash or lesions. - Constitutional Vitals: Temp Pulse Resp BP Pulse Ox 98.5 F 77 18 107/43 98 11/02/18 07:14 11/02/18 09:19 11/02/18 07:14 11/02/18 09:19 11/02/18 07:14 General appearance: Present: mild distress, well-nourished Results - Labs CBC & Chem 7: 11/01/18 08:35 11/01/18 08:35 Labs: Laboratory Last Values WBC 9.7 K/mm3 (4.5-11.0) 11/01/18 08:35 RBC 5.18 M/mm3 (3.65-5.03) H 11/01/18 08:35 Hgb 13.0 gm/dl (11.8-15.2) 11/01/18 08:35 Hct 40.8 % (35.5-45.6) 11/01/18 08:35 MCV 79 fl (84-94) L 11/01/18 08:35 MCH 25 pg (28-32) L 11/01/18 08:35 MCHC 32 % (32-34) 11/01/18 08:35 RDW 16.9 % (13.2-15.2) H 11/01/18 08:35 Plt Count 173 K/mm3 (140-440) 11/01/18 08:35 Lymph % (Auto) 30.6 % (13.4-35.0) 11/01/18 08:35 [place] % (Auto) 6.3 % (0.0-7.3) 11/01/18 08:35 Eos % (Auto) 0.8 % (0.0-4.3) 11/01/18 08:35 Baso % (Auto) 0.3 % (0.0-1.8) 11/01/18 08:35 Lymph # 3.0 K/mm3 (1.2-5.4) 11/01/18 08:35 [place] # 0.6 K/mm3 (0.0-0.8) 11/01/18 08:35 Eos # 0.1 K/mm3 (0.0-0.4) 11/01/18 08:35 Baso # 0.0 K/mm3 (0.0-0.1) 11/01/18 08:35 Seg Neutrophils % 62.0 % (40.0-70.0) 11/01/18 08:35 Seg Neutrophils # 6.0 K/mm3 (1.8-7.7) 11/01/18 08:35 PT 15.2 Sec. (12.2-14.9) H 11/01/18 08:35 INR 1.13 (0.87-1.13) 11/01/18 08:35 APTT 34.9 Sec. (24.2-36.6) 11/01/18 08:35 POC ABG pH 7.427 (7.35-7.45) 11/01/18 10:37 POC ABG pCO2 46.3 (35-45) H 11/01/18 10:37 POC ABG pO2 72 (80-105) L 11/01/18 10:37 POC ABG HCO3 30.5 (22-26 mml/L) 11/01/18 10:37 POC ABG Total CO2 32 (23-27mmol/L) 11/01/18 10:37 POC ABG O2 Sat 95 11/01/18 10:37 POC ABG Base Excess 6 ((-2) - (+3)mmol/L) 11/01/18 10:37 21 % 11/01/18 10:37 Sodium 144 mmol/L (137-145) 11/01/18 08:35 Potassium 3.9 mmol/L (3.6-5.0) 11/01/18 08:35 Chloride 101.4 mmol/L (98-107) 11/01/18 08:35 Carbon Dioxide 31 mmol/L (22-30) H 11/01/18 08:35 16 mmol/L 11/01/18 08:35 BUN 32 mg/dL (9-20) H 11/01/18 08:35 1.6 mg/dL (0.8-1.5) H 11/01/18 08:35 Estimated GFR 53 ml/min 11/01/18 08:35 20 % 11/01/18 08:35 Glucose 89 mg/dL (75-100) 11/01/18 08:35 POC Glucose 119 (70-105) H 11/02/18 11:31 5.3 % (4-6) 11/02/18 05:10 Lactic Acid 2.00 mmol/L (0.7-2.0) 11/01/18 09:12 Calcium 10.6 mg/dL (8.4-10.2) H 11/02/18 10:48 Magnesium 2.40 mg/dL (1.7-2.3) H 11/01/18 08:35 0.30 mg/dL (0.1-1.2) 11/01/18 08:35 < 0.2 mg/dL (0-0.2) 11/01/18 08:35 0.1 mg/dL 11/01/18 08:35 AST 17 units/L (5-40) 11/01/18 08:35 ALT 10 units/L (7-56) 11/01/18 08:35 89 units/L (35-129) 11/01/18 08:35 72.0 umol/L (25-60) H 11/01/18 09:12 34 units/L (55-170) L 11/01/18 08:35 CK-MB (CK-2) < 1.0 ng/mL (0.0-4.0) 11/01/18 08:35 CK-MB (CK-2) Rel Index 2.9 (0-4) 11/01/18 08:35 < 0.010 ng/mL (0.00-0.029) 11/01/18 08:35 NT-Pro-B Natriuret Pep 247.1 pg/mL (0-900) 11/01/18 08:35 7.3 g/dL (6.3-8.2) 11/01/18 08:35 3.5 g/dL (3.9-5) L 11/01/18 08:35 0.9 % 11/01/18 08:35 TSH 1.460 mlU/mL (0.270-4.200) 11/01/18 09:12 Free T4 0.82 ng/dL (0.76-1.46) 11/01/18 09:12 Yellow (Yellow) 11/01/18 09:27 Clear (Clear) 11/01/18 09:27 6.0 (5.0-7.0) 11/01/18 09:27 Ur Specific [place] 1.019 (1.003-1.030) 11/01/18 09:27 <15 mg/dl mg/dL (Negative) 11/01/18 09:27 Neg mg/dL (Negative) 11/01/18 09:27 Neg mg/dL (Negative) 11/01/18 09:27 Neg (Negative) 11/01/18 09:27 Neg (Negative) 11/01/18 09:27 Neg (Negative) 11/01/18 09:27 < 2.0 mg/dL (<2.0) 11/01/18 09:27 Ur Leukocyte Esterase Neg (Negative) 11/01/18 09:27 1.0 /HPF (0.0-6.0) 11/01/18 09:27 < 1.0 /HPF (0.0-6.0) 11/01/18 09:27 - Imaging and Cardiology Chest x-ray: image reviewed Active Medications - Current Medications Current Medications: Generic Name Dose Route Start Last Admin Trade Name Freq PRN Reason Stop Dose Admin Acetaminophen 650 mg 11/02/18 01:23 11/02/18 01:47 Tylenol PO 650 mg Q6H PRN Administration Pain, Mild (1-3) Albuterol 2.5 mg 11/02/18 12:00 Proventil IH Q4HRT PRN Shortness Of Breath Amitriptyline HCl 10 mg 11/01/18 23:00 11/02/18 09:17 Elavil PO 10 mg BID MELINA Administration Atorvastatin Calcium 10 mg 11/02/18 10:00 11/02/18 09:19 Lipitor PO 10 mg DAILY MELINA Administration Carvedilol 25 mg 11/01/18 23:00 11/02/18 09:19 Coreg PO Not Given BID [facility] Cholecalciferol 2,000 unit 11/02/18 10:00 11/02/18 09:17 Vitamin D3 PO 2,000 unit DAILY MELINA Administration Divalproex Sodium 125 mg 11/01/18 23:00 11/02/18 09:[address] PO 125 mg BID MELINA Administration Docusate Sodium 100 mg 11/01/18 22:59 11/02/18 01:31 Colace PO 100 mg BID PRN Administration Constipation Glipizide 5 mg 11/02/18 08:00 11/02/18 09:17 Glucotrol PO 5 mg QDDIAB MELINA Administration Insulin Human Lispro 0 unit 11/02/18 07:30 11/02/18 08:14 Humalog SUB-Q Not Given ACHS [facility] Protocol Lactulose 20 gm 11/01/18 23:45 11/02/18 09:17 Cephulac PO 20 gm BID MELINA Administration Levetiracetam 1,000 mg 11/01/18 23:00 11/02/18 09:17 Keppra PO 1,000 mg BID MELINA Administration Metolazone 2.5 mg 11/03/18 10:00 Zaroxolyn PO MoWeFr [facility] Polyethylene Glycol 17 gm 11/02/18 10:00 11/02/18 09:22 Miralax 3350 PO 17 gm QDAY MELINA Administration Prednisone 5 mg 11/02/18 10:00 11/02/18 09:18 Deltasone PO 5 mg DAILY MELINA Administration Pregabalin 25 mg 11/02/18 01:30 11/02/18 09:18 Lyrica PO 25 mg BID MELINA Administration Pregabalin 75 mg 11/02/18 01:30 11/02/18 09:18 Lyrica PO 75 mg BID MELINA Administration Rivaroxaban 20 mg 11/02/18 17:00 Xarelto PO QPMDIAB MELINA Venlafaxine HCl 75 mg 11/02/18 22:00 Effexor Xr PO QHS [facility]
[2018-11-02] MEDS: XARELTO PO SCH (16:12)
[2018-11-02] MEDS ORDERED: UNASYN/NS 1.5 GM/50 ML 1.5 GM/50 ML BAG IV SCH (18:00)
[2018-11-02] MEDS: ZITHROMAX 500 MG in NACL 0.9% 250ML 250 ML IV SCH (18:31)
[2018-11-02] MEDS: NORCO 10/325 PO PRN (21:39)
[2018-11-02] MEDS: FLOMAX PO SCH (21:39)
[2018-11-02] MEDS: EFFEXOR XR PO SCH (21:39)
[2018-11-02] MEDS ORDERED: EFFEXOR PO SCH (22:00)
[2018-11-03] MEDS: NORCO 10/325 PO PRN ×3 (04:52→15:36)
[2018-11-03 05:40] LABS: Hematocrit 35.3 % (35.5-45.6); Hemoglobin 11.2 gm/dl (11.8-15.2); Mean Corpuscular HGB Conc 32 % (32-34); Mean Corpuscular Volume 79 fl (84-94); Platelet Count 122 K/mm3 (140-440); Red Blood Count 4.47 M/mm3 (3.65-5.03); Red Cell Distribution Width 16.3 % (13.2-15.2)
[2018-11-03 05:58] LABS: Alanine Aminotransferase 12 units/L (7-56); BUN/Creatinine Ratio 22; Blood Urea Nitrogen 31 mg/dL (9-20); Calcium 10.3 mg/dL (8.4-10.2); Hemolysis Index 0
[2018-11-03] MEDS: VITAMIN D3 PO SCH (09:24)
[2018-11-03] MEDS: ZITHROMAX 500 MG in NACL 0.9% 250ML 250 ML IV SCH (09:24)
[2018-11-03] MEDS: KEPPRA PO SCH ×2 (09:24→22:41)
[2018-11-03] MEDS: MIRALAX 3350 PO SCH (09:24)
[2018-11-03] MEDS: DELTASONE PO SCH (09:24)
[2018-11-03] MEDS: LYRICA PO SCH ×4 (09:25→22:41)
[2018-11-03] MEDS: GLUCOTROL PO SCH (09:25)
[2018-11-03] MEDS: ELAVIL PO SCH ×2 (09:25→22:44)
[2018-11-03] MEDS: ZAROXOLYN PO SCH (09:25)
[2018-11-03] MEDS: COREG PO SCH ×2 (09:26→22:41)
[2018-11-03] MEDS: HumaLOG SUB-Q SCH ×4 (09:27→22:45)
[2018-11-03] MEDS: CEPHULAC PO SCH ×2 (09:46→22:45)
[2018-11-03] MEDS: XARELTO PO SCH (17:52)
--- NOTE | 2018-11-03 20:32 | Progress Note ---
Assessment and Plan - Patient Problems (1) Encephalopathy acute Current Visit: Yes Status: Acute Plan to address problem: Problem list secondary to hyperammonemia Lactulose ordered Patient may have hepatic failure Also hypoventilation Patient has polypharmacy Phenytoin stopped Lyrica decreased from 200 twice a day 200 twice a day Oxycodone on hold Improved (2) Acute kidney injury Current Visit: Yes Status: Acute Plan to address problem: IV fluids initiated Improved (3) Hyperammonemia Current Visit: Yes Status: Chronic Plan to address problem: On lactulose (4) Atrial fibrillation Current Visit: Yes Status: Chronic Qualifiers: Atrial fibrillation type: chronic Qualified Code(s): I48.2 - Chronic atrial fibrillation Plan to address problem: Continue Xarelto (5) CHF (congestive heart failure) Current Visit: Yes Status: Chronic Qualifiers: Heart failure type: combined systolic and diastolic Plan to address problem: Continue Bumex (6) Hypertension Current Visit: Yes Status: Chronic Qualifiers: Hypertension type: essential hypertension Qualified Code(s): I10 - Essential (primary) hypertension Plan to address problem: Continue antihypertensive Check blood pressure every shift (7) Peripheral neuropathy Current Visit: Yes Status: Chronic Qualifiers: Peripheral neuropathy type: polyneuropathy, unspecified Qualified Code(s): G62.9 - Polyneuropathy, unspecified Plan to address problem: Continue Lyrica 100 twice a day (8) Seizure disorder Current Visit: Yes Status: Chronic Plan to address problem: Continue Keppra thousand milligrams twice a day (9) Vitamin D deficiency Current Visit: Yes Status: Chronic Plan to address problem: Continue vitamin D (10) Type 2 diabetes mellitus Current Visit: Yes Status: Chronic Qualifiers: Diabetes mellitus long term care pharmacist insulin use: without group home use Plan to address problem: Continue glipizide and coverage Check hemoglobin A1c (11) Sacral decubitus ulcer, stage IV Current Visit: Yes Status: Acute Plan to address problem: Wound care (12) Morbid obesity Current Visit: No Status: Chronic (13) Hypokalemia Current Visit: Yes Status: Acute Plan to address problem: Supplemented (14) Hypernatremia Current Visit: Yes Status: Acute Plan to address problem: Half Normal saline started (15) DVT prophylaxis Current Visit: Yes Status: Acute Plan to address problem: Continue Lovenox and GI prophylaxis Subjective Date of service: 11/03/18 Principal diagnosis: Acute Metabolic Encephalopathy Sacral decubitus ulcer Interval history: Very ALert and oriented Objective - Exam Narrative Exam: Lying in bed-A and o x3 - Constitutional Vitals: Vital Signs - 12hr 11/03/18 11/03/18 11/03/18 09:02 09:26 10:16 Temperature Pulse Rate Respiratory Rate Blood Pressure 101/62 O2 Sat by Pulse 99 100 Oximetry 11/03/18 11/03/18 14:10 19:53 Temperature 97.9 F 98.8 F Pulse Rate 68 89 Respiratory 20 18 Rate Blood Pressure 92/35 141/98 O2 Sat by Pulse 95 100 Oximetry General appearance: Present: no acute distress, well-nourished - EENT Eyes: PERRL, EOM intact ENT: hearing intact, clear oral mucosa Ears: bilateral: normal - Neck Neck: supple, normal ROM - Respiratory Respiratory effort: normal Respiratory: bilateral: CTA - Breasts Breasts: normal - Cardiovascular Heart rate: 78 Rhythm: regular Heart Sounds: Present: S1 & S2. Absent: gallop, rub Extremities: pulses intact, No edema, normal color, Full ROM, abnormal (Rt AKA) Extremity abnormal: other (Sacral decubitus ulcer ,L heel ulcer) - Gastrointestinal General gastrointestinal: Present: soft, non-tender, non-distended, normal bowel sounds - Genitourinary Male genitourinary: normal - Integumentary Integumentary: clear, warm, dry - Musculoskeletal Musculoskeletal: 1, strength equal bilaterally - Neurologic Neurologic: moves all extremities - Psychiatric Psychiatric: memory intact, appropriate mood/affect, intact judgment & insight - Labs CBC & Chem 7: 11/03/18 05:04 11/03/18 05:04 Labs: Abnormal lab results 11/03/18 11/03/18 11/03/18 Range/Units 05:04 05:04 05:04 Hgb 11.2 L (11.8-15.2) gm/dl Hct 35.3 L (35.5-45.6) % MCV 79 L (84-94) fl MCH 25 L (28-32) pg RDW 16.3 H (13.2-15.2) % Plt Count 122 L (140-440) K/mm3 Sodium 146 H (137-145) mmol/L Potassium 3.4 L (3.6-5.0) mmol/L Carbon Dioxide 31 H (22-30) mmol/L BUN 31 H (9-20) mg/dL POC Glucose (70-105) Calcium 10.3 H (8.4-10.2) mg/dL Ammonia 68.0 H (25-60) umol/L Total Protein 6.2 L (6.3-8.2) g/dL Albumin 3.0 L (3.9-5) g/dL 11/03/18 Range/Units 07:46 Hgb (11.8-15.2) gm/dl Hct (35.5-45.6) % MCV (84-94) fl MCH (28-32) pg RDW (13.2-15.2) % Plt Count (140-440) K/mm3 Sodium (137-145) mmol/L Potassium (3.6-5.0) mmol/L Carbon Dioxide (22-30) mmol/L BUN (9-20) mg/dL POC Glucose 69 L (70-105) Calcium (8.4-10.2) mg/dL Ammonia (25-60) umol/L Total Protein (6.3-8.2) g/dL Albumin (3.9-5) g/dL
[2018-11-03] MEDS ORDERED: K-DUR PO ONE (20:35)
[2018-11-03] MEDS ORDERED: NACL 0.45% 500 ML IV SCH (21:00)
[2018-11-03] MEDS: FLOMAX PO SCH (22:43)
[2018-11-03] MEDS: EFFEXOR XR PO SCH (22:45)
[2018-11-04] MEDS: NORCO 10/325 PO PRN ×3 (00:15→15:25)
[2018-11-04 05:25] LABS: Basophils % (Auto) 0.4 % (0.0-1.8); Eosinophils # (Auto) 0.1 K/mm3 (0.0-0.4); Eosinophils % (Auto) 1.4 % (0.0-4.3); Hematocrit 33.1 % (35.5-45.6); Hemoglobin 10.8 gm/dl (11.8-15.2); Lymphocytes # (Auto) 3.4 K/mm3 (1.2-5.4); Lymphocytes % (Auto) 41.2 % (13.4-35.0); Mean Corpuscular HGB Conc 33 % (32-34); Mean Corpuscular Volume 78 fl (84-94); Monocytes # (Auto) 0.6 K/mm3 (0.0-0.8); Monocytes % (Auto) 7.4 % (0.0-7.3); Platelet Count 113 K/mm3 (140-440); Red Blood Count 4.27 M/mm3 (3.65-5.03); Red Cell Distribution Width 15.8 % (13.2-15.2)
[2018-11-04 05:51] LABS: Alanine Aminotransferase 12 units/L (7-56); Albumin 2.8 g/dL (3.9-5); BUN/Creatinine Ratio 18; Blood Urea Nitrogen 23 mg/dL (9-20); Calcium 9.5 mg/dL (8.4-10.2); Hemolysis Index 47
[2018-11-04] MEDS: HumaLOG SUB-Q SCH ×4 (08:47→21:54)
--- NOTE | 2018-11-04 09:59 | Progress Note ---
Assessment and Plan Assessment and plan: 68-year-old morbidly obese male sent from [facility] by [facility] for altered mental status. Atrial fibrillation on xarelto, CHF, Seizure disorder, chronic pain syndrom, schiozophrenia. At the time of arrival patient is alert and oriented 1 and blood glucose of 74. Patient was here in August and was discharged after being treated for acute kidney injury toxic metabolic encephalopathy diabetes and hypertension. Old chart reviewed. No fever or chills. Patient has a tendency altered mental status frequently. His ammonia levels run high. Patient has a history of hypoventilation secondary to his morbid obesity. CXR:Poor inspiration. Mild cardiomegaly and central pulmonary venous congestion are suspected. CT HEAD: Cranial CT scan within normal limits. EKG: Afib Acute Metabolic Encephalopathy SALUD on CKD Secondary to vasomotor nephropathy-resolved Hypoxic respiratory failure- PO2 70 ON ABG Left heel ulcer Hyperammonemia Thrombocytopenia Moderate protein calorie malnutrition Atrial fibrillation Acute on chronic systolic congestive heart failure Peripheral Neuropathy Seizure disorder Vitamin D deficiency Type 2 DM Atypical Chest Pain Hypercalcemia Right AKA Urinary retention now resolved Plan: Continue supportive care Cultures show 1 out of 2 bottles for gram-positive in pairs possible contamination or continue antibiotics for now Surgery consult for possible bedside debridement of left heel wound EEG and neurology consult still pending discussed with nursing staff to recall. This is to assist us in management of medication considering changes in medications for improvement in mental status. Psych consult adjusted to assist with medication management HIT panel sent off for further evaluation patient is on Xarelto for A. fib Continue anticoagulation Changes to Lasix 40 mg daily and discontinue Bumex and discharge. Due to low blood pressure Outpatient stress test. ARB HELD SECONDARY TO SALUD will consider restarting on discharge and have repeat studies outpatient Continue lactulose and as adjusted to BID will change on home does Continue to hold Oxycodone, and phenytonin till Neurology eval Lyrica decreased to 200mg daily from twice a day Continue Keppra Continue glipized and coverage Fall precautions dvt/gi PROPHY Adjust pain control management discussed with the patient in detail. History Interval history: Patient seen and examined this morning complains of pain and generalized once the medication for follows with his half conversation about pain management. Rates the pain a 5 foot 10 in intensity worse on the left heel. Mental status has improved Hospitalist Physical - Physical exam Narrative exam: VITAL SIGNS: Reviewed. GENERAL: The patient appeared well nourished and normally developed, Vital signs as documented. HEAD: No signs of head trauma. EYES: Pupils are equal. Extraocular motions intact. EARS: Hearing grossly intact. MOUTH: Oropharynx is normal. NECK: No adenopathy, no JVD. Mildly tender on the right side. CHEST: Chest with clear breath sounds bilaterally. No wheezes, rales, or rhonchi. CARDIAC: Regular rate and rhythm. S1 and S2, without murmurs, gallops, or rubs. VASCULAR: No Edema. Peripheral pulses normal and equal in all extremities. ABDOMEN: Soft, non tender and non distended. No rebound or guarding, and no masses palpated. Bowel Sounds normal. MUSCULOSKELETAL: Good range of motion of all major joints except for noted rig ht AKA. Extremities without clubbing, cyanosis with mild edema left lower extremity. NEUROLOGIC EXAM: Alert and oriented x 3 No focal sensory or strength deficits. Speech normal. Follows commands. PSYCHIATRIC: Mood normal. SKIN: Left heel necrotic lesion. Sacral dry skin fold areas. - Constitutional Vitals: Temp Pulse Resp BP Pulse Ox 97.6 F 68 20 110/75 98 11/04/18 07:50 11/04/18 08:15 11/04/18 07:50 11/04/18 07:50 11/04/18 08:15 General appearance: Present: no acute distress, well-nourished Results - Labs CBC & Chem 7: 11/04/18 05:13 11/04/18 05:13 Labs: Laboratory Last Values WBC 8.2 K/mm3 (4.5-11.0) 11/04/18 05:13 RBC 4.27 M/mm3 (3.65-5.03) 11/04/18 05:13 Hgb 10.8 gm/dl (11.8-15.2) L 11/04/18 05:13 Hct 33.1 % (35.5-45.6) L 11/04/18 05:13 MCV 78 fl (84-94) L 11/04/18 05:13 MCH 25 pg (28-32) L 11/04/18 05:13 MCHC 33 % (32-34) 11/04/18 05:13 RDW 15.8 % (13.2-15.2) H 11/04/18 05:13 Plt Count 113 K/mm3 (140-440) L 11/04/18 05:13 Lymph % (Auto) 41.2 % (13.4-35.0) H 11/04/18 05:13 [place] % (Auto) 7.4 % (0.0-7.3) H 11/04/18 05:13 Eos % (Auto) 1.4 % (0.0-4.3) 11/04/18 05:13 Baso % (Auto) 0.4 % (0.0-1.8) 11/04/18 05:13 Lymph # 3.4 K/mm3 (1.2-5.4) 11/04/18 05:13 [place] # 0.6 K/mm3 (0.0-0.8) 11/04/18 05:13 Eos # 0.1 K/mm3 (0.0-0.4) 11/04/18 05:13 Baso # 0.0 K/mm3 (0.0-0.1) 11/04/18 05:13 Seg Neutrophils % 49.6 % (40.0-70.0) 11/04/18 05:13 Seg Neutrophils # 4.1 K/mm3 (1.8-7.7) 11/04/18 05:13 PT 15.2 Sec. (12.2-14.9) H 11/01/18 08:35 INR 1.13 (0.87-1.13) 11/01/18 08:35 APTT 34.9 Sec. (24.2-36.6) 11/01/18 08:35 POC ABG pH 7.427 (7.35-7.45) 11/01/18 10:37 POC ABG pCO2 46.3 (35-45) H 11/01/18 10:37 POC ABG pO2 72 (80-105) L 11/01/18 10:37 POC ABG HCO3 30.5 (22-26 mml/L) 11/01/18 10:37 POC ABG Total CO2 32 (23-27mmol/L) 11/01/18 10:37 POC ABG O2 Sat 95 11/01/18 10:37 POC ABG Base Excess 6 ((-2) - (+3)mmol/L) 11/01/18 10:37 21 % 11/01/18 10:37 Sodium 140 mmol/L (137-145) 11/04/18 05:13 Potassium 3.8 mmol/L (3.6-5.0) 11/04/18 05:13 Chloride 102.4 mmol/L (98-107) 11/04/18 05:13 Carbon Dioxide 29 mmol/L (22-30) 11/04/18 05:13 12 mmol/L 11/04/18 05:13 BUN 23 mg/dL (9-20) H 11/04/18 05:13 1.3 mg/dL (0.8-1.5) 11/04/18 05:13 Estimated GFR > 60 ml/min 11/04/18 05:13 18 % 11/04/18 05:13 Glucose 83 mg/dL (75-100) 11/04/18 05:13 POC Glucose 75 (70-105) 11/04/18 07:33 5.3 % (4-6) 11/02/18 05:10 Lactic Acid 2.00 mmol/L (0.7-2.0) 11/01/18 09:12 Calcium 9.5 mg/dL (8.4-10.2) 11/04/18 05:13 Magnesium 2.40 mg/dL (1.7-2.3) H 11/01/18 08:35 0.30 mg/dL (0.1-1.2) 11/04/18 05:13 < 0.2 mg/dL (0-0.2) 11/01/18 08:35 0.1 mg/dL 11/01/18 08:35 AST 20 units/L (5-40) 11/04/18 05:13 ALT 12 units/L (7-56) 11/04/18 05:13 68 units/L (35-129) 11/04/18 05:13 53.0 umol/L (25-60) 11/04/18 05:13 34 units/L (55-170) L 11/01/18 08:35 CK-MB (CK-2) < 1.0 ng/mL (0.0-4.0) 11/01/18 08:35 CK-MB (CK-2) Rel Index 2.9 (0-4) 11/01/18 08:35 < 0.010 ng/mL (0.00-0.029) 11/01/18 08:35 NT-Pro-B Natriuret Pep 247.1 pg/mL (0-900) 11/01/18 08:35 6.0 g/dL (6.3-8.2) L 11/04/18 05:13 2.8 g/dL (3.9-5) L 11/04/18 05:13 0.9 % 11/04/18 05:13 TSH 1.460 mlU/mL (0.270-4.200) 11/01/18 09:12 Free T4 0.82 ng/dL (0.76-1.46) 11/01/18 09:12 Yellow (Yellow) 11/01/18 09:27 Clear (Clear) 11/01/18 09:27 6.0 (5.0-7.0) 11/01/18 09:27 Ur Specific [place] 1.019 (1.003-1.030) 11/01/18 09:27 <15 mg/dl mg/dL (Negative) 11/01/18 09:27 Neg mg/dL (Negative) 11/01/18 09:27 Neg mg/dL (Negative) 11/01/18 09:27 Neg (Negative) 11/01/18 09:27 Neg (Negative) 11/01/18 09:27 Neg (Negative) 11/01/18 09:27 < 2.0 mg/dL (<2.0) 11/01/18 09:27 Ur Leukocyte Esterase Neg (Negative) 11/01/18 09:27 1.0 /HPF (0.0-6.0) 11/01/18 09:27 < 1.0 /HPF (0.0-6.0) 11/01/18 09:27 Active Medications - Current Medications Current Medications: Generic Name Dose Route Start Last Admin Trade Name Freq PRN Reason Stop Dose Admin Acetaminophen 650 mg 11/02/18 01:23 11/02/18 18:37 Tylenol PO 650 mg Q6H PRN Administration Pain, Mild (1-3) Acetaminophen/Hydrocodone Bitart 1 each 11/02/18 19:59 11/04/18 06:21 [place] 10/325 PO 1 each Q6H PRN Administration Pain, Moderate (4-6) Albuterol 2.5 mg 11/02/18 12:00 Proventil IH Q4HRT PRN Shortness Of Breath Amitriptyline HCl 10 mg 11/01/18 23:00 11/03/18 22:44 Elavil PO 10 mg BID MELINA Administration Atorvastatin Calcium 10 mg 11/02/18 10:00 11/03/18 09:24 Lipitor PO 10 mg DAILY MELINA Administration Carvedilol 25 mg 11/01/18 23:00 11/03/18 22:41 Coreg PO 25 mg BID MELINA Administration Cholecalciferol 2,000 unit 11/02/18 10:00 11/03/18 09:24 Vitamin D3 PO 2,000 unit DAILY MELINA Administration Divalproex Sodium 125 mg 11/01/18 23:00 11/03/18 22:[address] PO 125 mg BID MELINA Administration Docusate Sodium 100 mg 11/01/18 22:59 11/02/18 01:31 Colace PO 100 mg BID PRN Administration Constipation Glipizide 5 mg 11/02/18 08:00 11/03/18 09:25 Glucotrol PO 5 mg QDDIAB MELINA Administration Azithromycin 500 mg/ Sodium 250 mls @ 250 mls/hr 11/02/18 18:00 11/03/18 09:24 Chloride IV 250 mls/hr Q24HR MELINA Administration Sodium Chloride 500 mls @ 50 mls/hr 11/03/18 21:00 11/04/18 03:15 Nacl 0.45% IV 50 mls/hr DIRECT MELINA Administration Insulin Human Lispro 0 unit 11/02/18 07:30 11/04/18 08:47 Humalog SUB-Q Not Given ACHS [facility] Protocol Lactulose 20 gm 11/01/18 23:45 11/03/18 22:45 Cephulac PO 20 gm BID MELINA Administration Levetiracetam 1,000 mg 11/01/18 23:00 11/03/18 22:41 Keppra PO 1,000 mg BID MELINA Administration Metolazone 2.5 mg 11/03/18 10:00 11/03/18 09:25 Zaroxolyn PO 2.5 mg MoWeFr MELINA Administration Polyethylene Glycol 17 gm 11/02/18 10:00 11/03/18 09:24 Miralax 3350 PO 17 gm QDAY MELINA Administration Prednisone 5 mg 11/02/18 10:00 11/03/18 09:24 Deltasone PO 5 mg DAILY MELINA Administration Pregabalin 25 mg 11/02/18 01:30 11/03/18 22:41 Lyrica PO 25 mg BID MLEINA Administration Pregabalin 75 mg 11/02/18 01:30 11/03/18 22:41 Lyrica PO 75 mg BID MELINA Administration Rivaroxaban 20 mg 11/02/18 17:00 11/03/18 17:52 Xarelto PO 20 mg QPMDIAB MELINA Administration Tamsulosin HCl 0.4 mg 11/02/18 22:00 11/03/18 22:43 Flomax PO 0.4 mg QHS MELINA Administration Venlafaxine HCl 75 mg 11/02/18 22:00 11/03/18 22:45 Effexor Xr PO 75 mg QHS MELINA Administration Nutrition/Malnutrition Assess - Dietary Evaluation Nutrition/Malnutrition Findings: Nutrition Notes Start: 11/02/18 14:24 Freq: Status: Active Protocol: Document 11/02/18 14:24 RM (Rec: 11/02/18 14:33 RM [email or web address]) Nutrition Notes Need for 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 [place] 14 points. Pt asleep at time of visit. No temporal or orbital wasting. Per pt tech pt ate all of breakfast this morning but vomited afterwards . Per nurse pt may have vomited d/t recently receiving medication. Burn Absent Trauma Absent Nutrition Intervention Follow-Up By: 11/04/18 Additional Comments Follow for malnutrition assessment, PO tolerance
[2018-11-04] MEDS: CEPHULAC PO SCH ×2 (10:02→21:51)
[2018-11-04] MEDS: KEPPRA PO SCH ×2 (10:03→21:51)
[2018-11-04] MEDS: GLUCOTROL PO SCH (10:03)
[2018-11-04] MEDS: ELAVIL PO SCH ×2 (10:03→22:11)
[2018-11-04] MEDS: DELTASONE PO SCH (10:03)
[2018-11-04] MEDS: VITAMIN D3 PO SCH (10:03)
[2018-11-04] MEDS: LYRICA PO SCH ×4 (10:03→21:50)
[2018-11-04] MEDS: COREG PO SCH ×2 (10:05→21:51)
[2018-11-04] MEDS: MIRALAX 3350 PO SCH (10:05)
[2018-11-04] MEDS: ZITHROMAX 500 MG in NACL 0.9% 250ML 250 ML IV SCH (10:09)
--- NOTE | 2018-11-04 13:31 | Progress Note ---
Subjective Date of service: 11/04/18 Principal diagnosis: Acute Metabolic Encephalopathy Sacral decubitus ulcer Interval history: onset of seizures plan CT check and review EEG recommend anticonvulsants will follow up Objective - Vital Sign Vital Signs - 12hr 11/04/18 11/04/18 11/04/18 02:29 06:21 07:21 Temperature 98.1 F Pulse Rate 77 Pulse Rate [ From Monitor] Respiratory 20 20 18 Rate Blood Pressure 115/63 O2 Sat by Pulse 100 Oximetry 11/04/18 11/04/18 11/04/18 07:50 08:15 10:00 Temperature 97.6 F Pulse Rate 70 Pulse Rate [ 68 From Monitor] Respiratory 20 Rate Blood Pressure 110/75 O2 Sat by Pulse 100 98 98 Oximetry 11/04/18 10:05 Temperature Pulse Rate Pulse Rate [ From Monitor] Respiratory Rate Blood Pressure 110/75 O2 Sat by Pulse Oximetry - Laboratory Findings CBC and BMP: 11/04/18 05:13 11/04/18 05:13 Abnormal Lab Findings: Abnormal Labs 11/01/18 11/01/18 11/01/18 08:35 08:35 08:35 RBC 5.18 H Hgb Hct MCV 79 L MCH 25 L RDW 16.9 H Plt Count Lymph % (Auto) [place] % (Auto) PT 15.2 H POC ABG pCO2 POC ABG pO2 Sodium Potassium Carbon Dioxide 31 H BUN 32 H Creatinine 1.6 H POC Glucose Calcium 10.5 H Magnesium 2.40 H Ammonia Total Creatine Kinase 34 L Total Protein Albumin 3.5 L 11/01/18 11/01/18 11/02/18 09:12 10:37 10:48 RBC Hgb Hct MCV MCH RDW Plt Count Lymph % (Auto) [place] % (Auto) PT POC ABG pCO2 46.3 H POC ABG pO2 72 L Sodium Potassium Carbon Dioxide BUN Creatinine POC Glucose Calcium 10.6 H Magnesium Ammonia 72.0 H Total Creatine Kinase Total Protein Albumin 11/02/18 11/03/18 11/03/18 11:31 05:04 05:04 RBC Hgb 11.2 L Hct 35.3 L MCV 79 L MCH 25 L RDW 16.3 H Plt Count 122 L Lymph % (Auto) [place] % (Auto) PT POC ABG pCO2 POC ABG pO2 Sodium 146 H Potassium 3.4 L Carbon Dioxide 31 H BUN 31 H Creatinine POC Glucose 119 H Calcium 10.3 H Magnesium Ammonia Total Creatine Kinase Total Protein 6.2 L Albumin 3.0 L 11/03/18 11/03/18 11/04/18 05:04 07:46 05:13 RBC Hgb 10.8 L Hct 33.1 L MCV 78 L MCH 25 L RDW 15.8 H Plt Count 113 L Lymph % (Auto) 41.2 H [place] % (Auto) 7.4 H PT POC ABG pCO2 POC ABG pO2 Sodium Potassium Carbon Dioxide BUN Creatinine POC Glucose 69 L Calcium Magnesium Ammonia 68.0 H Total Creatine Kinase Total Protein Albumin 11/04/18 05:13 RBC Hgb Hct MCV MCH RDW Plt Count Lymph % (Auto) [place] % (Auto) PT POC ABG pCO2 POC ABG pO2 Sodium Potassium Carbon Dioxide BUN 23 H Creatinine POC Glucose Calcium Magnesium Ammonia Total Creatine Kinase Total Protein 6.0 L Albumin 2.8 L
--- NOTE | 2018-11-04 14:18 | Consultation ---
History of Present Illness Consult date: 11/04/18 Chief complaint: Left heel pressure ulcer - History of present illness History of present illness: 68 yo male admitted with AMS. Asked to see re a left heel pressure ulcer. There is no h/o DM. Medications and Allergies Allergies Allergy/AdvReac Type Severity Reaction Status Date / Time Penicillins Allergy Unknown Verified 07/16/17 17:29 Home Medications Medication Instructions Recorded Confirmed Last Taken Type Atorvastatin Calcium 10 mg PO DAILY 08/30/18 11/01/18 08/30/18 History Bumetanide [Bumex 1 mg tab] 2 mg PO DAILY 08/30/18 11/01/18 08/30/18 History Carvedilol [Coreg] 25 mg PO BID 08/30/18 11/01/18 08/30/18 History Docusate Sodium [Colace CAP] 100 mg PO BID PRN 08/30/18 11/01/18 08/30/18 History Lactulose [Cephulac] 20 gm PO QHS PRN 08/30/18 11/01/18 08/30/18 History Phenytoin Sodium Extended 200 mg PO Q8HR 08/30/18 11/01/18 08/30/18 History [Dilantin] Pregabalin [Lyrica] 200 mg PO BID 08/30/18 11/01/18 08/30/18 History Rivaroxaban [Xarelto Starter Pack] 20 each PO DAILY 08/30/18 11/01/18 08/30/18 History Venlafaxine [Effexor 37.5mg tab] 75 mg PO QHS 08/30/18 11/01/18 08/30/18 History levETIRAcetam [Keppra] 1,000 mg PO BID 08/30/18 11/01/18 08/30/18 History metOLazone [Zaroxolyn] 2.5 mg PO 3XW 08/30/18 11/01/18 08/30/18 History predniSONE [Prednisone] 5 mg PO DAILY 08/30/18 11/01/18 08/30/18 History glipiZIDE [Glipizide] 5 mg PO DAILY #30 tablet 09/03/18 11/01/18 Unknown Rx Acetaminophen [Arthritis Pain 650 mg PO Q6H PRN 11/01/18 11/01/18 Unknown History Relief] Amitriptyline [Elavil] 10 mg PO BID 11/01/18 11/01/18 Unknown History Cholecalciferol (Vitamin D3) 2,000 unit PO QDAY 11/01/18 11/01/18 Unknown History [Vitamin D3 2,000 UNIT CAP] Divalproex Dr [Rafy PABON] 125 mg PO BID 11/01/18 11/01/18 Unknown History Magnesium Hydroxide [Milk of 30 ml PO DAILY PRN 11/01/18 11/01/18 Unknown History Magnesia] Oxycodone HCl [roxiCODONE] 30 mg PO Q4H PRN 11/01/18 11/01/18 Unknown History Polyethylene Glycol 3350 [Miralax 17 gm PO QDAY 11/01/18 11/01/18 Unknown History 3350] Active Meds: Active Medications Acetaminophen (Tylenol) 650 mg PO Q6H PRN PRN Reason: Pain, Mild (1-3) Last Admin: 11/02/18 18:37 Dose: 650 mg Documented by: Acetaminophen/Hydrocodone Bitart ([place] 5/325) 1 each PO Q4H PRN PRN Reason: Pain, Moderate (4-6) Albuterol (Proventil) 2.5 mg IH Q4HRT PRN PRN Reason: Shortness Of Breath Amitriptyline HCl (Elavil) 10 mg PO BID [facility] Last Admin: 11/04/18 10:03 Dose: 10 mg Documented by: Atorvastatin Calcium (Lipitor) 10 mg PO DAILY [facility] Last Admin: 11/04/18 10:03 Dose: 10 mg Documented by: Carvedilol (Coreg) 25 mg PO BID [facility] Last Admin: 11/04/18 10:05 Dose: 25 mg Documented by: Cholecalciferol (Vitamin D3) 2,000 unit PO DAILY [facility] Last Admin: 11/04/18 10:03 Dose: 2,000 unit Documented by: Divalproex Sodium (Rafy Pabon) 125 mg PO BID [facility] Last Admin: 11/04/18 10:03 Dose: 125 mg Documented by: Docusate Sodium (Colace) 100 mg PO BID PRN PRN Reason: Constipation Last Admin: 11/02/18 01:31 Dose: 100 mg Documented by: Furosemide (Lasix) 40 mg PO QDAY [facility] Glipizide (Glucotrol) 5 mg PO QDDIAB [facility] Last Admin: 11/04/18 10:03 Dose: 5 mg Documented by: Azithromycin 500 mg/ Sodium (Chloride) 250 mls @ 250 mls/hr IV Q24HR [facility] Last Admin: 11/04/18 10:09 Dose: 250 mls/hr Documented by: Sodium Chloride (Nacl 0.45%) 500 mls @ 50 mls/hr IV DIRECT [facility] Last Admin: 11/04/18 03:15 Dose: 50 mls/hr Documented by: Insulin Human Lispro (Humalog) 0 unit SUB-Q ACHS [facility]; Protocol Last Admin: 11/04/18 08:47 Dose: Not Given Documented by: Lactulose (Cephulac) 20 gm PO BID [facility] Last Admin: 11/04/18 10:02 Dose: 20 gm Documented by: Levetiracetam (Keppra) 1,000 mg PO BID [facility] Last Admin: 11/04/18 10:03 Dose: 1,000 mg Documented by: Metolazone (Zaroxolyn) 2.5 mg PO MoWeFr [facility] Last Admin: 11/03/18 09:25 Dose: 2.5 mg Documented by: Oxycodone HCl (Oxycontin) 10 mg PO Q12HR [facility] Polyethylene Glycol (Miralax 3350) 17 gm PO QDAY [facility] Last Admin: 11/04/18 10:05 Dose: 17 gm Documented by: Prednisone (Deltasone) 5 mg PO DAILY [facility] Last Admin: 11/04/18 10:03 Dose: 5 mg Documented by: Pregabalin (Lyrica) 25 mg PO BID [facility] Last Admin: 11/04/18 10:03 Dose: 25 mg Documented by: Pregabalin (Lyrica) 75 mg PO BID [facility] Last Admin: 11/04/18 10:03 Dose: 75 mg Documented by: Rivaroxaban (Xarelto) 20 mg PO QPMDIAB [facility] Last Admin: 11/03/18 17:52 Dose: 20 mg Documented by: Tamsulosin HCl (Flomax) 0.4 mg PO QHS [facility] Last Admin: 11/03/18 22:43 Dose: 0.4 mg Documented by: Venlafaxine HCl (Effexor Xr) 75 mg PO QHS [facility] Last Admin: 11/03/18 22:45 Dose: 75 mg Documented by: Review of Systems All systems: negative (none) Exam Vital Signs BP 125/66 11/01/18 08:24 - General physical appearance Positive: well developed, well nourished, no distress - Eyes Positive: PERRL, normal occular movement - ENT Positive: normal pinna, normal nares, normal mucosa, no hearing loss, no congestion - Neck Positive: no masses, no bruits, trachea midline, no venous distension - Respiratory Positive: normal expansion, normal respiratory effort, clear to auscultation - Cardiovascular Rhythm: regular Heart Sounds: Present: S1 & S2. Absent: rub, click - Extremities Extremity abnormal: other (S/p right AKA) - Breasts Breasts: deferred - Abdomen Abdomen: Present: soft, bowel sounds normal. Absent: tender, distended Hernia: none - Genitourinary Male Genitourinary: normal - Integumentary other (There is a 3 X 2 X 0.3 cm unstageable, non-infected pressure ulcer of his left posterior heel.) - Neurologic Neurologic: alert and oriented to time, place and person, motor strength and sensation are grossly intact - Psychiatric Psychiatric: appropriate mood/affect, intact judgment & insight Results - Labs 11/04/18 05:13 11/04/18 05:13 Abnormal lab results 11/04/18 11/04/18 Range/Units 05:13 05:13 Hgb 10.8 L (11.8-15.2) gm/dl Hct 33.1 L (35.5-45.6) % MCV 78 L (84-94) fl MCH 25 L (28-32) pg RDW 15.8 H (13.2-15.2) % Plt Count 113 L (140-440) K/mm3 Lymph % (Auto) 41.2 H (13.4-35.0) % [place] % (Auto) 7.4 H (0.0-7.3) % BUN 23 H (9-20) mg/dL Total Protein 6.0 L (6.3-8.2) g/dL Albumin 2.8 L (3.9-5) g/dL Diabetes panel 11/04/18 Range/Units 05:13 Sodium 140 (137-145) mmol/L Potassium 3.8 (3.6-5.0) mmol/L Chloride 102.4 (98-107) mmol/L Carbon Dioxide 29 (22-30) mmol/L BUN 23 H (9-20) mg/dL Creatinine 1.3 (0.8-1.5) mg/dL Glucose 83 (75-100) mg/dL Calcium 9.5 (8.4-10.2) mg/dL AST 20 (5-40) units/L ALT 12 (7-56) units/L Alkaline Phosphatase 68 (35-129) units/L Total Protein 6.0 L (6.3-8.2) g/dL Albumin 2.8 L (3.9-5) g/dL Calcium panel 11/04/18 Range/Units 05:13 Calcium 9.5 (8.4-10.2) mg/dL Albumin 2.8 L (3.9-5) g/dL Pituitary panel 11/04/18 Range/Units 05:13 Sodium 140 (137-145) mmol/L Potassium 3.8 (3.6-5.0) mmol/L Chloride 102.4 (98-107) mmol/L Carbon Dioxide 29 (22-30) mmol/L BUN 23 H (9-20) mg/dL Creatinine 1.3 (0.8-1.5) mg/dL Glucose 83 (75-100) mg/dL Calcium 9.5 (8.4-10.2) mg/dL Adrenal panel 11/04/18 Range/Units 05:13 Sodium 140 (137-145) mmol/L Potassium 3.8 (3.6-5.0) mmol/L Chloride 102.4 (98-107) mmol/L Carbon Dioxide 29 (22-30) mmol/L BUN 23 H (9-20) mg/dL Creatinine 1.3 (0.8-1.5) mg/dL Glucose 83 (75-100) mg/dL Calcium 9.5 (8.4-10.2) mg/dL Total Bilirubin 0.30 (0.1-1.2) mg/dL AST 20 (5-40) units/L ALT 12 (7-56) units/L Alkaline Phosphatase 68 (35-129) units/L Total Protein 6.0 L (6.3-8.2) g/dL Albumin 2.8 L (3.9-5) g/dL Assessment and Plan - Patient Problems (1) Unstageable pressure ulcer of left heel Current Visit: Yes Status: Acute Plan to address problem: 1) Off loading 2) PT consult 3) Intense nutritional support 4) Will debride ulcer at bedside 5) LLE arterial dopplers
[2018-11-04] MEDS: LASIX PO SCH (15:25)
[2018-11-04] MEDS: XARELTO PO SCH (17:19)
[2018-11-04] MEDS: FLOMAX PO SCH (21:50)
[2018-11-04] MEDS: OxyCONTIN PO SCH (21:50)
[2018-11-04] MEDS: EFFEXOR XR PO SCH (21:52)
[2018-11-04] MEDS: NORCO 5/325 PO PRN (21:52)
[2018-11-05] MEDS: NORCO 5/325 PO PRN ×3 (02:05→14:08)
[2018-11-05 05:40] LABS: Hematocrit 32.1 % (35.5-45.6); Hemoglobin 10.4 gm/dl (11.8-15.2); Mean Corpuscular HGB Conc 32 % (32-34); Mean Corpuscular Volume 78 fl (84-94); Platelet Count 107 K/mm3 (140-440); Red Blood Count 4.12 M/mm3 (3.65-5.03)
[2018-11-05 05:50] LABS: BUN/Creatinine Ratio 15; Blood Urea Nitrogen 20 mg/dL (9-20); Calcium 9.8 mg/dL (8.4-10.2); Hemolysis Index 5
[2018-11-05] MEDS: HumaLOG SUB-Q SCH ×3 (07:38→16:37)
--- NOTE | 2018-11-05 08:22 | Progress Note ---
Subjective Date of service: 11/05/18 Principal diagnosis: Acute Metabolic Encephalopathy Sacral decubitus ulcer Interval history: seizure control is good and he is alert pain in the right knee is [id number] can have surgical cl;wearance per Dr. Arango's notes mentally cl;ear at thi point explained dx to patient Objective - Vital Sign Vital Signs - 12hr 11/04/18 11/04/18 11/04/18 21:50 21:51 21:52 Temperature Pulse Rate 78 Respiratory 21 21 Rate Blood Pressure 124/69 O2 Sat by Pulse Oximetry 11/04/18 11/04/18 11/04/18 22:00 22:50 22:52 Temperature Pulse Rate 78 Respiratory 20 20 Rate Blood Pressure O2 Sat by Pulse 96 Oximetry 11/05/18 11/05/18 11/05/18 01:19 02:05 03:05 Temperature 98.0 F Pulse Rate 84 Respiratory 18 18 18 Rate Blood Pressure 114/59 O2 Sat by Pulse 97 Oximetry 11/05/18 11/05/18 11/05/18 06:42 07:18 07:30 Temperature 98.0 F Pulse Rate 75 Respiratory 21 20 Rate Blood Pressure 109/48 O2 Sat by Pulse 98 98 Oximetry 11/05/18 07:33 Temperature 98.2 F Pulse Rate Respiratory 20 Rate Blood Pressure O2 Sat by Pulse Oximetry - Laboratory Findings CBC and BMP: 11/05/18 05:01 11/05/18 05:01 Abnormal Lab Findings: Abnormal Labs 11/01/18 11/01/18 11/01/18 08:35 08:35 08:35 RBC 5.18 H Hgb Hct MCV 79 L MCH 25 L RDW 16.9 H Plt Count Lymph % (Auto) [place] % (Auto) PT 15.2 H POC ABG pCO2 POC ABG pO2 Sodium Potassium Carbon Dioxide 31 H BUN 32 H Creatinine 1.6 H POC Glucose Calcium 10.5 H Magnesium 2.40 H Ammonia Total Creatine Kinase 34 L Total Protein Albumin 3.5 L 11/01/18 11/01/18 11/02/18 09:12 10:37 10:48 RBC Hgb Hct MCV MCH RDW Plt Count Lymph % (Auto) [place] % (Auto) PT POC ABG pCO2 46.3 H POC ABG pO2 72 L Sodium Potassium Carbon Dioxide BUN Creatinine POC Glucose Calcium 10.6 H Magnesium Ammonia 72.0 H Total Creatine Kinase Total Protein Albumin 11/02/18 11/03/18 11/03/18 11:31 05:04 05:04 RBC Hgb 11.2 L Hct 35.3 L MCV 79 L MCH 25 L RDW 16.3 H Plt Count 122 L Lymph % (Auto) [place] % (Auto) PT POC ABG pCO2 POC ABG pO2 Sodium 146 H Potassium 3.4 L Carbon Dioxide 31 H BUN 31 H Creatinine POC Glucose 119 H Calcium 10.3 H Magnesium Ammonia Total Creatine Kinase Total Protein 6.2 L Albumin 3.0 L 11/03/18 11/03/18 11/04/18 05:04 07:46 05:13 RBC Hgb 10.8 L Hct 33.1 L MCV 78 L MCH 25 L RDW 15.8 H Plt Count 113 L Lymph % (Auto) 41.2 H [place] % (Auto) 7.4 H PT POC ABG pCO2 POC ABG pO2 Sodium Potassium Carbon Dioxide BUN Creatinine POC Glucose 69 L Calcium Magnesium Ammonia 68.0 H Total Creatine Kinase Total Protein Albumin 11/04/18 11/04/18 11/05/18 05:13 16:47 05:01 RBC Hgb 10.4 L Hct 32.1 L MCV 78 L MCH 25 L RDW 16.0 H Plt Count 107 L Lymph % (Auto) [place] % (Auto) PT POC ABG pCO2 POC ABG pO2 Sodium Potassium Carbon Dioxide BUN 23 H Creatinine POC Glucose 68 L Calcium Magnesium Ammonia Total Creatine Kinase Total Protein 6.0 L Albumin 2.8 L
--- NOTE | 2018-11-05 09:34 | Discharge Summary ---
Providers - Providers Date of Admission: 11/01/18 13:18 Attending physician: AMARA CHARLES MD 11/01/18 17:19 Occupational Therapy Evaluate and Treat [CONS] Routine Comment: Reason For Exam: PT OT EVAL / RX 11/01/18 17:20 Physical Therapy Evaluation and Treat [CONS] Routine Comment: Reason For Exam: PT EVAL /RX Speech Therapy Evaluation and Treat [CONS] Routine Reason For Exam: aphasia 11/02/18 10:21 Consult to Physician [CONS] Routine Comment: called office/benito Consulting Provider: LOS ADHIKARI Physician Instructions: Reason For Exam: seizure 11/02/18 14:17 Consult to Wound/ET Nurse [CONS] Routine Reason For Exam: wound eval 11/03/18 16:05 Consult to Physician [CONS] Routine Comment: left mess. on answ. machine/benito Consulting Provider: DILIA PRUITT Physician Instructions: PLEASE SEE LEFT HEEL Reason For Exam: EVALUATE LEFT HEEL FOR DEBRIDEMENT 11/04/18 08:44 Consult to Dietitian/Nutrition [CONS] Routine Physician Instructions: Reason For Exam: Reason for Consult: Malnutrition 11/04/18 09:11 Consult to Mental Health [CONS] Routine Reason For Exam: medication management Place consult to:: mental health Notified:: yes Phone number called:: [phone] Was contact made?: Yes If yes, spoke with:: corinne Time called:: 10:13 Comment:: benito [facility] Reason for admission: AMS Condition: Stable Hospital course: 68-year-old morbidly obese male sent from [facility] by [facility] for altered mental status. Atrial fibrillation on xarelto, CHF, Seizure disorder, chronic pain syndrome, schiozophrenia. At the time of arrival patient is alert and oriented 1 and blood glucose of 74. Patient was here in August and was discharged after being treated for acute kidney injury toxic metabolic encephalopathy diabetes and hypertension. Old chart reviewed. No fever or chills. Patient has a tendency altered mental status frequently. His ammonia levels run high. Patient has a history of hypoventilation secondary to his morbid obesity. CXR:Poor inspiration. Mild cardiomegaly and central pulmonary venous congestion are suspected. CT HEAD: Cranial CT scan within normal limits. EKG: Afib Patient on admission had adjustments to medication as polypharmacy was noted to be one of the inciting factors. also lactulose was increased to bid and mental status improved. The patient was noted to have a left heal wound, wound care evaluated the patient and recommended debridement, the surgeon evaluated the patient and stated it could be done outpatient, patient was advised. there was a transient decrease in platelet which improved. we also recommended outpatient stress test. we adjusted the Dilantin and the opioid medications and advised the patient on opioid management Discharge Diagnosis Acute Metabolic Encephalopathy SALUD on CKD Secondary to vasomotor nephropathy-resolved Hypoxic respiratory failure- PO2 70 ON ABG Left heel ulcer infectious Hyperammonemia Thrombocytopenia Moderate protein calorie malnutrition Atrial fibrillation Acute on chronic systolic congestive heart failure Peripheral Neuropathy Seizure disorder Vitamin D deficiency Type 2 DM Atypical Chest Pain Hypercalcemia Right AKA Urinary retention now resolved Disposition: [id number]/[place]-[id number] [facility] Time spent for discharge: 35 mins Core Measure Documentation - Palliative Care Palliative Care/ Comfort Measures: Not Applicable - Core Measures Any of the following diagnoses?: none Exam - Physical Exam Narrative exam: VITAL SIGNS: Reviewed. GENERAL: The patient appeared well nourished and normally developed, Vital sign s as documented. HEAD: No signs of head trauma. EYES: Pupils are equal. Extraocular motions intact. EARS: Hearing grossly intact. MOUTH: Oropharynx is normal. NECK: No adenopathy, no JVD. Mildly tender on the right side. CHEST: Chest with clear breath sounds bilaterally. No wheezes, rales, or rhonchi. CARDIAC: Regular rate and rhythm. S1 and S2, without murmurs, gallops, or rubs . VASCULAR: No Edema. Peripheral pulses normal and equal in all extremities. ABDOMEN: Soft, non tender and non distended. No rebound or guarding, and no masses palpated. Bowel Sounds normal. MUSCULOSKELETAL: Good range of motion of all major joints except for noted right AKA. Extremities without clubbing, cyanosis with mild edema left lower extremity. NEUROLOGIC EXAM: Alert and oriented x 3 No focal sensory or strength deficits. Speech normal. Follows commands. PSYCHIATRIC: Mood normal. SKIN: Left heel necrotic lesion. Sacral dry skin fold areas. - Constitutional Vitals: Temp Pulse Resp BP Pulse Ox 98.2 F 75 20 109/48 98 11/05/18 07:33 11/05/18 08:42 11/05/18 08:42 11/05/18 07:30 11/05/18 08:42 Plan Activity: advance as tolerated, fall precautions Diet: regular Wound: per wound nurse instructions, other (Follow with DR Nba Hanley at the wound care clinic in 3-5 days) Special Instructions: record daily weights [facility] [Primary Care Provider] - 3-5 Days LOS ADHIKARI MD [Staff Physician] - 7 Days DILIA PRUITT MD [Staff Physician] - 3 Days Prescriptions: Tamsulosin [Flomax] 0.4 mg PO QHS #30 capsule Amoxicillin/Potassium Clav [Augmentin 875-125 Tablet] 1 each PO BID #10 tablet Lactulose [Cephulac] 20 gm PO BID #60 oral.liqd Phenytoin [Dilantin] 100 mg PO Q8HR #90 capsule Furosemide [Lasix TAB] 40 mg PO QDAY #30 tablet Pregabalin [Lyrica] 100 mg PO BID #120 capsule HYDROcodone/APAP 5-325 [[place] 5-325 mg TAB] 1 each PO Q4H PRN #14 tablet PRN Reason: Pain, Moderate (4-6)
[2018-11-05] MEDS: GLUCOTROL PO SCH (09:48)
[2018-11-05] MEDS: DELTASONE PO SCH (09:50)
[2018-11-05] MEDS: VITAMIN D3 PO SCH (09:50)
[2018-11-05] MEDS: LASIX PO SCH (09:50)
[2018-11-05] MEDS: KEPPRA PO SCH (09:50)
[2018-11-05] MEDS: CEPHULAC PO SCH (09:50)
[2018-11-05] MEDS: ELAVIL PO SCH (09:51)
[2018-11-05] MEDS: LYRICA PO SCH ×2 (09:51)
[2018-11-05] MEDS: OxyCONTIN PO SCH (09:52)
[2018-11-05] MEDS: MIRALAX 3350 PO SCH (09:52)
[2018-11-05] MEDS: COREG PO SCH (09:53)
[2018-11-05] MEDS: ZITHROMAX 500 MG in NACL 0.9% 250ML 250 ML IV SCH (10:00)
[2018-11-05] MEDS: ZAROXOLYN PO SCH (10:00)
--- NOTE | 2018-11-05 14:36 | Consultation ---
History of Present Illness - Reason for Consult Consult date: 11/05/18 Reason for consult: Mental Health Evaluation Requesting physician: AMARA CHARLES - Chief Complaint Chief complaint: "I am doing well" - History of Present Psychiatric Illness 68 year old AA male who presented to the ER for AMS. Psychiatry was consulted to see patient for possible psy/mood do. Today the patient is calm and cooperative during the assessment. He stated that he had a hx of depression that stem from his right AKA. 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 He stated that he miss being a coil tier. He stated that he reside at a SNF because his cannot take care him by herself. He stated that his family visit him often at the SNF. He stated that he took a antidepressant in the past, but refuse to take anymore medication for depression at this time. He denies any previous suicide attempts when asked. He denies SI/HI's, AVH's, and being dep ressed. He denies erratic sleep and a poor appetite. He denies recreational drug use and alcohol consumption (etoh). Medications and Allergies Allergies Allergy/AdvReac Type Severity Reaction Status Date / Time Penicillins Allergy Unknown Verified 07/16/17 17:29 Home Medications Medication Instructions Recorded Confirmed Last Taken Type Atorvastatin Calcium 10 mg PO DAILY 08/30/18 11/01/18 08/30/18 History Carvedilol [Coreg] 25 mg PO BID 08/30/18 11/01/18 08/30/18 History Docusate Sodium [Colace CAP] 100 mg PO BID PRN 08/30/18 11/01/18 08/30/18 History Rivaroxaban [Xarelto Starter Pack] 20 each PO DAILY 08/30/18 11/01/18 08/30/18 History Venlafaxine [Effexor 37.5mg tab] 75 mg PO QHS 08/30/18 11/01/18 08/30/18 History levETIRAcetam [Keppra] 1,000 mg PO BID 08/30/18 11/01/18 08/30/18 History metOLazone [Zaroxolyn] 2.5 mg PO 3XW 08/30/18 11/01/18 08/30/18 History predniSONE [Prednisone] 5 mg PO DAILY 08/30/18 11/01/18 08/30/18 History glipiZIDE [Glipizide] 5 mg PO DAILY #30 tablet 09/03/18 11/01/18 Unknown Rx Acetaminophen [Arthritis Pain 650 mg PO Q6H PRN 11/01/18 11/01/18 Unknown History Relief] Amitriptyline [Elavil] 10 mg PO BID 11/01/18 11/01/18 Unknown History Cholecalciferol (Vitamin D3) 2,000 unit PO QDAY 11/01/18 11/01/18 Unknown History [Vitamin D3 2,000 UNIT CAP] Divalproex Dr [Rafy Pabon] 125 mg PO BID 11/01/18 11/01/18 Unknown History Magnesium Hydroxide [Milk of 30 ml PO DAILY PRN 11/01/18 11/01/18 Unknown History Magnesia] Polyethylene Glycol 3350 [Miralax 17 gm PO QDAY 11/01/18 11/01/18 Unknown History 3350] Amoxicillin/Potassium Clav 1 each PO BID #10 tablet 11/05/18 Unknown Rx [Augmentin 875-125 Tablet] Furosemide [Lasix TAB] 40 mg PO QDAY #30 tablet 11/05/18 Unknown Rx HYDROcodone/APAP 5-325 [[place] 1 each PO Q4H PRN #14 tablet 11/05/18 Unknown Rx 5-325 mg TAB] Lactulose [Cephulac] 20 gm PO BID #60 oral.liqd 11/05/18 Unknown Rx Phenytoin [Dilantin] 100 mg PO Q8HR #90 capsule 11/05/18 Unknown Rx Pregabalin [Lyrica] 100 mg PO BID #120 capsule 11/05/18 Unknown Rx Tamsulosin [Flomax] 0.4 mg PO QHS #30 capsule 11/05/18 Unknown Rx Active Meds: Active Medications Acetaminophen (Tylenol) 650 mg PO Q6H PRN PRN Reason: Pain, Mild (1-3) Last Admin: 11/02/18 18:37 Dose: 650 mg Documented by: Acetaminophen/Hydrocodone Bitart ([place] 5/325) 1 each PO Q4H PRN PRN Reason: Pain, Moderate (4-6) Last Admin: 11/05/18 14:08 Dose: 1 each Documented by: Albuterol (Proventil) 2.5 mg IH Q4HRT PRN PRN Reason: Shortness Of Breath Amitriptyline HCl (Elavil) 10 mg PO BID [facility] Last Admin: 11/05/18 09:51 Dose: 10 mg Documented by: Atorvastatin Calcium (Lipitor) 10 mg PO DAILY [facility] Last Admin: 11/05/18 09:50 Dose: 10 mg Documented by: Carvedilol (Coreg) 25 mg PO BID [facility] Last Admin: 11/05/18 09:53 Dose: Not Given Documented by: Cholecalciferol (Vitamin D3) 2,000 unit PO DAILY [facility] Last Admin: 11/05/18 09:50 Dose: 2,000 unit Documented by: Divalproex Sodium (Depakote Dr) 125 mg PO BID [facility] Last Admin: 11/05/18 09:51 Dose: 125 mg Documented by: Docusate Sodium (Colace) 100 mg PO BID PRN PRN Reason: Constipation Last Admin: 11/02/18 01:31 Dose: 100 mg Documented by: Furosemide (Lasix) 40 mg PO QDAY [facility] Last Admin: 11/05/18 09:50 Dose: 40 mg Documented by: Glipizide (Glucotrol) 5 mg PO QDDIAB [facility] Last Admin: 11/05/18 09:48 Dose: 5 mg Documented by: Azithromycin 500 mg/ Sodium (Chloride) 250 mls @ 250 mls/hr IV Q24HR [facility] Last Admin: 11/05/18 10:00 Dose: 250 mls/hr Documented by: Sodium Chloride (Nacl 0.45%) 500 mls @ 50 mls/hr IV DIRECT [facility] Last Admin: 11/04/18 03:15 Dose: 50 mls/hr Documented by: Insulin Human Lispro (Humalog) 0 unit SUB-Q ACHS [facility]; Protocol Last Admin: 11/05/18 11:49 Dose: Not Given Documented by: Lactulose (Cephulac) 20 gm PO BID [facility] Last Admin: 11/05/18 09:50 Dose: 20 gm Documented by: Levetiracetam (Keppra) 1,000 mg PO BID [facility] Last Admin: 11/05/18 09:50 Dose: 1,000 mg Documented by: Metolazone (Zaroxolyn) 2.5 mg PO MoWeFr [facility] Last Admin: 11/05/18 10:00 Dose: 2.5 mg Documented by: Oxycodone HCl (Oxycontin) 10 mg PO Q12HR [facility] Last Admin: 11/05/18 09:52 Dose: 10 mg Documented by: Polyethylene Glycol (Miralax 3350) 17 gm PO QDAY [facility] Last Admin: 11/05/18 09:52 Dose: 17 gm Documented by: Prednisone (Deltasone) 5 mg PO DAILY [facility] Last Admin: 11/05/18 09:50 Dose: 5 mg Documented by: Pregabalin (Lyrica) 25 mg PO BID [facility] Last Admin: 11/05/18 09:51 Dose: 25 mg Documented by: Pregabalin (Lyrica) 75 mg PO BID [facility] Last Admin: 11/05/18 09:51 Dose: 75 mg Documented by: Rivaroxaban (Xarelto) 20 mg PO QPMDIAB [facility] Last Admin: 11/04/18 17:19 Dose: 20 mg Documented by: Tamsulosin HCl (Flomax) 0.4 mg PO QHS [facility] Last Admin: 11/04/18 21:50 Dose: 0.4 mg Documented by: Venlafaxine HCl (Effexor Xr) 75 mg PO QHS [facility] Last Admin: 11/04/18 21:52 Dose: 75 mg Documented by: Past psychiatric history - Past Medical History Past Medical History: hypertension, seizures Past Surgical History: Other (Right AKA) - past Psychiatric treatment and history psychiatric treatment history: Hx of Depression. Denies a fam psy hx. - Social History Social history: other (Reside at [facility]) Mental Status Exam - Vital signs Last Vital Signs Temp 98.2 F 11/05/18 07:33 Pulse 75 11/05/18 10:00 Resp 20 11/05/18 10:00 BP 107/49 11/05/18 09:53 Pulse Ox 98 11/05/18 10:00 - Exam Narrative exam: MSE: Appearance: calm, cooperative Behavior: regular eye contact Speech: regular rate and tone Mood: "well" Affect: congruent to mood Thought Process: logica Thought Content: denies SI/HI and AVH's Motor Activity: sitting up in the bed Cognition: A/O x 3 Insight: appropriate Judgment: appropriate Results Result Diagrams: 11/05/18 05:01 05/17/19 05:01 Abnormal lab results 11/04/18 11/05/18 11/05/18 Range/Units 16:47 05:01 09:52 Hgb 10.4 L (11.8-15.2) gm/dl Hct 32.1 L (35.5-45.6) % MCV 78 L (84-94) fl MCH 25 L (28-32) pg RDW 16.0 H (13.2-15.2) % Plt Count 107 L (140-440) K/mm3 POC Glucose 68 L 114 H (70-105) All other labs normal. Assessment and Plan Assessment and plan: Impression: Hx of Depression. Today the patient is calm during the assessment. DDx: PTSD, Adjustment DO Recommendation/Plan: Discussed risk benefits of SSRI's for depression, he prefer not to take medication at this time. Psy sign off. Dispo: The patient will be returning back to the SNF. Staffed with Dr Hamilton Kate.
[2018-11-05] MEDS: XARELTO PO SCH (17:11)
[2018-11-05 17:30] VITALS: BP 112/71
[2018-11-08 07:04] LABS: Heparin-Induced Platelet Antib Negative (Negative); Unfractionated Heparin Negative (Negative)
--- NOTE | 2018-11-08 07:37 | Vascular Lab Report ---
PROCEDURE: LEFT LOWER EXTREMITY ARTERIAL DUPLEX DOPPLER TECHNIQUE: Duplex Doppler ultrasound of either the LEFT lower extremity arteries or arterial bypass grafts was performed with image documentation. CPT 44801-PT HISTORY: Left heel ulcer COMPARISONS: None . FINDINGS: Arterial waveforms: Triphasic . Thrombus/Stenosis: None . Color signal: Normal . Significant segmental velocity differential: None . Arterial bypass graft: Not present . IMPRESSION: No evidence of significant arterial insufficiency in the LEFT lower extremity. This document is electronically signed by James Kessler MD., Nov 08 2018 07:35:20 AM ET
== END 2018-11-05 17:50 | DRG 91 ==
LOC: ED 08:13 → EEVIPCON 08:13 → 2B-ACE 13:18
PROVIDERS: ADMIT Internal Medicine; ATTEND Internal Medicine
PROC: 4A033R1 Measurement of Arterial Saturation, Peripheral, Percutaneous Approach (ICD-10-PCS; principal; 2018-11-01)
DX: G92 Toxic encephalopathy (principal); N17.0 Acute kidney failure with tubular necrosis; J96.91 Respiratory failure, unspecified with hypoxia; I50.43 Acute on chronic combined systolic (congestive) and diastolic (congestive) heart failure; E66.2 Morbid (severe) obesity with alveolar hypoventilation; Z68.43 Body mass index [BMI] 50.0-59.9, adult; R65.10 Systemic inflammatory response syndrome (SIRS) of non-infectious origin without acute organ dysfunction; I13.0 Hypertensive heart and chronic kidney disease with heart failure and stage 1 through stage 4 chronic kidney disease, or unspecified chronic kidney disease; E87.0 Hyperosmolality and hypernatremia; E44.0 Moderate protein-calorie malnutrition; G89.4 Chronic pain syndrome; F20.9 Schizophrenia, unspecified; I95.9 Hypotension, unspecified; G40.909 Epilepsy, unspecified, not intractable, without status epilepticus; M19.90 Unspecified osteoarthritis, unspecified site; N18.2 Chronic kidney disease, stage 2 (mild); E11.22 Type 2 diabetes mellitus with diabetic chronic kidney disease; E83.52 Hypercalcemia; I48.2 Chronic atrial fibrillation; E11.42 Type 2 diabetes mellitus with diabetic polyneuropathy; R33.9 Retention of urine, unspecified; D69.6 Thrombocytopenia, unspecified; L89.159 Pressure ulcer of sacral region, unspecified stage; L89.629 Pressure ulcer of left heel, unspecified stage; F43.10 Post-traumatic stress disorder, unspecified; Z79.84 Long term (current) use of oral hypoglycemic drugs; Z89.611 Acquired absence of right leg above knee
CPT/HCPCS: 36415; 51702; 70450; 71045; 80048; 80053; 80076; 81001; 82140; 82310; 82550; 82553; 82803; 82962; 83036; 83735; 83880; 84439; 84443; 84484; 85025; 85027; 85610; 85730; 86022; 87040; 87076; 87086; 87186; 93005; 93010; 94760; 96360; 96361; G0378; A9270-GY; J0295; J0456; J1940; J7030; J7050; J7512

== ENCOUNTER 2019-03-26 00:36 | Emergency (ER) | payer MEDICARE ==
[2019-03-26] MEDS ORDERED: HYDROcodone/ACETAMINOPHEN 5-325 MG TAB PO ONE (01:29)
[2019-03-26] MEDS ORDERED: ONDANSETRON 4 MG ODT TAB PO ONE (01:29)
--- NOTE | 2019-03-26 03:22 | Emergency Department Report ---
ED Fall HPI - General Chief Complaint: Back Pain/Injury Stated Complaint: NECK PAIN Source: patient, EMS Mode of arrival: Stretcher - History of Present Illness Initial Comments: Patient is a 69-year-old -[place] male with a past medical history of obesity, CHF, yri-etllqni-rbbixzjmd diabetes, chronic neck and low back pain and right leg above-knee amputation presents to the ED with complaint of acute onset persistent severe headache, neck pain, low back pain after he slipped off the chair when being assisted shower over 12 hours ago, landing on his back and hitting his head and neck on furniture. Patient states that initially pain was mild but pain started getting worse about 6 hours ago despite taking his regular narcotic pain medications for chronic pain. Patient states that the pain in the neck, lower back and headache worsened. Patient denies nausea, vomiting, loss of consciousness, dizziness, chest pain, abdominal pain, numbness and tingling of lower and upper extremities bilaterally, change in vision, abdominal pain, syncope, urinary or bowel incontinence and saddle paresthesia. MD Complaint: fall, other (neck pain; headache and lower back pain) -: Sudden, hour(s) (12) Fall From: standing, wheelchair When Fall Occurred: other (>12 hours) Fall Witnessed: yes, by living facility s Place Fall Occurred: group home/SNF Loss of Consciousness: none Prolonged Down Time?: no Symptoms Prior to Fall: none Location: head, neck, back (lower) Severity: severe Severity scale (0 -10): 7 Quality: sharp, aching Context: tripped/slipped Associated Symptoms: headache, neck pain. denies: numbness, weakness, chest paint, shortness of breath, abdominal pain, hematuria, lightheaded, vertigo, confusion - Related Data Home Medications Medication Instructions Recorded Confirmed Last Taken Atorvastatin Calcium 10 mg PO DAILY 08/30/18 11/01/18 08/30/18 Carvedilol [Coreg] 25 mg PO BID 08/30/18 11/01/18 08/30/18 Docusate Sodium [Colace CAP] 100 mg PO BID PRN 08/30/18 11/01/18 08/30/18 Rivaroxaban [Xarelto Starter Pack] 20 each PO DAILY 08/30/18 11/01/18 08/30/18 Venlafaxine [Effexor 37.5mg tab] 75 mg PO QHS 08/30/18 11/01/18 08/30/18 levETIRAcetam [Keppra] 1,000 mg PO BID 08/30/18 11/01/18 08/30/18 metOLazone [Zaroxolyn] 2.5 mg PO 3XW 08/30/18 11/01/18 08/30/18 predniSONE [Prednisone] 5 mg PO DAILY 08/30/18 11/01/18 08/30/18 Acetaminophen [Arthritis Pain 650 mg PO Q6H PRN 11/01/18 11/01/18 Unknown Relief] Amitriptyline [Elavil] 10 mg PO BID 11/01/18 11/01/18 Unknown Cholecalciferol (Vitamin D3) 2,000 unit PO QDAY 11/01/18 11/01/18 Unknown [Vitamin D3 2,000 UNIT CAP] Divalproex Dr [Depakote Dr] 125 mg PO BID 11/01/18 11/01/18 Unknown Magnesium Hydroxide [Milk of 30 ml PO DAILY PRN 11/01/18 11/01/18 Unknown Magnesia] Polyethylene Glycol 3350 [Miralax 17 gm PO QDAY 11/01/18 11/01/18 Unknown 3350] Previous Rx's Medication Instructions Recorded Last Taken Type glipiZIDE [Glipizide] 5 mg PO DAILY #30 tablet 09/03/18 Unknown Rx Amoxicillin/Potassium Clav 1 each PO BID #10 tablet 11/05/18 Unknown Rx [Augmentin 875-125 Tablet] Furosemide [Lasix TAB] 40 mg PO QDAY #30 tablet 11/05/18 Unknown Rx HYDROcodone/APAP 5-325 [[place] 1 each PO Q4H PRN #14 tablet 11/05/18 Unknown Rx 5-325 mg TAB] Lactulose [Cephulac] 20 gm PO BID #60 oral.liqd 11/05/18 Unknown Rx Phenytoin [Dilantin] 100 mg PO Q8HR #90 capsule 11/05/18 Unknown Rx Pregabalin 100 mg PO BID #120 capsule 11/05/18 Unknown Rx Tamsulosin [Flomax] 0.4 mg PO QHS #30 capsule 11/05/18 Unknown Rx Allergies Allergy/AdvReac Type Severity Reaction Status Date / Time Penicillins Allergy Unknown Verified 07/16/17 17:29 ED Review of Systems ROS: Stated complaint: NECK PAIN Other details as noted in HPI Constitutional: denies: chills, fever Eyes: denies: eye pain, eye discharge, vision change ENT: denies: ear pain, throat pain Respiratory: denies: cough, orthopnea, shortness of breath, SOB with exertion, SOB at rest, wheezing Cardiovascular: denies: chest pain, palpitations Endocrine: no symptoms reported. denies: excessive sweating, increased urine Gastrointestinal: denies: abdominal pain, nausea, vomiting, diarrhea, constipation, hematemesis Genitourinary: denies: urgency, dysuria Musculoskeletal: back pain (low back pain), arthralgia (neck pain), myalgia. denies: joint swelling Skin: denies: rash, lesions Neurological: headache. denies: weakness, numbness, paresthesias Psychiatric: denies: anxiety, depression Hematological/Lymphatic: denies: easy bleeding, easy bruising ED Past Medical Hx - Past Medical History Hx Hypertension: Yes Hx Congestive Heart Failure: Yes Hx Diabetes: Yes Hx Arthritis: Yes Hx Seizures: Yes Hx Psychiatric Treatment: Yes (bipolar, depression) Hx Asthma: Yes Hx COPD: Yes - Surgical History Additional Surgical History: right leg amputation 10 years ago - Social History Smoking Status: Never Smoker - Medications Home Medications: Home Medications Medication Instructions Recorded Confirmed Last Taken Type Atorvastatin Calcium 10 mg PO DAILY 08/30/18 11/01/18 08/30/18 History Carvedilol [Coreg] 25 mg PO BID 08/30/18 11/01/18 08/30/18 History Docusate Sodium [Colace CAP] 100 mg PO BID PRN 08/30/18 11/01/18 08/30/18 History Rivaroxaban [Xarelto Starter Pack] 20 each PO DAILY 08/30/18 11/01/18 08/30/18 History Venlafaxine [Effexor 37.5mg tab] 75 mg PO QHS 08/30/18 11/01/18 08/30/18 History levETIRAcetam [Keppra] 1,000 mg PO BID 08/30/18 11/01/18 08/30/18 History metOLazone [Zaroxolyn] 2.5 mg PO 3XW 08/30/18 11/01/18 08/30/18 History predniSONE [Prednisone] 5 mg PO DAILY 08/30/18 11/01/18 08/30/18 History glipiZIDE [Glipizide] 5 mg PO DAILY #30 tablet 09/03/18 11/01/18 Unknown Rx Acetaminophen [Arthritis Pain 650 mg PO Q6H PRN 11/01/18 11/01/18 Unknown History Relief] Amitriptyline [Elavil] 10 mg PO BID 11/01/18 11/01/18 Unknown History Cholecalciferol (Vitamin D3) 2,000 unit PO QDAY 11/01/18 11/01/18 Unknown History [Vitamin D3 2,000 UNIT CAP] Divalproex Dr [Depakote Dr] 125 mg PO BID 11/01/18 11/01/18 Unknown History Magnesium Hydroxide [Milk of 30 ml PO DAILY PRN 11/01/18 11/01/18 Unknown History Magnesia] Polyethylene Glycol 3350 [Miralax 17 gm PO QDAY 11/01/18 11/01/18 Unknown History 3350] Amoxicillin/Potassium Clav 1 each PO BID #10 tablet 11/05/18 Unknown Rx [Augmentin 875-125 Tablet] Furosemide [Lasix TAB] 40 mg PO QDAY #30 tablet 11/05/18 Unknown Rx HYDROcodone/APAP 5-325 [[place] 1 each PO Q4H PRN #14 tablet 11/05/18 Unknown Rx 5-325 mg TAB] Lactulose [Cephulac] 20 gm PO BID #60 oral.liqd 11/05/18 Unknown Rx Phenytoin [Dilantin] 100 mg PO Q8HR #90 capsule 11/05/18 Unknown Rx Pregabalin 100 mg PO BID #120 capsule 11/05/18 Unknown Rx Tamsulosin [Flomax] 0.4 mg PO QHS #30 capsule 11/05/18 Unknown Rx ED Physical Exam - General Limitations: No Limitations General appearance: alert, in no apparent distress - Head Head exam: Present: atraumatic, normocephalic, normal inspection - Eye Eye exam: Present: normal appearance, PERRL, EOMI. Absent: scleral icterus, conjunctival injection Pupils: Present: normal accommodation - ENT ENT exam: Present: normal exam, normal orophraynx, mucous membranes moist, TM's normal bilaterally, normal external ear exam - Neck Neck exam: Present: normal inspection, tenderness (palpable cervical paraspinal musculoskeletal tenderness), full ROM. Absent: lymphadenopathy - Respiratory Respiratory exam: Present: normal lung sounds bilaterally. Absent: respiratory distress, wheezes, rales, chest wall tenderness, decreased breath sounds, prolonged expiratory - Cardiovascular Cardiovascular Exam: Present: regular rate, normal rhythm, normal heart sounds. Absent: systolic murmur, diastolic murmur, rubs, gallop - GI/Abdominal GI/Abdominal exam: Present: soft, normal bowel sounds. Absent: tenderness, guarding, rebound, hyperactive bowel sounds, organomegaly - Rectal Rectal exam: Present: deferred - Extremities Exam Extremities exam: Present: normal inspection, full ROM, normal capillary refill - Back Exam Back exam: Present: normal inspection, full ROM, tenderness (palpable lumbosacral paraspinal musculoskeletal tenderness), muscle spasm, paraspinal tenderness - Neurological Exam Neurological exam: Present: alert, oriented X3, CN II-XII intact, abnormal gait (Baseline chronic nonambulatory due to right AKA, therefore wheelchair-bound), reflexes normal - Psychiatric Psychiatric exam: Present: normal affect, normal mood - Skin Skin exam: Present: warm, dry, intact, normal color. Absent: rash ED Course - Reevaluation(s) Reevaluation #1: 03/26/19 03:24 This is a 69-year-old male with a history of chronic morbid obesity, chronic low back and neck pain, CHF and right AKA who presents to the ED with complaint of headache, worsening neck and low back pain after he slipped and fell in the bathroom when being held up to shower by facility staff over 12 hours ago. In the ED, patient is alert and oriented 3 and is not in distress but appears to be in pain. Head CT scan without contrast, C-spine and L-spine CT scan was without contrast was also ordered. Patient was also treated in the ED for pain. On reevaluation, patient's pain is well controlled with medications. Patient sleeping comfortably in the room in no distress but arousable. Head CT scan without contrast shows no acute intracranial abnormalities or hemorrhage. C- spine CT scan without contrast shows no acute fractures or subluxations. The L- spine CT scan without contrast shows no acute fractures or subluxations but chronic degenerative disc disease. Patient was discharged home and advised to continue taking his pain medications as previously prescribed and to follow-up with his primary care physician in 5-7 days for reevaluation or return to the ED immediately if symptoms get worse. 03/26/19 03:54 ED Medical Decision Making - Radiology Data Radiology results: report reviewed, image reviewed Head CT scan without contrast shows no acute intracranial abnormalities or hemorrhage. C-spine CT scan without contrast shows no acute fractures or subluxations. The L-spine CT scan without contrast shows no acute fractures or subluxations but chronic degenerative disc disease. - Medical Decision Making This is a 69-year-old male with a history of chronic morbid obesity, chronic low back and neck pain, CHF and right AKA who presents to the ED with complaint of headache, worsening neck and low back pain after he slipped and fell in the bathroom when being held up to shower by facility staff over 12 hours ago. In the ED, patient is alert and oriented 3 and is not in distress but appears to be in pain. Head CT scan without contrast, C-spine and L-spine CT scan was without contrast was also ordered. Patient was also treated in the ED for pain. On reevaluation, patient's pain is well controlled with medications. Patient sleeping comfortably in the room in no distress but arousable. Head CT scan without contrast shows no acute intracranial abnormalities or hemorrhage. C- spine CT scan without contrast shows no acute fractures or subluxations. The L- spine CT scan without contrast shows no acute fractures or subluxations but chronic degenerative disc disease. Patient was discharged home and advised to continue taking his pain medications as previously prescribed and to follow-up with his primary care physician in 5-7 days for reevaluation or return to the ED immediately if symptoms get worse. - Differential Diagnosis cervical sprain; muscle spasm; chronic back pain Critical care attestation.: If time is entered above; I have spent that time in minutes in the direct care of this critically ill patient, excluding procedure time. ED Disposition Clinical Impression: Acute exacerbation of chronic low back pain, Cervical paraspinal muscle spasm Disposition: TO HOME OR SELFCARE Is pt being admited?: No Does the pt Need Aspirin: No Condition: Stable Instructions: Muscle Spasm (ED), Cervical Sprain (ED), Muscle Strain (ED), Chronic Pain (ED) Additional Instructions: Take your regular pain medications at home as needed and as previously prescribed. Return to the ED immediately if symptoms get worse. Otherwise follow-up with your primary care physician in 5-7 days for reevaluation. Referrals: ROD PAUL MD [Primary Care Provider] - 3-5 Days Time of Disposition: 03:57 Print Language: MEXICAN
--- NOTE | 2019-03-26 03:25 | Cat Scan Report ---
CT head/brain wo con INDICATION: fall - headache. TECHNIQUE: Routine CT head without contrast. All CT scans at this location are performed using CT dos e reduction for ALARA by means of automated exposure control. COMPARISON: CT head 11/01/2018 FINDINGS: BRAIN / INTRACRANIAL CONTENTS: No acute hemorrhage, mass effect, midline shift, or hydrocephalus. No appreciable acute large territorial or lacunar infarct. No chronic infarct or focal atrophy. Normal b rain volume and ventricular/sulcal size for age. ORBITS: No significant abnormality of visualized orbits. SINUSES / MASTOIDS: No significant abnormality of visualized sinuses and mastoid air cells. ADDITIONAL FINDINGS: None. IMPRESSION: 1. No acute intracranial abnormality. Signer Name: Deena Scott MD Signed: 03/26/2019 3:21 AM Workstation Name: [id number]
--- NOTE | 2019-03-26 03:35 | Cat Scan Report ---
CT CERVICAL SPINE WITHOUT CONTRAST INDICATION / CLINICAL INFORMATION: fall - headache. TECHNIQUE: Axial CT images were obtained through the cervical spine. Sagittal and coronal reformatted images wer e produced. All CT scans at this location are performed using CT dose reduction for ALARA by means of automated exposure control. COMPARISON: None available. FINDINGS: STATEMENTS: The craniocervical junction is partially excluded from [id number] on this examination, but is fully visualized on CT brain performed same day. VERTEBRAE: No acute displaced fracture identified. Vertebral body heights are maintained. ALIGNMENT: No significant abnormality. DISC SPACES: Multilevel mild to moderate disc space narrowing. FACET JOINTS: Multilevel uncovertebral and facet hypertrophy resulting in mild to moderate foraminal narrowing. CRANIOCERVICAL JUNCTION:No significant abnormality (as seen on the CT head, as detailed above). SPINAL CANAL: Multilevel mild canal narrowing secondary to degenerative disc disease, most prominent at C5-6 where the central canal measures 7 mm AP. PARASPINAL SOFT TISSUES: No significant abnormality. ADDITIONAL FINDINGS: None. LUNG APICES: No significant abnormality of visualized lungs. IMPRESSION: 1. No acute fracture identified in the cervical spine. 2. Multilevel cervical spondylosis as detailed above. Signer Name: Deena Scott MD Signed: 03/26/2019 3:30 AM Workstation Name: [id number]
--- NOTE | 2019-03-26 03:42 | Cat Scan Report ---
CT LUMBAR SPINE WITHOUT CONTRAST INDICATION / CLINICAL INFORMATION: fall - headache. TECHNIQUE: Axial CT images were obtained through the lumbar spine. Sagittal and coronal reformatted images were produced. All CT scans at this location are performed using CT dose reduction for ALARA by means of a utomated exposure control. COMPARISON: None available. FINDINGS: VERTEBRAE: No acute displaced fracture identified. Vertebral body heights are maintained. ALIGNMENT: No significant abnormality. DISC SPACES: Mild disc space narrowing at L3-4. FACET JOINTS: Mild facet hypertrophy in the lower lumbar spine resulting in mild bilateral foraminal narrowing at L4-5. SPINAL CANAL: No significant abnormality. SACRUM:No significant abnormality of the visualized sacrum. PARASPINAL SOFT TISSUES: No significant abnormality. ADDITIONAL FINDINGS: None. IMPRESSION: 1. No acute displaced fracture identified in the lumbar spine. 2. Mild degenerative change of the lower lumbar spine. Signer Name: Deena Scott MD Signed: 03/26/2019 3:37 AM Workstation Name: [id number]
[2019-03-26 07:13] VITALS: BP 146/72
== END 2019-03-26 06:50 | disposition home or self-care (01) ==
LOC: ED 00:36
DX: G89.29 Other chronic pain (principal); M54.5 Low back pain; M62.838 Other muscle spasm; I11.0 Hypertensive heart disease with heart failure; I50.9 Heart failure, unspecified; E11.9 Type 2 diabetes mellitus without complications; M19.90 Unspecified osteoarthritis, unspecified site; F31.9 Bipolar disorder, unspecified; J44.9 Chronic obstructive pulmonary disease, unspecified; Z88.0 Allergy status to penicillin
CPT/HCPCS: 70450; 72125; 72131; Q0162